=== PATIENT | male | born 1990 | race Caucasian/White ===

== ENCOUNTER 2020-05-18 16:10 | Outpatient (REF) | payer OTHER, SELFPAY | END 2020-05-18 16:11 | disposition home or self-care (01) | LOC: HO.LAB 16:10 | PROVIDERS: PCP Internal Medicine; Visit Provider Internal Medicine | DX: Z20.828 Contact with and (suspected) exposure to other viral communicable diseases (principal) | CPT/HCPCS: U0003 ==

== ENCOUNTER 2020-09-16 09:08 | Outpatient (REF) | payer OTHER, SELFPAY | END 2020-09-16 09:09 | disposition home or self-care (01) | LOC: HO.LAB 09:08 | PROVIDERS: Visit Provider Internal Medicine | DX: Z20.822 Contact with and (suspected) exposure to COVID-19 (principal) | CPT/HCPCS: 36415; C9803; U0003; U0005 ==

== ENCOUNTER 2020-09-22 08:47 | Outpatient (REF) | payer OTHER, SELFPAY | END 2020-09-22 08:48 | disposition home or self-care (01) | LOC: HO.LAB 08:47 | PROVIDERS: Visit Provider Internal Medicine | DX: Z20.822 Contact with and (suspected) exposure to COVID-19 (principal) | CPT/HCPCS: 36415; C9803; U0003; U0005 ==

== ENCOUNTER 2020-10-04 09:01 | Outpatient (REF) | payer OTHER, SELFPAY | END 2020-10-04 09:02 | disposition home or self-care (01) | LOC: HO.LAB 09:01 | PROVIDERS: Visit Provider Internal Medicine | DX: Z20.822 Contact with and (suspected) exposure to COVID-19 (principal) | CPT/HCPCS: 36415; C9803; U0003; U0005 ==

== ENCOUNTER 2021-02-10 09:22 | Outpatient (REF) | payer OTHER, SELFPAY ==
[2021-02-10 10:01] LABS: MANUAL DIFF FLAG NO
[2021-02-10 10:07] LABS: Glucose Urine UA NEG (NEG); Leukocyte Esterase Urine NEG (NEG); Nitrite Urine NEG (NEG); Specific Gravity - Urine >= 1.030 (1.005-1.025); UACC Culture Trigger NO; Urine Blood 1+ (NEG); Urine Ketones NEG (NEG); Urine Protein NEG (NEG-TRACE)
[2021-02-10 10:13] LABS: Basophils Percent Auto 0.4 % (0-2); Eosinophils Absolute Auto 0.2 X10*3/uL (0.0-0.4); Eosinophils Percent Auto 3.4 % (0-4); Hematocrit 45.2 % (42-52); Hemoglobin 15.3 g/dl (14.0-18.0); Imm Gran Abs Auto 0.03 X10*3/uL (0.00-0.03); Imm Gran Pct Auto 0.5 % (0.0-0.4); Lymphocytes Absolute Auto 1.8 X10*3/uL (1.2-4.9); Lymphocytes Percent Auto 32.4 % (20-40); Mean Corpuscular HGB Conc 33.8 g/dl (31.0-36.0); Mean Corpuscular Hemoglobin 30.4 pg (27.0-33.0); Mean Corpuscular Volume 89.9 fL (80-98); Mean Platelet Volume 9.4 fL (9.4-12.4); Monocytes Absolute Auto 0.5 X10*3/uL (0.1-1.2); Monocytes Percent Auto 8.2 % (2-11); Neutrophils Absolute Auto 3.1 X10*3/uL (2.0-8.3); Neutrophils Percent Auto 55.1 % (45-73); Platelet Count 287 X10*3/uL (160-400); Red Blood Count 5.03 X10*6/uL (4.60-5.80); Red Cell Distribution Width 12.5 % (11.0-16.0); White Blood Count 5.6 X10*3/uL (4.8-10.8)
[2021-02-10 10:14] LABS: Appearance Urine CLEAR; Color Urine YELLOW
[2021-02-10 10:19] LABS: Sperm Urine NOTED; Squamous Epithelial Cell Urine 1+ /LPF
[2021-02-10 11:13] LABS: TSH reflex Free T4 2.03 uIU/mL (0.32-4.0); Vitamin D 25-OH Total 23.1 ng/mL (>30)
[2021-02-10 11:14] LABS: Alanine Aminotransferase 21 U/L (0-40); Albumin Level 4.6 g/dL (3.5-5.0); Alkaline Phosphatase 52 U/L (39-117); Anion Gap 11 (12-20); Aspartate Amino Transferase 15 U/L (5-37); Bilirubin Total 0.7 mg/dL (0.0-1.0); Blood Urea Nitrogen 13 mg/dL (9-16); Calcium 9.4 mg/dL (8.4-10.2); Carbon Dioxide 26 mmol/L (22-29); Chloride 108 mmol/L (96-108); Cholesterol 235 mg/dL; Estimated Glomerular Filt Rate > 60; Glucose Fasting 90 mg/dL (60-99); HDL Cholesterol 65 mg/dL; LDL Cholesterol Calculated 127 mg/dl; Potassium 4.4 mmol/L (3.3-5.1); Sodium 141 mmol/L (135-145); Total Protein 7.5 g/dL (6.5-8.0); Triglycerides 217 mg/dL
== END 2021-02-10 09:23 | disposition home or self-care (01) ==
LOC: HO.LAB 09:22
PROVIDERS: PCP Internal Medicine; Visit Provider Internal Medicine
DX: Z00.00 Encounter for general adult medical examination without abnormal findings (principal); E55.9 Vitamin D deficiency, unspecified; E66.3 Overweight
CPT/HCPCS: 36415; 80053; 80061; 81001; 82306; 84443; 85025

== ENCOUNTER 2021-09-22 11:12 | Outpatient (REF) | payer OTHER, SELFPAY ==
--- NOTE | ~2021-09-22 | XR_ITS ---
EXAMINATION: XR RIGHT SHOULDER XR RIGHT SCAPULA CLINICAL INFORMATION: Pain in right shoulder COMPARISON: Chest radiograph 08/29/2018 TECHNIQUE: AP and Y views of the right scapula AP, Grashey, lateral scapular Y view of the right shoulder FINDINGS: The bones and soft tissues are normal. No fracture. Glenohumeral and acromioclavicular alignment is anatomic with normal joint space. No abnormal soft tissue calcifications. XR/XR scapula RT IMPRESSION: Normal shoulder
--- NOTE | ~2021-09-22 | XR_ITS ---
EXAMINATION: XR RIGHT SHOULDER XR RIGHT SCAPULA CLINICAL INFORMATION: Pain in right shoulder COMPARISON: Chest radiograph 08/29/2018 TECHNIQUE: AP and Y views of the right scapula AP, Grashey, lateral scapular Y view of the right shoulder FINDINGS: The bones and soft tissues are normal. No fracture. Glenohumeral and acromioclavicular alignment is anatomic with normal joint space. No abnormal soft tissue calcifications. XR/XR shoulder RT min 2V IMPRESSION: Normal shoulder
== END 2021-09-22 11:13 | disposition home or self-care (01) ==
LOC: HO.XRAY 11:12
PROVIDERS: PCP Internal Medicine; Visit Provider Nurse Practitioner Family
DX: M25.511 Pain in right shoulder (principal)
CPT/HCPCS: 73010; 73030

== ENCOUNTER 2021-09-27 22:15 | Emergency (ER) | payer OTHER, SELFPAY ==
--- NOTE | ~2021-09-27 | XR_ITS ---
EXAMINATION: XR SHOULDER, RIGHT CLINICAL INFORMATION: Shoulder pain COMPARISON: Shoulder radiographs 09/22/2021, 5 days ago TECHNIQUE: AP external rotation, Grashey, scapular Y, and axillary views of the right shoulder. FINDINGS: The bones and soft tissues are again seen to be normal. No fracture. Glenohumeral and acromioclavicular alignment is anatomic with normal joint space. No abnormal soft tissue calcifications. XR/XR shoulder RT min 2V IMPRESSION: Normal right shoulder.
[2021-09-27 22:21] VITALS: BP 161/102; PULSE 79; RESP 16; TEMP 36.9; O2SAT 98; BMI 33.4
--- NOTE | 2021-09-27 22:59 | ED.GENADULT ---
HPI - General Adult General Chief complaint: Extremity Problem Stated complaint: rt shoulder pain Time Seen by Provider: 09/27/21 22:59 Source: patient Mode of arrival: ambulatory Limitations: no limitations History of Present Illness HPI narrative: Patient is a 31 year old male presenting to the emergency department today with right shoulder and neck pain. Patient states that he has been having right shoulder and right neck pain for the last few weeks. Patient states that it starts on the right side of his neck and goes down into his shoulder. Patient denies any dizziness, lightheadedness, abdominal pain, nausea, vomiting, fever, chills, blurry vision, double vision, loss of vision, chest pain, difficulty breathing, shortness of breath, back pain, night sweats, pain with urination, increased urinary frequency, increased urinary urgency, blood in his urine or stool, syncope or a near syncopal episode, recent trauma or falls, bowel incontinence, bladder incontinence, bowel retention, bladder retention, or any other complaints at this time. Onset (ago): week(s) Location: neck and upper extremity Radiation: extremity Severity: mild Severity scale (1-10): 3 Quality: dull Pain Consistency: intermittent Relieving factors: none Exacerbating factors: none Associated symptoms: denies other symptoms Related Data Home Medications Medication Instructions Recorded Confirmed tizanidine 4 mg tablet 4 mg PO TID PRN 01/18/21 07/21/21 Previous Rx's Medication Instructions Recorded benzonatate 100 mg capsule 100 mg PO BID PRN #14 cap 07/21/21 acetaminophen 500 mg tablet 500 - 1,000 mg PO Q6H PRN #30 tab 09/22/21 nabumetone 500 mg tablet 500 mg PO BID #20 tab 09/22/21 cyclobenzaprine 10 mg tablet 10 mg PO TID PRN 7 Days #20 tab 09/27/21 Allergies Allergy/AdvReac Type Severity Reaction Status Date / Time No Known Allergies Allergy Verified 09/22/21 10:52 Review of Systems Constitutional: Constitutional: Reports no additional constitutional complaints, Denies chills, Denies fever(s) and Denies night sweats Eyes: Eyes: Reports no additional eye complaints, Denies blurry vision, Denies change in vision, Denies diplopia, Denies eye discharge, Denies loss of vision and Denies eye pain ENT: Denies dizziness Cardiovascular: Cardiovascular: Reports no additional cardiovascular complaints, Denies chest pain, Denies lightheadedness, Denies Loss of Consciousness and Denies dyspnea Respiratory: Respiratory: Reports no additional respiratory complaints and Denies dyspnea Gastrointestinal: Gastrointestinal: Reports no additional gastrointestinal complaints, Denies abdominal pain, Denies melena, Denies hematochezia, Denies change in bowel habits and Denies change in stool character Genitourinary: Genitourinary: Reports no additional male genitourinary complaints, Denies hematuria, Denies oliguria, Denies difficulty urinating, Denies dysuria, Denies urinary frequency, Denies urinary hesitancy, Denies urinary incontinence and Denies urinary urgency Musculoskeletal: Musculoskeletal: Reports no additional musculoskeletal complaints, Denies numbness and Denies tingling Comments: right neck and shoulder pain Neurologic: Denies dizziness, Denies loss of vision, Denies numbness and Denies tingling Psychiatric: Psychiatric: Reports no additional psychiatric complaints Endocrine: Endocrine: Reports no additional endocrine complaints Hematologic/Lymphatic: Hematologic/Lymphatic: Reports no additional hematologic/lymphatic complaints Allergic/Immunologic: Allergic/Immunologic: Reports no additional allergic/immunologic complaints [facility] Past Medical History Attestation statement: The following information was validated with the patient. Source: old records reviewed Medical History Acute sinusitis Annual physical exam Anxiety Chronic pain of right knee Depression Headache History of meconium aspiration Low back pain Migraine Overweight (BMI 25.0-29.9) Surgical History History of arthroscopy of right knee (~06/25/13) Family History Family History Father Diabetes Stroke Hypertension Mother Diabetes Social History Social History Housing: Apartment Alcohol intake: current Alcohol intake frequency: holidays/special occasions only Patient Tobacco Use Status: Never used Tobacco e-Cigarette/Vaping Use: Never Used Second Hand Smoke Exposure: Yes Advance Directives: No Advance Directives Information Provided: No service: No Current occupational status: unemployed Cognitive needs: No Hearing needs: No Vision needs: Yes (glasses) Physical Exam ED Vital Signs: Vital Signs - 24 hr 09/27/21 22:21 Temperature 98.4 F Pulse Rate 79 Respiratory Rate 16 Blood Pressure 161/102 H Pulse Oximetry 98 BMI result Body Mass Index 33.4 Const General: cooperative, no acute distress, alert and awake Nutritional Appearance: well nourished Orientation/consciousness: patient oriented x3 Limitations: no limitations HENMT Head: Yes normal to inspection and Yes atraumatic Ears: hearing grossly normal bilaterally and external ears normal General nose exam: Normal external nose present, no nasal discharge noted and no epistaxis Face and sinus: Yes normal facial exam, No abrasion and No laceration Mouth: Normal oral and palatal mucosa present, no drooling and no muffled voice Eyes General: appearance normal, both eyes and all related structures Periorbital: periorbital findings normal Eyelids: Yes eyelids normal Conjunctivae: conjunctivae normal Pupils: Equal, round and reactive pupils present EOM: EOMs intact bilaterally Neck Neck: Yes normal visual inspection, Yes full ROM and Yes no lymphadenopathy Chest Chest palpation & inspection: normal inspection of the chest Resp Effort & Inspection: normal respiratory effort and able to speak in complete sentences GI Inspection: Yes normal to inspection Neuro General: patient oriented x3 and moves all extremities Cranial nerves: Yes Equal, round and reactive pupils present Cognition (Neuro): normal cognition Motor exam (neuro): 5/5 motor strength present throughout Sensory Exam: Normal double simultaneous stimulation for sensation Coordination: [id number] test normal Extrem General: Yes normal to inspection, Yes full ROM and Yes capillary refill normal Psych Appearance: grossly normal Mental Status: mental status grossly normal Affect: normal affect Attitude: cooperative Thought process: Normal thought process present Thought content: Normal thought content present Insight: Good insight present (Psych) Medical Decision Making MDM Narrative Medical decision making narrative: Patient is a 31 year old male presenting to the emergency department today with right shoulder and right neck pain. Patient's physical exam was unremarkable. Patient's right shoulder x-ray showed no acute process. I explained my physical exam findings as well as all test results to the patient. I answered all questions asked by the patient. Patient received IM Solu-medro, IM Torado, and PO Flexeril which he stated helped his pain significantly. I stressed the importance of the patient taking his medication as prescribed. I stressed the importance of the patient following up with his primary care provider and an orthopedic provider. I stressed the importance of the patient returning to the emergency department immediately if his symptoms were to worsen or if he were to develop any dizziness, shortness of breath, difficulty breathing, chest pain, blurry vision, loss of vision, nausea, vomiting, abdominal pain, fever, chills, back pain, or any other complaints. Patient verbalized agreement and understanding with this treatment plan and discharge. Differential Diagnosis Differential Diagnosis: shoulder pain, neck pain, cervical radiculopathy Medical Records Medical records reviewed: Yes I reviewed the patient's medical records. Imaging Data Right shoulder x-ray: Attestation: I personally reviewed and interpreted this imaging study as follows: My impression: No acute fracture. Radiologist's impression: EXAMINATION: XR SHOULDER, RIGHT CLINICAL INFORMATION: Shoulder pain? COMPARISON: Shoulder radiographs 09/22/2021, 5 days ago? TECHNIQUE: AP external rotation, Grashey, scapular Y, and axillary views of the right shoulder. FINDINGS: The bones and soft tissues are again seen to be normal. No fracture. Glenohumeral and acromioclavicular alignment is anatomic with normal joint space. No abnormal soft tissue calcifications.? XR/XR shoulder RT min 2V IMPRESSION: Normal right shoulder. Dictated By: ELANA RICO MD Signed By: Electronically signed by ELANA RICO MD 09/27/21 [id number] Discharge Plan Discharge Clinical Impression: Cervical radiculopathy Patient Disposition: Home, Self-Care Instructions: Cervical Radiculopathy (ED) Additional Instructions: Call to schedule a follow up appointment with an Orthopedic provider. Follow up with your primary care provider. Return to the emergency department immediately if your symptoms worsen or if you develop any dizziness, shortness of breath, difficulty breathing, chest pain, blurry vision, loss of vision, nausea, vomiting, abdominal pain, fever, chills, back pain, or any other complaints. Prescriptions: New cyclobenzaprine 10 mg tablet 10 mg PO TID PRN (Reason: muscle spasm) 7 Days Qty: 20 0RF No Action tizanidine 4 mg tablet 4 mg PO TID PRN0RF benzonatate 100 mg capsule 100 mg PO BID PRN (Reason: cough) Qty: 14 0RF nabumetone 500 mg tablet 500 mg PO BID Qty: 20 0RF acetaminophen 500 mg tablet 500 - 1,000 mg PO Q6H PRN (Reason: pain) Qty: 30 0RF Referrals: aSmpson Arreola MD [Primary Care Provider] - 2 days Raheel Soriano MD [Physician] - 2 days Stand Alone Forms: Work/School Release Print Language: Armenian
[2021-09-28] MEDS: Cyclobenzaprine HCl 10 MG TABLET PO (00:19)
[2021-09-28] MEDS: Ketorolac Tromethamine 15 MG/ML VIAL IM (00:21)
[2021-09-28] MEDS: methylPREDNISolone Sod Succ 125 MG/2 ML VIAL 120 MG IM (00:21)
== END 2021-09-28 00:36 | disposition home or self-care (01) ==
PROVIDERS: Emergency Provider Internal Medicine; PCP Internal Medicine
DX: M54.12 Radiculopathy, cervical region (principal); M25.511 Pain in right shoulder
CPT/HCPCS: 73030; 96372; 99284; J1885; J2930

== ENCOUNTER → 2021-10-17 14:49 | Outpatient (BNVA) | payer OTHER, SELFPAY | PROVIDERS: PCP Internal Medicine; Visit Provider Physician Assistant | DX: M25.511 Pain in right shoulder (principal) | CPT/HCPCS: 99202 ==

== ENCOUNTER → 2021-11-11 08:41 | Outpatient (BNVA) | payer OTHER, SELFPAY | PROVIDERS: PCP Internal Medicine; Visit Provider Nurse Practitioner Family | DX: M51.24 Other intervertebral disc displacement, thoracic region (principal); M62.838 Other muscle spasm | CPT/HCPCS: 99202 ==

== ENCOUNTER 2021-11-17 10:41 | Outpatient (REF) | payer OTHER, SELFPAY ==
--- NOTE | ~2021-11-17 | XR_ITS ---
EXAMINATION: XR THORACOLUMBAR SPINE CLINICAL INFORMATION: Chronic midline thoracic pain. COMPARISON: 09/18/2008 and CTA of 07/03/2011. TECHNIQUE: Three-view thoracic spine. FINDINGS: The bony texture and alignment of the thoracic spine is satisfactory. No acute fracture identified. Pedicles intact. No abnormal paraspinal line bulge is seen. Disc spaces are maintained. XR/XR thoracic spine 2V IMPRESSION: No significant thoracic spine abnormality identified.
== END 2021-11-17 10:42 | disposition home or self-care (01) ==
LOC: HO.XRAY 10:41
PROVIDERS: PCP Internal Medicine; Visit Provider Nurse Practitioner Family
DX: M51.24 Other intervertebral disc displacement, thoracic region (principal)
CPT/HCPCS: 72070

== ENCOUNTER 2021-12-01 11:00 | Outpatient (RCR) | payer OTHER, SELFPAY ==
--- NOTE | 2021-10-21 14:02 | MHC.PT.EP ---
[facility] [place] Office [place] Office [place] Office [address] Troy Delvalle [address] [phone] F: [phone] F: [phone] F: [phone] F: [phone] Physical Therapy Plan of Care Date of Evaluation: Date of Surgery: Diagnosis: right shoulder pain Assessment: The patient has pain with all functional shoulder movements. He has decreased ROM, strength which is limited by pain. He has a swollen area in his quadrangular angle that is painful to the touch and has some fluid mobility under the swelling. His cervical spine was screened due to his subjective report however pain free cervical mobility. He had pain free manual PA pressure to his cervical spine. Based on Shey exam it does not appear to be a cervical issue. He has poor sitting posture. He is a good candidate for skilled PT. Frequency and Duration: The patient will be seen 2x/week x 4 weeks. Short Term Goals: . Pt to be able to report 50% improvement in functional reaching. - Pt to be able to report 50% less pain with getting dressed. Longterm Goals: 4 weeks - The patient to have greater than 160 degrees of flexion and abduction to show improved functional ROM. 4 weeks ? The patient to have 5/5 strength with flexion and abduction to demonstrate functional strength 4 weeks ? The patient to be able to return to all functional reaching, self care ADL's without any limitation from pain or loss of ROM. Treatment Plan: Modalities to reduce pain, spasms and effusion. Manual therapy to restore motion and function. Therapeutic exercise to improve strength and flexibility. Neuromuscular re-education for posture and balance. Therapeutic activities to return to functional activities of daily living. Electronically signed by: Linda Horowitz PT DPT Please sign and return to therapist. Thank you for your referral.
== END 2022-01-13 08:47 | disposition home or self-care (01) ==
LOC: HO.PT 11:00
PROVIDERS: PCP Internal Medicine; Visit Provider Internal Medicine
DX: M25.511 Pain in right shoulder (principal)
CPT/HCPCS: 97033; 97110; 97112; 97140; 97162

== ENCOUNTER 2021-12-31 11:41 | Outpatient (REF) | payer OTHER, SELFPAY ==
[2021-12-31 14:19] LABS: Binax Internal Control QC Valid; Binax Now Covid-19 Ag Negative (Negative)
== END 2021-12-31 11:42 | disposition home or self-care (01) ==
LOC: HO.LAB 11:41
PROVIDERS: PCP Internal Medicine; Visit Provider Physician Assistant Medical
DX: Z20.822 Contact with and (suspected) exposure to COVID-19 (principal)
CPT/HCPCS: 87811

== ENCOUNTER 2022-01-06 09:25 | Outpatient (REF) | payer OTHER, SELFPAY ==
[2022-01-06 09:40] LABS: MANUAL DIFF FLAG NO
[2022-01-06 10:12] LABS: Basophils Percent Auto 0.5 % (0-2); Eosinophils Absolute Auto 0.2 X10*3/uL (0.0-0.4); Eosinophils Percent Auto 3.3 % (0-4); Hematocrit 44.9 % (42.0-52.0); Hemoglobin 14.9 g/dl (14.0-18.0); Lymphocytes Percent Auto 37.3 % (20-40); Mean Corpuscular HGB Conc 33.2 g/dl (31.0-36.0); Mean Corpuscular Hemoglobin 29.6 pg (27.0-33.0); Mean Corpuscular Volume 89.1 fL (80.0-98.0); Mean Platelet Volume 9.4 fL (9.4-12.4); Monocytes Absolute Auto 0.4 X10*3/uL (0.1-1.2); Monocytes Percent Auto 7.3 % (2-11); Neutrophils Absolute Auto 2.8 x10*3/uL (2.0-8.3); Neutrophils Percent Auto 51.6 % (45-73); Platelet Count 320 X10*3/uL (160-400); Red Blood Count 5.04 X10*6/uL (4.60-5.80); Red Cell Distribution Width 12.3 % (11.0-16.0); White Blood Count 5.5 X10*3/uL (4.8-10.8)
[2022-01-06 10:38] LABS: Alanine Aminotransferase 26 U/L (0-40); Albumin Level 4.5 g/dL (3.5-5.0); Alkaline Phosphatase 59 U/L (39-117); Anion Gap 12 (12-20); Aspartate Amino Transferase 18 U/L (5-37); Bilirubin Total 0.7 mg/dL (0.0-1.0); Blood Urea Nitrogen 19 mg/dL (9-16); Calcium 9.2 mg/dL (8.4-10.2); Carbon Dioxide 26 mmol/L (22-29); Chloride 107 mmol/L (96-108); Cholesterol 219 mg/dL; Estimated Glomerular Filt Rate > 60; Glucose Fasting 95 mg/dL (60-99); HDL Cholesterol 60 mg/dL; LDL Cholesterol Calculated 143 mg/dl; Potassium 4.8 mmol/L (3.3-5.1); Sodium 140 mmol/L (135-145); Total Protein 7.5 g/dL (6.5-8.0); Triglycerides 81 mg/dL
[2022-01-12 12:26] LABS: Vitamin D 25-OH, D2 <4 ng/mL; Vitamin D 25-OH, D3 25 ng/mL; Vitamin D 25-OH, Total 25 ng/mL (30-100)
== END 2022-01-06 09:26 | disposition home or self-care (01) ==
LOC: HO.LAB 09:25
PROVIDERS: PCP Internal Medicine; Visit Provider Nurse Practitioner Family
DX: Z00.00 Encounter for general adult medical examination without abnormal findings (principal); I10 Essential (primary) hypertension; E78.00 Pure hypercholesterolemia, unspecified; Z83.3 Family history of diabetes mellitus
CPT/HCPCS: 36415; 80053; 80061; 82306; 85025

== ENCOUNTER 2022-03-28 09:51 | Outpatient (REF) | payer OTHER, SELFPAY ==
[2022-03-28 10:26] LABS: COVID-19 Test Negative (Negative); IDNOW Serial# 16C4AD1C
== END 2022-03-28 09:52 | disposition home or self-care (01) ==
LOC: HO.LAB 09:51
PROVIDERS: Visit Provider Internal Medicine
DX: Z20.822 Contact with and (suspected) exposure to COVID-19 (principal)
CPT/HCPCS: 87635; C9803

== ENCOUNTER 2022-06-23 08:42 | Outpatient (REF) | payer OTHER, SELFPAY ==
[2022-06-23 09:09] LABS: COVID-19 Test Positive (Negative); IDNOW Serial# BCCEAD1C
== END 2022-06-23 08:43 | disposition home or self-care (01) ==
LOC: HO.LAB 08:42
PROVIDERS: Visit Provider Internal Medicine
DX: Z20.822 Contact with and (suspected) exposure to COVID-19 (principal)
CPT/HCPCS: 87635; C9803

== ENCOUNTER 2022-06-26 08:58 | Outpatient (REF) | payer OTHER, SELFPAY ==
[2022-06-26 09:22] LABS: COVID-19 Test Positive (Negative); IDNOW Serial# BCCEAD1C
== END 2022-06-26 08:59 | disposition home or self-care (01) ==
LOC: HO.LAB 08:58
PROVIDERS: Visit Provider Internal Medicine
DX: Z20.822 Contact with and (suspected) exposure to COVID-19 (principal)
CPT/HCPCS: 87635; C9803

== ENCOUNTER 2022-06-28 07:57 | Outpatient (REF) | payer OTHER, SELFPAY ==
[2022-06-28 08:22] LABS: COVID-19 Test Positive (Negative); IDNOW Serial# 16C4AD1C
== END 2022-06-28 07:58 | disposition home or self-care (01) ==
LOC: HO.LAB 07:57
PROVIDERS: Visit Provider Internal Medicine
DX: Z20.822 Contact with and (suspected) exposure to COVID-19 (principal)
CPT/HCPCS: 87635; C9803

== ENCOUNTER 2022-06-30 07:54 | Outpatient (REF) | payer OTHER, SELFPAY ==
[2022-06-30 08:29] LABS: COVID-19 Test Positive (Negative); IDNOW Serial# 16C4AD1C
== END 2022-06-30 07:55 | disposition home or self-care (01) ==
LOC: HO.LAB 07:54
PROVIDERS: Visit Provider Internal Medicine
DX: Z20.822 Contact with and (suspected) exposure to COVID-19 (principal)
CPT/HCPCS: 87635; C9803

== ENCOUNTER 2022-10-23 13:50 | Outpatient (REF) | payer OTHER, SELFPAY ==
[2022-10-23 14:38] LABS: Influenza A PCR NEGATIVE (Negative); Influenza B PCR NEGATIVE (Negative); Resp Syncy Virus RNA Qual PCR NEGATIVE (Negative); SARS COV2 PCR INHOUSE NEGATIVE (Negative)
== END 2022-10-23 13:51 | disposition home or self-care (01) ==
LOC: HO.LNP 13:50
PROVIDERS: Visit Provider Internal Medicine
DX: Z20.822 Contact with and (suspected) exposure to COVID-19 (principal); R43.9 Unspecified disturbances of smell and taste
CPT/HCPCS: 0241U

== ENCOUNTER 2023-01-25 08:24 | Outpatient (REF) | payer OTHER, SELFPAY ==
[2023-01-25 08:40] LABS: MANUAL DIFF FLAG NO
[2023-01-25 09:11] LABS: Basophils Absolute Auto 0.1 X10*3/uL (0.0-0.2); Basophils Percent Auto 0.9 % (0-2); Eosinophils Absolute Auto 0.2 X10*3/uL (0.0-0.4); Eosinophils Percent Auto 4.3 % (0-4); Hematocrit 43.8 % (42.0-52.0); Hemoglobin 15.1 g/dl (14.0-18.0); Imm Gran Abs Auto 0.02 X10*3/uL (0.00-0.03); Imm Gran Pct Auto 0.4 % (0.0-0.4); Lymphocytes Percent Auto 35.8 % (20-40); Mean Corpuscular HGB Conc 34.5 g/dl (31.0-36.0); Mean Corpuscular Hemoglobin 30.6 pg (27.0-33.0); Mean Corpuscular Volume 88.8 fL (80.0-98.0); Mean Platelet Volume 9.8 fL (9.4-12.4); Monocytes Absolute Auto 0.4 X10*3/uL (0.1-1.2); Neutrophils Absolute Auto 2.8 x10*3/uL (2.0-8.3); Neutrophils Percent Auto 50.6 % (45-73); Platelet Count 299 X10*3/uL (160-400); Red Blood Count 4.93 X10*6/uL (4.60-5.80); Red Cell Distribution Width 12.6 % (11.0-16.0); White Blood Count 5.5 X10*3/uL (4.8-10.8)
[2023-01-25 09:54] LABS: Alanine Aminotransferase 29 U/L (0-40); Albumin Level 4.6 g/dL (3.5-5.0); Alkaline Phosphatase 58 U/L (39-117); Anion Gap 13 (12-20); Aspartate Amino Transferase 22 U/L (5-37); Bilirubin Total 0.8 mg/dL (0.0-1.0); Blood Urea Nitrogen 16 mg/dL (9-16); Calcium 9.5 mg/dL (8.4-10.2); Carbon Dioxide 24 mmol/L (22-29); Chloride 106 mmol/L (96-108); Cholesterol 227 mg/dL; Estimated Glomerular Filt Rate > 60; Glucose Fasting 100 mg/dL (60-99); HDL Cholesterol 65 mg/dL; LDL Cholesterol Calculated 146 mg/dl; Potassium 3.9 mmol/L (3.3-5.1); Sodium 139 mmol/L (135-145); Total Protein 7.8 g/dL (6.5-8.0); Triglycerides 80 mg/dL
[2023-01-25 10:12] LABS: TSH reflex Free T4 3.71 uIU/mL (0.32-4.0); Vitamin D 25-OH Total 29.2 ng/mL (>30)
[2023-01-25 10:19] LABS: Folate 11.8 ng/mL (> or = 4.0); Vitamin B12 510 pg/mL (200-900)
[2023-01-25 11:30] LABS: Appearance Urine Clear; Color Urine Yellow; Glucose Urine UA Negative (Negative); Leukocyte Esterase Urine Negative (Negative); Nitrite Urine Negative (Negative); PH 5.5 (5.0-9.0); Specific Gravity - Urine 1.025 (1.005-1.025); UMIC TRIGGER UACC YES; Urine Blood Small (1+) (Negative); Urine Ketones Negative (Negative); Urine Protein 30 (1+) mg/dL (Neg-Trace)
[2023-01-25 11:56] LABS: Bacteria Urine None Seen (None Seen); RBC Urine 0-2 /HPF (0-2); Squamous Epithelial Cell Urine 0-2 /HPF (0-2); WBC Urine 0-5 /HPF (0-5)
== END 2023-01-25 08:25 | disposition home or self-care (01) ==
LOC: HO.LAB 08:24
PROVIDERS: PCP Internal Medicine; Visit Provider Internal Medicine
DX: I10 Essential (primary) hypertension (principal); E78.00 Pure hypercholesterolemia, unspecified; E53.8 Deficiency of other specified B group vitamins; E55.9 Vitamin D deficiency, unspecified
CPT/HCPCS: 36415; 80053; 80061; 81001; 82306; 82607; 82746; 84443; 85025

== ENCOUNTER 2023-02-22 08:40 | Outpatient (REF) | payer OTHER, SELFPAY ==
--- NOTE | 2023-02-22 08:42 | EMG_ITS ---
Bilateral median and ulnar motor and sensory studies were performed. Bilateral radial sensory studies were performed and paraspinal muscles were tested with a needle. IMPRESSION: 1. Moderately severe bilateral median neuropathy across carpal tunnel. 2. Mild left ulnar neuropathy across cubital tunnel. MD YARITZA Shaffer/VLADIMIR / [id number]
== END 2023-02-22 08:41 | disposition home or self-care (01) ==
LOC: HO.NEURO 08:40
PROVIDERS: PCP Internal Medicine; Visit Provider Internal Medicine
DX: R20.2 Paresthesia of skin (principal)
CPT/HCPCS: 95860; 95886; 95907; 95911

== ENCOUNTER 2023-04-13 10:45 | Outpatient (AMB) | payer OTHER, SELFPAY ==
--- NOTE | 2023-04-13 11:03 | MHC.OFFVIS ---
Intake Intake Visit Reasons: Excavating Contractor- Carpal tunnel syndrome, bilateral Intake Note: Chauncey a 32 year old right hand dominant male who presents today for an evaluation of bilateral hands. Patient reports pain, numbness and tingling has been present a little over 2 months and has been getting worse. He was seen by PCP who ordered an EMG and referred to orthopedics. He has numbness and tingling is in his thumbs, 2nd and 3rd digit. States frequently drops items and will have swelling in hands. No other tx. Allergies No Known Allergies Allergy (Verified 01/12/23 10:54) HPI Excavating Contractor- Carpal tunnel syndrome, bilateral HPI Details 32-year-old right hand dominant male who presents to the office today for evaluation of bilateral hands for about 2 months. He was seen by his PCP where an EMG study was performed and he was referred to our office. He states he has constant worsening pain, numbness and tingling in his thumbs, 2nd and 3rd digits. He also c/o swelling in his hands and frequently drops items. He has not had any treatment in the past. He works as an [employer] agent. [facility] Medical History (Updated 02/28/23 @ 18:18 by Sampson Arreola MD) Obesity (BMI 30-39.9) Allergic rhinitis Headache Overweight (BMI 25.0-29.9) History of meconium aspiration Depression Anxiety Low back pain Chronic pain of right knee Surgical History History of arthroscopy of right knee (~06/25/13) Family History Father Diabetes Stroke Hypertension Mother Diabetes Social History (Updated 04/13/23 @ 11:05 by Erica Jerome Silvia) Housing: Apartment Alcohol intake: current Alcohol intake frequency: holidays/special occasions only Patient Tobacco Use Status: Never used Tobacco e-Cigarette/Vaping Use: Never Used Second Hand Smoke Exposure: Yes service: No Current occupational status: employed 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 Current occupational exposures/hazards: No Cognitive needs: No Hearing needs: No Vision needs: Yes (glasses) Review of Systems Const All systems reviewed & are unremarkable except as noted in HPI and below Physical Exam Const General: cooperative, healthy appearing, comfortable, no acute distress, well developed and alert Orientation/consciousness: patient oriented x3 HEENT Head: Yes normal to inspection, Yes normocephalic and Yes atraumatic Eyes General: appearance normal, both eyes and all related structures Resp Effort & Inspection: normal respiratory effort and able to speak in complete sentences Cardio Rate: regular rate Peripheral pulses: Peripheral pulses 2+ throughout GI Palpation (GI): Soft to palpation Skin Lesions: no lesions Rashes: no rashes Neuro General: patient oriented x3 Extrem Other: Bilateral wrist: Normal to inspection. Tenderness over the carpal canal. Numbness and tingling over the median nerve distribution of the right hand. Able to make a full fist and fully extend all fingers. Positive Tinel's. Results Reviewed Results Reviewed: EMG/NCS 02/22/23 IMPRESSION: 1. Moderately severe bilateral median neuropathy across carpal tunnel. 2. Mild left ulnar neuropathy across cubital tunnel. Assessment & Plan Assessment & Plan (1) Carpal tunnel syndrome, bilateral: Code(s): G56.03 - Carpal tunnel syndrome, bilateral upper limbs Plan We discussed options which include conservative vs operative treatment. Since the patient has been symptomatic for several months and it is impacting their daily life, the decision was made to undergo right carpal tunnel release. We discussed risk, benefits and alternatives. Risk including but not limited to infection, weakness, stiffness, ongoing numbness or tingling. The patient does understand all this and would like to proceed with left carpal tunnel release with Dr. Lake. They will be booked accordingly. Patient Instructions: Scribed for Kaycee Spence PA-C, by Jose Ramon English emergency medical services coordinator, on 04/13/2023 at 11:00 AM NABILA. IKaycee PA-C, have personally reviewed and agree with the information entered by the scribe. Coding Level of Care Code New Pt Level 4 (21910) Diagnoses Carpal tunnel syndrome, bilateral G56.03
== END 2023-04-13 11:55 | disposition home or self-care (01) ==
PROVIDERS: PCP Internal Medicine; Visit Provider Physician Assistant
DX: G56.03 Carpal tunnel syndrome, bilateral upper limbs (principal)
CPT/HCPCS: 99204

== ENCOUNTER → 2023-04-13 10:45 | Outpatient (BNVA) | payer OTHER, SELFPAY | PROVIDERS: PCP Internal Medicine; Visit Provider Physician Assistant ==

== ENCOUNTER 2023-05-15 08:57 | Outpatient (AMB) | payer OTHER, SELFPAY ==
--- NOTE | 2023-05-15 09:53 | MHC.OFFWIV ---
Intake Vital Signs 05/15/23 09:55 Height 5 ft 9 in Weight 205 lb BMI 30.3 BP 120/80 Blood Pressure Location Lt brachial Position Sitting Pulse 96 Pulse Source Pulse Oximeter Temp 98.7 F Temp Source Temporal Artery Scan Pulse Oximetry (%) 97 Oxygen Delivery Method Room Air Intake Visit Reasons: EP Cough, Sore throat (masked) Intake Note: pt is here for c/o cough and sore throat, hard to eat Patient Tobacco Use Status: Never used Tobacco Allergies No Known Allergies Allergy (Verified 05/15/23 10:22) Medication List - Last Reconciled 05/15/23 by Carlo Cabezas MD sumatriptan succinate take 1 tab at onset of headache; if no relief may repeat 1 tab after at least 2 hrs; max = 4 tabs/24 hr PO Do you need a note to return to daycare/school/sports/work: Yes HPI EP Cough, Sore throat (masked) HPI Details Patient presents for a sick visit. Reporting symptoms of sinus congestion, sore throat and difficulty swallowing. Low-grade fever. No family member is sick. No recent travel. Patient reports symptoms of malaise and fatigue. [facility] Medical History (Updated 02/28/23 @ 18:18 by Sampson Arreola MD) Obesity (BMI 30-39.9) Allergic rhinitis Headache Overweight (BMI 25.0-29.9) History of meconium aspiration Depression Anxiety Low back pain Chronic pain of right knee Surgical History History of arthroscopy of right knee (~06/25/13) Family History Father Diabetes Stroke Hypertension Mother Diabetes Social History (Updated 04/13/23 @ 11:05 by ROBBIE Francisco) Housing: Apartment Alcohol intake: current Alcohol intake frequency: holidays/special occasions only Patient Tobacco Use Status: Never used Tobacco e-Cigarette/Vaping Use: Never Used Second Hand Smoke Exposure: Yes service: No Current occupational status: employed 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 Current occupational exposures/hazards: No Cognitive needs: No Hearing needs: No Vision needs: Yes (glasses) Physical Exam Vital Signs: Last Vital Signs Temp 98.7 F 05/15/23 09:55 Pulse 96 05/15/23 09:55 BP 120/80 05/15/23 09:55 Pulse Ox 97 05/15/23 09:55 Oxygen Delivery Method Room Air 05/15/23 09:55 BMI result Body Mass Index 30.3 Const General: cooperative and healthy appearing Nutritional Appearance: well nourished Orientation/consciousness: patient oriented x3 Limitations: no limitations HEENT Head: Yes normal to inspection Eyes General: appearance normal, both eyes and all related structures Neck Neck: Yes normal visual inspection Chest Chest palpation & inspection: normal palpation of entire chest wall Resp Effort & Inspection: normal respiratory effort Neuro General: patient oriented x3 Results AMB Rapid Strep AMB Rapid Strep Negative Last Edit by Kade Garcia CMA on 05/15/23 10:06 Results Reviewed Results Reviewed: Laboratory Last Values Strep Scn [facility] Negative 05/15/23 10:06 Assessment & Plan Assessment & Plan (1) Upper respiratory tract infection: Code(s): J06.9 - Acute upper respiratory infection, unspecified Plan: Antibiotics ordered. Increase fluid intake. Tylenol for aches and pains. If symptoms worsen, follow-up here for a recheck. Orders: Orders AMB Rapid Strep Screen Today Z13.9 - Encounter for screening, unspecified Coding Level of Care Code Est Pt Level 3 (80209) Diagnoses Upper respiratory tract infection J06.9
[2023-05-15 09:55] VITALS: BP 120/80; PULSE 96; TEMP 37.1; O2SAT 97; BMI 30.3
== END 2023-05-15 10:35 | disposition home or self-care (01) ==
PROVIDERS: PCP Internal Medicine; Visit Provider Internal Medicine
DX: J06.9 Acute upper respiratory infection, unspecified (principal); J02.9 Acute pharyngitis, unspecified
CPT/HCPCS: 87880; 99213

== ENCOUNTER 2023-06-14 10:25 | Day surgery (SDC) | payer OTHER, SELFPAY ==
[2023-06-14 10:37] VITALS: BP 147/84; PULSE 80; RESP 16; TEMP 35.7; O2SAT 96; BMI 33.9
--- NOTE | 2023-06-14 12:10 | MHC.SHP ---
Pre-Procedural Eval Section A Date of Service: 06/14/23 The patient is an INPATIENT: No Changes since office visit: No Cold of Flu in the past 2 weeks, No New Medical Problems, No Changes in Medication and No Patient answered all questions The History & Physical has been completed within 30 days and I have reviewed it.: Yes Section B Chief Complaint: Carpal tunnel syndrome, left upper limb Allergies: Allergies Allergy/AdvReac Type Severity Reaction Status Date / Time No Known Allergies Allergy Verified 06/14/23 10:41 Plan I have reviewed the history and physical and performed a pertinent physical examination on my patient. No changes have occurred unless specified. Time Spent With Patient Time: Total time managing care of this patient today ____ minutes.
--- NOTE | 2023-06-14 12:10 | W.PM.OPN ---
Operative Note Operative Note Date of Service: 06/14/23 Narrative: Preop diagnosis: 1. Left Carpal tunnel syndrome Postop diagnosis: same Procedure: 1. Left Carpal tunnel release Surgeon: Ernestine Lake MD Anesthesia: local block using 1% lidocaine with epinephrine Findings: Thickened transverse carpal ligament. EBL: Less than 5 mL Specimens: None Complications: None Disposition: Brought to recovery room in stable condition Plan: Follow-up for 10-14 days for wound check and suture removal Indications: The patient is 33 years old, with left carpal tunnel syndrome that has been unresponsive to nonoperative management. The risks and benefits of operative treatment including but not limited to risk of damage to blood vessels, nerves, tendons, infection, persistent pain, persistent symptoms, or possible need for additional surgery were discussed with the patient and the patient wishes to proceed with surgery. Procedure: Once consent was obtained a local block was performed using a combination of 1% lidocaine with epinephrine. The patient was then brought back to the operating suite and placed on the operative table in supine position. The left upper extremity was prepped and draped in a standard surgical fashion. Once assured that we had a good block, a 2.0 cm longitudinal incision was made centered over the carpal tunnel. The incision was made through the skin to the subcutaneous tissues using a #15 blade. Dissection was made down to the level of the transverse carpal ligament with care being taken to protect the palmar cutaneous nerve. Once the transverse carpal ligament was clearly visualized, a longitudinal incision was made in the transverse carpal ligament 1st using a #15 blade, then using tenotomy scissors under direct visualization. Care was taken to look for and protect the motor branch of the median nerve when seen in this area. Once satisfied with our carpal tunnel release the wound was copiously irrigated with normal saline and hemostasis was obtained with a brief period of local pressure. The skin edges were reapproximated with some 5.0 nylon suture material and a sterile dressing was applied. The patient appears to have tolerated the procedure well and with no complications. All digits were well vascularized at the conclusion of the case.
[2023-06-14 12:11] VITALS: BP 127/82; PULSE 97; RESP 17; O2SAT 98
== END 2023-06-14 12:20 | disposition home or self-care (01) ==
PROVIDERS: PCP Internal Medicine; Visit Provider Orthopaedic Surgery
PROC: (CPT 64721; principal; 2023-06-14 11:30)
DX: G56.02 Carpal tunnel syndrome, left upper limb (principal); R20.0 Anesthesia of skin; R20.2 Paresthesia of skin; G89.29 Other chronic pain; M25.561 Pain in right knee; M54.50 Low back pain, unspecified; J30.9 Allergic rhinitis, unspecified; F32.A Depression, unspecified; F41.9 Anxiety disorder, unspecified
CPT/HCPCS: 64721; J0171

== ENCOUNTER → 2023-06-14 10:25 | Outpatient (BNV) | payer OTHER, SELFPAY | PROVIDERS: PCP Internal Medicine; Visit Provider Orthopaedic Surgery | DX: G56.02 Carpal tunnel syndrome, left upper limb (principal) | CPT/HCPCS: 64721 ==

== ENCOUNTER 2023-06-28 13:26 | Outpatient (AMB) | payer OTHER, SELFPAY ==
--- NOTE | 2023-06-28 13:33 | A.OFFVIS_ITS ---
Intake Vital Signs 06/28/23 13:38 Height 5 ft 6 in Weight 210 lb BMI 33.9 Intake Visit Reasons: PO-Lt CTR 06/14 Intake Note: Chauncey meneses 33 year old male presents today for a post operative left CTR on 06/14/23 AR. Patient reports his numbness and tingling has subsided. He states mild discomfort in his palm and wrist. He would like to discuss surgery to his right hand. Allergies No Known Allergies Allergy (Verified 06/28/23 13:40) HPI PO-Lt CTR 06/14 HPI Details 33-year-old male who returns to [facility] for post-op left CTR, 06/14/[address] Lake. He states his numbness and tingling has subsided. He continues to have mild discomfort in his palm and wrist. He would like to discuss surgery to his right hand. He is doing well overall and has no other concerns today. [facility] Medical History (Updated 02/28/23 @ 18:18 by Sampson Arreola MD) Obesity (BMI 30-39.9) Allergic rhinitis Headache Overweight (BMI 25.0-29.9) History of meconium aspiration Depression Anxiety Low back pain Chronic pain of right knee Surgical History History of arthroscopy of right knee (~06/25/13) Family History Father Diabetes Stroke Hypertension Mother Diabetes Social History Housing: Apartment Alcohol intake: current Alcohol intake frequency: holidays/special occasions only Patient Tobacco Use Status: Never used Tobacco e-Cigarette/Vaping Use: Never Used Second Hand Smoke Exposure: Yes service: No Current occupational status: employed 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 No redness or drainage. He has full sensation throughout the hand. He can make full fist and extend all digits. Pulses are intact. Assessment & Plan Assessment & Plan (1) S/P carpal tunnel release: Code(s): Z98.890 - Other specified postprocedural states Plan Sutures removed today, steri strips applied. He can begin increasing activity as tolerated. I recommend no heavy lifting or strenuous activities for the next 3 weeks. He will return to work at end of the month without restrictions. If symptoms persist or worsens, patient will contact the office, otherwise follow- up as needed. He was booked for right CTR with Dr. Lake. Patient Instructions: Scribed for Kaycee Spence PA-C, by Jose Ramon English medical leader, on 06/28/2023 at 1:30 PM EST. I, Kaycee Spence PA-C, have personally reviewed and agree with the information entered by the scribe. Coding Level of Care Code Global (79042) Diagnoses S/P carpal tunnel release Z98.890
[2023-06-28 13:38] VITALS: BMI 33.9
== END 2023-06-28 14:03 | disposition home or self-care (01) ==
PROVIDERS: PCP Internal Medicine; Visit Provider Physician Assistant
DX: G56.02 Carpal tunnel syndrome, left upper limb (principal)
CPT/HCPCS: 99024

== ENCOUNTER → 2023-06-28 13:26 | Outpatient (BNVA) | payer OTHER, SELFPAY | PROVIDERS: PCP Internal Medicine; Visit Provider Physician Assistant | DX: Z47.89 Encounter for other orthopedic aftercare (principal); Z98.890 Other specified postprocedural states | CPT/HCPCS: 99212 ==

== ENCOUNTER 2023-09-18 09:22 | Outpatient (AMB) | payer OTHER, SELFPAY ==
--- NOTE | 2023-09-18 09:29 | MHC.OFFVIS ---
Intake Vital Signs 09/18/23 09:30 Height 5 ft 6 in Weight 210 lb BMI 33.9 Intake Visit Reasons: Pre Op Rt CTR 09/23 AR Intake Note: Chauncey 33 yr old presents today today for his Pre Op visit for his Rt CTR 09/23 AR. Allergies No Known Allergies Allergy (Verified 09/18/23 09:32) HPI Pre Op Rt CTR 09/23 AR HPI Details Chauncey is a 33 year old right hand dominant man who presents to discuss his right carpal tunnels syndrome. He complains of numbness in the thumb, index, and middle fingers of his right hand. Symptoms intermittent, but daily, worse at night. He says his numbness is also related to gripping activities. He has a hx of a left carpal tunnel release, DOS: 06/14/23. He says his sensation is normal in all his digits and he is happy with the results of his surgery. 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 He says his currently job involves occasional heavy lifting, which he finds difficult. [facility] Medical History (Updated 09/18/23 @ 09:33 by Mitch Barillas) Obesity (BMI 30-39.9) Allergic rhinitis Headache Overweight (BMI 25.0-29.9) History of meconium aspiration Depression Anxiety Low back pain Chronic pain of right knee Surgical History History of arthroscopy of right knee (~06/25/13) Family History Father Diabetes Stroke Hypertension Mother Diabetes Social History Housing: Apartment Alcohol intake: current Alcohol intake frequency: holidays/special occasions only Patient Tobacco Use Status: Never used Tobacco e-Cigarette/Vaping Use: Never Used Second Hand Smoke Exposure: Yes service: No Current occupational status: employed 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 Normal sensation in the ulnar nerve distribution No thenar or intrinsic wasting Good APB muscle belly firing and good finger cross Vascular: Cap refill brisk ROM: He can make a fist and extend all his digits Regarding his left hand: He has normal sensation to the tips of all digits. Nerve Conuction study: IMPRESSION: 1. Moderately severe bilateral median neuropathy across carpal tunnel. 2. Mild left ulnar neuropathy across cubital tunnel. Razia Hansen MD 02/22/2023 Psych Appearance: grossly normal Affect: normal affect Attitude: cooperative Assessment & Plan Assessment & Plan (1) Carpal tunnel syndrome of right wrist: Code(s): G56.01 - Carpal tunnel syndrome, right upper limb (2) Cubital tunnel syndrome on left: Code(s): G56.22 - Lesion of ulnar nerve, left upper limb Plan Assessment & Plan: 1. Right carpal tunnel syndrome, moderate-severe Symptoms intermittent, but daily, worse at night I educated her about this condition I discussed operative and non-operative treatment options The patient would like to proceed with surgery The risks and benefits of operative treatment were discussed with the patient and the patient wishes to proceed with surgery. These risks include, but are not limited to risk of damage to blood vessels, nerves, tendons, infection, recurrence, incomplete relief of preoperative symptoms, persistent pain, possible need for further surgery and the risks associated with regional blocks and anesthesia. The plan is to take the patient to the operating room on 09/24/23 for the following procedures: 1. Right carpal tunnel release, under local All of the preoperative paperwork including the consent was reviewed today. All the patient's questions were answered. The patient understands that they will be contacted by our cane loader soon to schedule this procedure He denies Diabetes, blood thinners, asthma, heart, lung, kidney issues 2. Left carpal tunnel syndrome, S/P release DOS: 06/14/23 With normal sensation and good resolution of symptoms. 3. Left cubital tunnel syndrome, mild No complaints of numbness and tingling Scribed for Ernestine Lake MD by Mitch Lubanszky, biomedical electronics technician, on [ ] at [ ], EST. Coding Level of Care Code Est Pt Level 4 (92604) Diagnoses Carpal tunnel syndrome of right wrist G56.01 Cubital tunnel syndrome on left G56.22
[2023-09-18 09:30] VITALS: BMI 33.9
== END 2023-09-18 09:45 | disposition home or self-care (01) ==
PROVIDERS: PCP Internal Medicine; Visit Provider Orthopaedic Surgery
DX: G56.01 Carpal tunnel syndrome, right upper limb (principal); G56.22 Lesion of ulnar nerve, left upper limb
CPT/HCPCS: 99214

== ENCOUNTER → 2023-09-18 09:22 | Outpatient (BNVA) | payer OTHER, SELFPAY | PROVIDERS: PCP Internal Medicine; Visit Provider Orthopaedic Surgery | DX: G56.01 Carpal tunnel syndrome, right upper limb (principal); G56.22 Lesion of ulnar nerve, left upper limb | CPT/HCPCS: 99212 ==

== ENCOUNTER 2023-09-24 10:25 | Day surgery (SDC) | payer OTHER, SELFPAY ==
[2023-09-24 10:50] VITALS: BMI 33.7
[2023-09-24 10:59] VITALS: BP 143/89; PULSE 87; RESP 18; TEMP 36.7; O2SAT 96
--- NOTE | 2023-09-24 11:34 | MHC.SHP ---
Pre-Procedural Eval Section A - 24 Hr Update-Section A only Date of Service: 09/24/23 The patient is an INPATIENT: No Changes since office visit: No Cold of Flu in the past 2 weeks, No New Medical Problems, No Changes in Medication and No Patient answered all questions The patient has been examined within 24 hours of the surgical procedure. The History & Physical has been completed within 30 days and I have reviewed it.: Yes Section B - Complete if H&P > 30 days Chief Complaint: Carpal tunnel syndrome, right upper limb Allergies: Allergies Allergy/AdvReac Type Severity Reaction Status Date / Time No Known Allergies Allergy Verified 09/24/23 11:07 Plan I have reviewed the history and physical and performed a pertinent physical examination on my patient. No changes have occurred unless specified. Time Spent With Patient Time: Total time managing care of this patient today ____ minutes.
--- NOTE | 2023-09-24 11:35 | W.PM.OPN ---
Operative Note Operative Note Date of Service: 09/24/23 Narrative: Preop diagnosis: 1. Right Carpal tunnel syndrome Postop diagnosis: same Procedure: 1. Right Carpal tunnel release Surgeon: Ernestine Lake MD Anesthesia: local block using 1% lidocaine with epinephrine Findings: Thickened transverse carpal ligament. EBL: Less than 5 mL Specimens: None Complications: None Disposition: Brought to recovery room in stable condition Plan: Follow-up for 10-14 days for wound check and suture removal Indications: The patient is 33 years old, with right carpal tunnel syndrome that has been unresponsive to nonoperative management. The risks and benefits of operative treatment including but not limited to risk of damage to blood vessels, nerves, tendons, infection, persistent pain, persistent symptoms, or possible need for additional surgery were discussed with the patient and the patient wishes to proceed with surgery. Procedure: Once consent was obtained a local block was performed using a combination of 1% lidocaine with epinephrine. The patient was then brought back to the operating suite and placed on the operative table in supine position. The right upper extremity was prepped and draped in a standard surgical fashion. Once assured that we had a good block, a 2.0 cm longitudinal incision was made centered over the carpal tunnel. The incision was made through the skin to the subcutaneous tissues using a #15 blade. Dissection was made down to the level of the transverse carpal ligament with care being taken to protect the palmar cutaneous nerve. Once the transverse carpal ligament was clearly visualized, a longitudinal incision was made in the transverse carpal ligament 1st using a #15 blade, then using tenotomy scissors under direct visualization. Care was taken to look for and protect the motor branch of the median nerve when seen in this area. Once satisfied with our carpal tunnel release the wound was copiously irrigated with normal saline and hemostasis was obtained with a brief period of local pressure. The skin edges were reapproximated with some 5.0 nylon suture material and a sterile dressing was applied. The patient appears to have tolerated the procedure well and with no complications. All digits were well vascularized at the conclusion of the case.
[2023-09-24 13:10] VITALS: BP 133/79; PULSE 84; RESP 16; O2SAT 97
== END 2023-09-24 13:12 | disposition home or self-care (01) ==
PROVIDERS: PCP Internal Medicine; Visit Provider Orthopaedic Surgery
PROC: (CPT 64721; principal; 2023-09-24 11:40)
DX: G56.01 Carpal tunnel syndrome, right upper limb (principal); R20.0 Anesthesia of skin; E66.3 Overweight; Z68.33 Body mass index [BMI] 33.0-33.9, adult; Z98.890 Other specified postprocedural states
CPT/HCPCS: 64721; J0171

== ENCOUNTER → 2023-09-24 10:25 | Outpatient (BNV) | payer OTHER, SELFPAY | PROVIDERS: PCP Internal Medicine; Visit Provider Orthopaedic Surgery | DX: G56.01 Carpal tunnel syndrome, right upper limb (principal) | CPT/HCPCS: 64721 ==

== ENCOUNTER 2023-10-09 09:18 | Outpatient (AMB) | payer OTHER, SELFPAY ==
[2023-10-09 09:20] VITALS: BMI 33.7
--- NOTE | 2023-10-09 09:20 | MHC.OFFVIS ---
Intake Vital Signs 10/09/23 09:20 Height 5 ft 6 in Weight 209 lb BMI 33.7 Intake Visit Reasons: PO Rt CTR 09/23 AR Intake Note: Chauncey 33 yr old male presents today for his PO visit for his right CTR 09/23 AR. States symptoms have improved and is doing well. Sutures removed and steri strips applied. Allergies No Known Allergies Allergy (Verified 10/09/23 09:25) HPI PO Rt CTR 09/23 AR HPI Details Chauncey is a 33 year old right hand dominant man who presents S/P right arpal tunnel release, DOS: 09/24/23. He says he is doing well and his sensation has improved. He has good resolution of his nighttime symptoms and is happy with the results of his surgery He has a hx of a left carpal tunnel release, DOS: 06/14/23, with normal sensation. 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 [facility] Medical History Obesity (BMI 30-39.9) Allergic rhinitis Headache Overweight (BMI 25.0-29.9) History of meconium aspiration Depression Anxiety Low back pain Chronic pain of right knee Surgical History Hx of esophagogastroduodenoscopy History of carpal tunnel surgery of left wrist History of arthroscopy of right knee (~06/25/13) Family History Father Diabetes Stroke Hypertension Mother Diabetes Social History Housing: Apartment Alcohol intake: current Alcohol intake frequency: holidays/special occasions only Patient Tobacco Use Status: Never used Tobacco e-Cigarette/Vaping Use: Never Used Second Hand Smoke Exposure: Yes service: No Current occupational status: employed 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 Sutures removed and Steri-Strips applied He can make a fist and extend all his digits Sensation is intact Cap refill is brisk Nerve Conduction study: IMPRESSION: 1. Moderately severe bilateral median neuropathy across carpal tunnel. 2. Mild left ulnar neuropathy across cubital tunnel. Razia Hansen MD 02/22/2023 Psych Appearance: grossly normal Affect: normal affect Attitude: cooperative Assessment & Plan Assessment & Plan (1) Carpal tunnel syndrome of right wrist: Code(s): G56.01 - Carpal tunnel syndrome, right upper limb (2) Cubital tunnel syndrome on left: Code(s): G56.22 - Lesion of ulnar nerve, left upper limb Plan Assessment & Plan: 1. Right carpal tunnel syndrome, S/P release DOS: 09/24/23 Pre-operative symptoms intermittent, but daily, worse at night Now with normal sensation and good resolution of his nighttime symptoms The patient appears to be doing well post-operatively I educated him about the post-operative course I explained the signs and symptoms of infection, if the patient develops any new or worsening erythema, drainage, pain, or warmth they should contact the clinic or attend the ED. 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 Left carpal tunnel syndrome, S/P release DOS: 06/14/23 With normal sensation and good resolution of symptoms. 3. Left cubital tunnel syndrome, mild No complaints of numbness and tingling Scribed for Ernestine Lake MD by Mitch Barillas, medical records director, on 10/09/23 at 9:30 AM, EST. Coding Level of Care Code Global (95916) Diagnoses Carpal tunnel syndrome of right wrist G56.01 Cubital tunnel syndrome on left G56.22
== END 2023-10-09 09:39 | disposition home or self-care (01) ==
PROVIDERS: PCP Internal Medicine; Visit Provider Orthopaedic Surgery
DX: G56.01 Carpal tunnel syndrome, right upper limb (principal); G56.22 Lesion of ulnar nerve, left upper limb
CPT/HCPCS: 99024

== ENCOUNTER → 2023-10-09 09:18 | Outpatient (BNVA) | payer OTHER, SELFPAY | PROVIDERS: PCP Internal Medicine; Visit Provider Orthopaedic Surgery | DX: G56.22 Lesion of ulnar nerve, left upper limb (principal); Z48.811 Encounter for surgical aftercare following surgery on the nervous system; Z86.69 Personal history of other diseases of the nervous system and sense organs | CPT/HCPCS: 99212 ==

== ENCOUNTER 2023-11-28 11:27 | Outpatient (REF) | payer OTHER, SELFPAY ==
--- NOTE | ~2023-11-28 | XR_ITS ---
EXAMINATION: Right wrist series CLINICAL INFORMATION: Pain in the right wrist COMPARISON: None. TECHNIQUE: 3 views of the right wrist FINDINGS: The bones joints and soft tissues are normal. No fracture or degenerative change. XR/XR wrist RT w scaphoid IMPRESSION: Unremarkable examination.
== END 2023-11-28 11:28 | disposition home or self-care (01) ==
LOC: HO.HOSX 11:27
PROVIDERS: PCP Internal Medicine; Visit Provider Orthopaedic Surgery
DX: M25.531 Pain in right wrist (principal)
CPT/HCPCS: 73110; 99212

== ENCOUNTER 2023-11-28 11:27 | Outpatient (AMB) | payer OTHER, SELFPAY ==
--- NOTE | 2023-11-28 11:41 | MHC.OFFVIS ---
Vital Signs 11/28/23 11:42 Height 5 ft 6 in Weight 209 lb BMI 33.7 Intake Visit Reasons: PO Rt CTR 09/23 AR Intake Note: Chauncey 33 yr old male presents today for a wound check for his S/P right CTR from 09/24/23. States he is limited ROM on his wrist, his hand shakes, has pain and swelling as of 2 weeks ago. Allergies No Known Allergies Allergy (Verified 11/28/23 11:45) HPI HPI PO Rt CTR 09/23 AR: Details: Chauncey Agneles is a 33 year old right hand dominant man who is seen today complaining of new onset pain 2 weeks ago over the volar base of his right wrist. He denies any kind of fall or injury. 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 He is S/P right carpal tunnel release, DOS: 09/24/23. He says his sensation has returned to normal and is doing well. He reports having limited ROM in his wrist secondary to pain. He reports having a shaky hand. He states on Sunday11/17/2023 he woke up with pain in the base of his right palm.. Then the next day he had some swelling. He denies any recent falls. He uses of Ibuprofen to help with inflammation. He has a hx of a left carpal tunnel release, DOS: 06/14/23, with normal sensation. 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 [facility] Medical History (Updated 11/28/23 @ 12:52 by Ernestine Lake MD) Obesity (BMI 30-39.9) Allergic rhinitis Headache Overweight (BMI 25.0-29.9) History of meconium aspiration Depression Anxiety Low back pain Chronic pain of right knee Surgical History Hx of esophagogastroduodenoscopy History of carpal tunnel surgery of left wrist History of arthroscopy of right knee (~06/25/13) Family History Father Diabetes Stroke Hypertension Mother Diabetes Social History Housing: Apartment Alcohol intake: current Alcohol intake frequency: holidays/special occasions only Patient Tobacco Use Status: Never used Tobacco e-Cigarette/Vaping Use: Never Used Second Hand Smoke Exposure: Yes service: No Current occupational status: employed 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 Current occupational exposures/hazards: No Cognitive needs: No Hearing needs: No Vision needs: Yes (glasses) Review of Systems Const All systems reviewed & are unremarkable except as noted in HPI and below Physical Exam Vital Signs: BMI result Body Mass Index 33.7 Const General: cooperative, healthy appearing and no acute distress Orientation/consciousness: patient oriented x3 HEENT Head: Yes normocephalic and Yes atraumatic Eyes EOM: EOMs intact bilaterally Resp Effort & Inspection: normal respiratory effort and able to speak in complete sentences Cardio Jugular venous distension: no JVD Skin General skin exam: turgor normal Rashes: no rashes Neuro General: patient oriented x3 Extrem Other: Evaluation of Right Upper Extremity: Patient was alert oriented and in no acute distress His surgical incision is well healed with no erythema drainage or evidence of infection. He can make a fist and extend all of his digits. He is most tender over the scaphoid tubercle with mild snuffbox tenderness No tenderness directly over the hook of the hamate or really over the surgical incision. No pain with resisted flexion of the fingers. Neuro: Median, ulnar, radial nerves motor and sensory intact. Vascular: Cap refill brisk. Radiographs: three views of the right wrist with scaphoid views were taken today and reviewed by me in clinic. He has no fractures or dislocations. Assessment & Plan Assessment & Plan (1) Right wrist pain: Code(s): M25.531 - Pain in right wrist Category: Medical Plan Assessment & Plan: 1. Right palmar wrist pain Most tender over the distal aspect of the FCR tendon and where it passes over the scaphoid tubercle No known injury Pain began around 11/14/2023 Etiology unclear, possible strain of the FCR tendon I educated him about this problem We fitted him with a Velcro wrist splint to wear with daytime activities. I did encourage him to continue working on range of motion so he does not get stiff. 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 I therefore gave him a 15 lb weight limit for the next 3 weeks. Follow-up in 3 weeks to re-evaluate him and see how he is doing. 2. Right carpal tunnel syndrome, S/P release DOS: 09/24/23 This has gone on to do well and he has normal sensation 3. Left carpal tunnel syndrome, S/P release DOS: 06/14/23 With normal sensation and good resolution of symptoms. 4. Left cubital tunnel syndrome, mild No complaints of numbness and tingling Orders: Orders XR wrist RT w scaphoid Today M25.531 - Pain in right wrist Patient Instructions: Scribed by Deana Fraire, remote medical coder, for Dr. Ernestine Lake on 11/28/2023 at 11:57 am, EST. Scribe Plan - Not visible on output: Scribed for Ernestine Lake MD by Mitch Barillas remote medical coder, on [ ] at [ ], EST. Coding Level of Care Code Est Pt Level 3 (51365) Diagnoses Right wrist pain M25.531
[2023-11-28 11:42] VITALS: BMI 33.7
== END 2023-11-28 12:42 | disposition home or self-care (01) ==
PROVIDERS: PCP Internal Medicine; Visit Provider Orthopaedic Surgery
DX: G56.03 Carpal tunnel syndrome, bilateral upper limbs (principal)
CPT/HCPCS: 99024

== ENCOUNTER 2023-12-19 09:46 | Outpatient (AMB) | payer OTHER, SELFPAY ==
[2023-12-19 09:57] VITALS: BMI 33.7
--- NOTE | 2023-12-19 09:57 | MHC.OFFVIS ---
Vital Signs 12/19/23 09:57 Height 5 ft 6 in Weight 209 lb BMI 33.7 Intake Visit Reasons: PO Rt CTR 09/23 AR- Intake Note: Chauncey 33 yr old male presents today for a wound and ROM check for his S/P right CTR 09/24/23. Patient reports that he is dong well with no concerns. Currently he was given a RTW with a lifting limit of 15lbs, he works as a labor and delivery registered nurse for [employer] and feels that he is ready to return full [facility] duty. Allergies No Known Allergies Allergy (Verified 12/19/23 10:00) HPI HPI PO Rt CTR 09/23 AR-: Details: Chauncey is a 33 year old right hand dominant man who is S/P right carpal tunnel release, DOS: 09/24/23. He says his sensation has returned to normal and is doing well. He says his swelling has resolved, his pain has resolved, and he has no complaints today He has a hx of a left carpal tunnel release, DOS: 06/14/23, with normal sensation. He says he currently works as an [employer] labor and delivery registered nurse. He has been working with a 15lb weight limit, but feels ready to return to full duty [facility] Medical History (Updated 11/28/23 @ 12:52 by Ernestine Lake MD) Obesity (BMI 30-39.9) Allergic rhinitis Headache Overweight (BMI 25.0-29.9) History of meconium aspiration Depression Anxiety Low back pain Chronic pain of right knee Surgical History Hx of esophagogastroduodenoscopy History of carpal tunnel surgery of left wrist History of arthroscopy of right knee (~06/25/13) Family History Father Diabetes Stroke Hypertension Mother Diabetes Social History Housing: Apartment Alcohol intake: current Alcohol intake frequency: holidays/special occasions only Patient Tobacco Use Status: Never used Tobacco e-Cigarette/Vaping Use: Never Used Second Hand Smoke Exposure: Yes service: No Current occupational status: employed 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 Current occupational exposures/hazards: No Cognitive needs: No Hearing needs: No Vision needs: Yes (glasses) Review of Systems Const All systems reviewed & are unremarkable except as noted in HPI and below Physical Exam Vital Signs: BMI result Body Mass Index 33.7 Const General: no acute distress and alert Orientation/consciousness: patient oriented x3 Neuro General: patient oriented x3 Extrem Other: Evaluation of Right Upper Extremity: The patient is alert, oriented, and in no acute distress Neuro: Median, Ulnar, Radial nerves motor and sensory intact and sensation is normal to the tips of all digits Vascular: Cap refill brisk ROM: He can make a fist and extend all of his digits. Full & symmetrical wrist ROM No tenderness over FCR or FCU tendons. No tenderness over the scaphoid tubercle or snuffbox No tenderness directly over the hook of the hamate or really over the surgical incision. No pain with resisted flexion of the fingers. No swelling Psych Appearance: grossly normal Affect: normal affect Attitude: cooperative Assessment & Plan Assessment & Plan (1) Right wrist pain: Code(s): M25.531 - Pain in right wrist Category: Medical Plan Assessment & Plan: 1. Right volar wrist pain No known injury Pain began around 11/14/23 This has resolved and he no longer has any pain or swelling With regards to work, he feels he is able to return to full duty as an [employer] labor and delivery registered nurse. He was given a note to return to work on fully duty, without restrictions, on 12/23/23. Follow-up prn 2. Right carpal tunnel syndrome, S/P release DOS: 09/24/23 This has gone on to do well and he has normal sensation 3. Left carpal tunnel syndrome, S/P release DOS: 06/14/23 With normal sensation and good resolution of symptoms. 4. Left cubital tunnel syndrome, mild No complaints of numbness and tingling Scribed for Ernestine Lake MD by Mitch Barillas, family practice medical doctor, on 12/19/23 at 10:15 AM, EST. Coding Level of Care Code Est Pt Level 3 (94486) Diagnoses Right wrist pain M25.531
== END 2023-12-19 10:26 | disposition home or self-care (01) ==
PROVIDERS: PCP Internal Medicine; Visit Provider Orthopaedic Surgery
DX: M25.531 Pain in right wrist (principal); G56.01 Carpal tunnel syndrome, right upper limb
CPT/HCPCS: 99024

== ENCOUNTER → 2023-12-19 09:46 | Outpatient (BNVA) | payer OTHER, SELFPAY | PROVIDERS: PCP Internal Medicine; Visit Provider Orthopaedic Surgery | DX: Z47.89 Encounter for other orthopedic aftercare (principal); M25.531 Pain in right wrist | CPT/HCPCS: 99212 ==

== ENCOUNTER 2024-01-18 10:03 | Outpatient (AMB) | payer OTHER, SELFPAY ==
[2024-01-18 10:10] VITALS: BP 144/90; O2SAT 98; BMI 34.4
--- NOTE | 2024-01-18 10:10 | A.OFFPC_ITS ---
Vital Signs 01/18/24 10:10 Height 5 ft 6 in Weight 213 lb BMI 34.4 BP 144/90 H Blood Pressure Location Lt brachial Position Sitting Pulse Source Pulse Oximeter Pulse Oximetry (%) 98 Oxygen Delivery Method Room Air Intake Visit Reasons: annual PE [place] Required: No Patient Access Associate: Not Required per policy Accompanied by: Self / Same As Patient Allergies No Known Allergies Allergy (Verified 01/18/24 10:37) Medication List - Last Reconciled 01/18/24 by Sampson Arreola MD No Known Home Meds Tobacco use date assessed: 01/18/24 Dental Screening Dental Screen Date: 01/18/24 Did you have a dental visit in the last 12 months?: Yes Did you have a dental problem in the last 6 months where you did not have access to dental care?: No Was dental information given to patient?: Patient has dentist HPI annual PE HPI Details Patient comes in today for his annual physical examination States that he feels okay Denies any headaches or dizziness Denies any chest pains, no SOB No nausea/vomiting, no abdominal pain No change in bowel habits noted He denies any acute urinary symptoms [facility] Medical History (Updated 01/18/24 @ 10:56 by Sampson Arreola MD) Carpal tunnel syndrome, bilateral Pure hypercholesterolemia Obesity (BMI 30-39.9) Allergic rhinitis Headache History of meconium aspiration Depression Anxiety Low back pain Chronic pain of right knee Surgical History (Updated 01/18/24 @ 10:55 by Sampson Arreola MD) History of carpal tunnel surgery of right wrist Hx of esophagogastroduodenoscopy History of carpal tunnel surgery of left wrist History of arthroscopy of right knee (~06/25/13) Family History Father Diabetes Stroke Hypertension Mother Diabetes Social History Housing: Apartment Alcohol intake: current Alcohol intake frequency: holidays/special occasions only Patient Tobacco Use Status: Never used Tobacco e-Cigarette/Vaping Use: Never Used Second Hand Smoke Exposure: Yes service: No Current occupational status: employed 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 1. Little interest or pleasure in doing things: not at all 2. Feeling down, depressed, or hopeless: not at all 3. Trouble falling or staying asleep, or sleeping too much: not at all 4. Feeling tired or having little energy: not at all 5. Poor appetite or overeating: not at all 6. Feeling bad about yourself - or that you are a failure or have let yourself or your family down: not at all 7. Trouble concentrating on things, such as reading the newspaper or watching television: not at all 8. Moving or speaking so slowly that other people could have noticed. Or the opposite - being so fidgety or restless that you have been moving around a lot more than usual: not at all 9. Thoughts that you would be better off or of hurting yourself in some way: not at all Total score: 0 Depression Screening Interpretation: Negative Depression Screening Done: Yes 96405 - PHQ-9 Billing: Yes Source: Developed by Drs. Flaquito Braswell, Kerry Burns, Fabian Gupta and colleagues, with an educational yessica from [employer]. Thrive Questionnaire Date Thrive assessed: 01/18/24 I am a: Patient What is your living situation today?: I have a steady place to live Within the past 12 months, did the food you bought not last and you didn't have the money to get more?: Never true Within the past 12 months, did you worry whether your food would run out before you got money to buy more?: Never true Do you have trouble paying for medicines?: No Do you have trouble getting transportation to medical appointments?: No Do you have trouble paying your heating and electricity bill?: No Do you have trouble taking care of your child, family member or friend?: No Do you have trouble with day-to-day activities such as bathing, preparing meals, shopping, managing finances, etc.?: No Are you currently unemployed and looking for a job?: No Are you interested in more education?: No Please select the resources that you would like help with: None Currently or been in a relationship where the following occur: No concerns reported THRIVE Score: 0 AUDIT C Alcohol Use Questionnaire (AUDIT-C) 1. How often do you have a drink containing alcohol?: Monthly or less 2. How many drinks containing alcohol do you have on a typical day when you are drinking?: 1 or 2 3. How often do you have six or more drinks on one occasion?: Never Total Score: 1 Score Reviewed/Action Taken: Yes KAUSHAL-7 AMB Questionnaire KAUSHAL-7 Date KAUSHAL - 7 assessed: 01/18/24 Feeling nervous, anxious, or on edge: 0 = Not at all Not being able to stop or control worryin = Not at all Worrying too much about different things: 0 = Not at all Trouble relaxin = Not at all Being so restless that it is hard to sit still: 0 = Not at all Becoming easily annoyed or irritable: 0 = Not at all Feeling afraid as if something awful might happen: 0 = Not at all Total KAUSHAL-7 score (0-4 normal; 5-9 mild; 10-14 moderate; 15-21 severe): 0 Source: Developed by Drs. Flaquito Braswell, Kerry Burns, Fabian Gupta and colleagues, with an educational yessica from [employer]. Review of Systems Const Denies chills, Denies fatigue, Denies fever(s), Denies headache(s), Denies malaise and Denies weakness Eyes Denies blurry vision, Denies change in vision, Denies irritation and Denies itchy eyes ENT Denies dysphagia, Denies dizziness, Denies otalgia, Denies headache(s), Denies nasal congestion, Denies neck pain, Denies odynophagia and Denies sore throat Card Denies chest pain, Denies rapid heart rate, Denies irregular heart rhythm, Denies palpitations and Denies dyspnea Resp Denies chest congestion, Denies cough, Denies dyspnea and Denies wheezing GI Denies abdominal pain, Denies bloating, Denies constipation, Denies dysphagia, Denies heartburn, Denies diarrhea, Denies nausea, Denies odynophagia and Denies vomiting Denies hematuria, Denies difficulty urinating, Denies dysuria, Denies urinary frequency and Denies urinary urgency Musc Denies back pain, Denies arthralgias, Denies joint swelling, Denies muscle weakness and Denies neck pain Skin/Breast Denies change in pigmentation, Denies lesions, Denies rash and Denies unusual bruising Neuro Denies dizziness, Denies headache(s), Denies paresthesias and Denies weakness Endo Denies fatigue and Denies palpitations Aller/Immun Denies itchy eyes and Denies wheezing Physical exam (Primary Care) Vital Signs: Last Vital Signs BP 144/90 H 01/18/24 10:10 Pulse Ox 98 01/18/24 10:10 Oxygen Delivery Method Room Air 01/18/24 10:10 BMI result Body Mass Index 34.4 Tobacco/Smoking Status: Tobacco use Status Tobacco use date assessed 01/18/24 01/18/24 10:11 Patient Tobacco Use Status Never used Tobacco 01/18/24 10:11 e-Cigarette/Vaping Use Never Used 01/18/24 10:11 PHQ-9: PHQ-9 Score PHQ-9: Total score 0 01/18/24 10:11 Depression Screening Interpretation: Negative Thrive Assessment: Date of Thrive Assessment Date Thrive assessed 01/18/24 01/18/24 10:11 Currently or been in a relationship where the following occur: No concerns reported Const General: no acute distress, alert and awake Orientation/consciousness: patient oriented x3 HENMT Head: Yes normocephalic and Yes atraumatic Ears: external ears normal, TM's normal bilaterally and EAC's normal General nose exam: No nasal discharge present Face and sinus: Yes normal facial exam and Yes sinuses nontender Teeth and gingiva: dentition normal Throat: Yes posterior oropharynx normal and Yes tonsils normal (no TP congestion) Eyes Eyelids: Yes eyelids normal Conjunctivae: conjunctivae normal Pupils: Equal, round and reactive pupils present EOM: EOMs intact bilaterally Neck Neck: Yes no lymphadenopathy and Yes supple Thyroid: Thyroid normal Resp Auscultation: clear to auscultation bilaterally, no rales and no wheezes Cardio Rate: regular rate Rhythm: regular rhythm Heart sounds: no murmurs GI Palpation (GI): Soft to palpation, nontender and No hepatosplenomegaly present Auscultation: normal bowel sounds General: Yes no CVA tenderness Back/Spine/Pelvis Back: no CVA tenderness Thoracic/Lumbar Spine: thoracic and lumbar spine normal to inspection Skin Lesions: no lesions Rashes: no rashes Neuro General: patient oriented x3, moves all extremities, no focal motor deficits and CN's II-XI intact bilaterally Cranial nerves: Yes Equal, round and reactive pupils present Cognition (Neuro): normal cognition Gait exam (Neuro): Normal gait present Extrem General: Yes no clubbing, cyanosis or edema Assessment and Plan Assessment & Plan (1) Annual physical exam: Code(s): Z00.00 - Encounter for general adult medical examination without abnormal f indings Plan: Check labs (2) Pure hypercholesterolemia: Code(s): E78.00 - Pure hypercholesterolemia, unspecified Plan: Reinforced low cholesterol diet He is reminded that his cholesterol numbers were still elevated and were slightly higher than the year before Have advised him that considering his family history, he should work on trying to get these controlled better as soon as possible and if diet modification alone is not enough, we may have to start him on Rx to help him get these controlled better Will have him get his labs, including his fasting lipids, rechecked VIDAL Will also have him recheck his labs and fasting lipids in 6 months BEFORE he returns for his next follow up appointment (3) Migraine: Code(s): G43.909 - Migraine, unspecified, not intractable, without status migrainosus Qualifiers: Migraine type: without aura Status migrainosus presence: without status migrainosus Intractability: not intractable Qualified Code(s): G43.009 - Migraine without aura, not intractable, without status migrainosus Plan: States that his headaches have been well-controlled for a while now and he has not had to take any Rx regularly lately Is currently just taking OTC Tylenol or Ibuprofen PRN (4) Allergic rhinitis: Code(s): J30.9 - Allergic rhinitis, unspecified Qualifiers: Allergic rhinitis trigger: unspecified Allergic rhinitis seasonality: unspecified Qualified Code(s): J30.9 - Allergic rhinitis, unspecified Plan: He takes OTC Loratadine 10 mg QD PRN and/or Fluticasone 50 mcg nasal spray QD PRN (5) Carpal tunnel syndrome, bilateral: Comment: s/p carpal tunnel surgery (left wrist - 05/2023; right wrist - 09/2023) Code(s): G56.03 - Carpal tunnel syndrome, bilateral upper limbs Plan: EMG & NCV done back in 02/2023 revealed (+) moderately severe bilateral median neuropathy across carpal tunnel and mild left ulnar neuropathy across cubital tunnel His wrist and hand symptoms have improved significantly with his carpal tunnel s urgeries done over the past year (had left CTS surgery in 05/2023 and right CTS surgery in 09/2023) Follow up with orthopedics as scheduled or as needed (6) Obesity (BMI 30-39.9): Code(s): E66.9 - Obesity, unspecified Plan: Reinforced diet/exercise as tolerated/lose weight Plan Follow up in 6 months Orders: Orders Comprehensive [place]. Panel Fast Today E78.00 - Pure hypercholesterolemia, unspecified, Z00.00 - Encounter for general adult medical examination without abnormal findings Lipid Panel Today E78.00 - Pure hypercholesterolemia, unspecified, Z00.00 - Encounter for general adult medical examination without abnormal findings TSH reflex Free T4 Today E78.00 - Pure hypercholesterolemia, unspecified, Z00.00 - Encounter for general adult medical examination without abnormal findings Vitamin D 25-OH Total Today E55.9 - Vitamin D deficiency, unspecified, Z00.00 - Encounter for general adult medical examination without abnormal findings Lipid Panel 6 Months E78.00 - Pure hypercholesterolemia, unspecified Hemoglobin A1c Today R73.9 - Hyperglycemia, unspecified, Z00.00 - Encounter for general adult medical examination without abnormal findings Complete Blood Count Auto Diff Today D64.9 - Anemia, unspecified, Z00.00 - Encounter for general adult medical examination without abnormal findings UA CC w/rflx Micro + Cult Today R30.0 - Dysuria, Z00.00 - Encounter for general adult medical examination without abnormal findings Comprehensive [place]ruff. Panel Fast 6 Months E78.00 - Pure hypercholesterolemia, uns pecified Coding Level of Care Code Est Pt Prev Care 18-39y(52884) Diagnoses Annual physical exam Z00.00 Pure hypercholesterolemia E78.00 Migraine without aura and without status migrainosus, not intractable G43.009 Migraine type: without aura Status migrainosus presence: without status migrainosus Intractability: not intractable Allergic rhinitis, unspecified seasonality, unspecified trigger J30.9 Allergic rhinitis trigger: unspecified Allergic rhinitis seasonality: unspecified Carpal tunnel syndrome, bilateral G56.03 Obesity (BMI 30-39.9) E66.9
== END 2024-01-18 10:50 | disposition home or self-care (01) ==
PROVIDERS: PCP Internal Medicine; Visit Provider Internal Medicine
DX: Z00.00 Encounter for general adult medical examination without abnormal findings (principal); E78.00 Pure hypercholesterolemia, unspecified; G43.009 Migraine without aura, not intractable, without status migrainosus; J30.9 Allergic rhinitis, unspecified; G56.03 Carpal tunnel syndrome, bilateral upper limbs; E66.9 Obesity, unspecified
CPT/HCPCS: 99395

== ENCOUNTER 2024-01-18 11:02 | Outpatient (REF) | payer OTHER, SELFPAY ==
[2024-01-18 11:14] LABS: MANUAL DIFF FLAG NO
[2024-01-18 11:54] LABS: Basophils Absolute Auto 0.1 X10*3/uL (0.0-0.2); Basophils Percent Auto 1.1 % (0-2); Eosinophils Absolute Auto 0.3 X10*3/uL (0.0-0.4); Eosinophils Percent Auto 4.6 % (0-4); Hematocrit 43.2 % (42.0-52.0); Imm Gran Abs Auto 0.04 X10*3/uL (0.00-0.03); Imm Gran Pct Auto 0.7 % (0.0-0.4); Lymphocytes Absolute Auto 1.8 X10*3/uL (1.2-4.9); Lymphocytes Percent Auto 33.6 % (20-40); Mean Corpuscular HGB Conc 34.7 g/dl (31.0-36.0); Mean Corpuscular Hemoglobin 30.7 pg (27.0-33.0); Mean Corpuscular Volume 88.5 fL (80.0-98.0); Mean Platelet Volume 9.6 fL (9.4-12.4); Monocytes Absolute Auto 0.4 X10*3/uL (0.1-1.2); Monocytes Percent Auto 7.9 % (2-11); Neutrophils Absolute Auto 2.8 x10*3/uL (2.0-8.3); Neutrophils Percent Auto 52.1 % (45-73); Platelet Count 301 X10*3/uL (160-400); Red Blood Count 4.88 X10*6/uL (4.60-5.80); Red Cell Distribution Width 12.4 % (11.0-16.0); White Blood Count 5.4 X10*3/uL (4.8-10.8)
[2024-01-18 12:00] LABS: Estimated Average Glucose 103 mg/dL; Hemoglobin A1c % 5.2 % (<6.0)
[2024-01-18 12:18] LABS: Alanine Aminotransferase 26 U/L (0-40); Albumin Level 4.6 g/dL (3.5-5.0); Alkaline Phosphatase 55 U/L (39-117); Anion Gap 11 (12-20); Aspartate Amino Transferase 20 U/L (5-37); Bilirubin Total 0.4 mg/dL (0.0-1.0); Blood Urea Nitrogen 16 mg/dL (9-16); Calcium 9.4 mg/dL (8.4-10.2); Carbon Dioxide 28 mmol/L (22-29); Chloride 106 mmol/L (96-108); Cholesterol 206 mg/dL (<200); Estimated Glomerular Filt Rate > 60; Glucose Fasting 88 mg/dL (60-99); HDL Cholesterol 56 mg/dL (>40); LDL Cholesterol Calculated 135 mg/dL (<100); Potassium 4.4 mmol/L (3.3-5.1); Sodium 141 mmol/L (135-145); Total Protein 7.6 g/dL (6.5-8.0); Triglycerides 76 mg/dL (<150)
[2024-01-18 12:40] LABS: TSH reflex Free T4 2.63 uIU/mL (0.32-4.0); Vitamin D 25-OH Total 27.7 ng/mL (>30)
[2024-01-18 14:02] LABS: Appearance Urine Turbid; Color Urine Dark Yellow; Glucose Urine UA Negative (Negative); Leukocyte Esterase Urine Negative (Negative); Nitrite Urine Negative (Negative); PH 5.5 (5.0-9.0); Specific Gravity - Urine >= 1.030 (1.005-1.025); UMIC TRIGGER UACC YES; Urine Blood Negative (Negative); Urine Ketones Trace mg/dL (Negative); Urine Protein 30 (1+) mg/dL (Neg-Trace)
[2024-01-18 14:14] LABS: Bacteria Urine None Seen (None Seen); Hyaline Casts Urine 0-2 /LPF (0-2); RBC Urine 0-2 /HPF (0-2); Squamous Epithelial Cell Urine 0-2 /HPF (0-2); WBC Urine 0-5 /HPF (0-5)
== END 2024-01-18 11:03 | disposition home or self-care (01) ==
LOC: HO.LAB 11:02
PROVIDERS: PCP Internal Medicine; Visit Provider Internal Medicine
DX: Z00.00 Encounter for general adult medical examination without abnormal findings (principal); R30.0 Dysuria; E55.9 Vitamin D deficiency, unspecified; E78.00 Pure hypercholesterolemia, unspecified; R73.9 Hyperglycemia, unspecified; D64.9 Anemia, unspecified
CPT/HCPCS: 36415; 80053; 80061; 81001; 81003; 82306; 83036; 84443; 85025

== ENCOUNTER 2024-02-04 15:53 | Emergency (ER) | payer OTHER, SELFPAY ==
[2024-02-04 16:10] VITALS: BP 129/88; PULSE 78; RESP 20; TEMP 36.1; O2SAT 98; BMI 32.8
--- NOTE | 2024-02-04 16:11 | ED_ITS ---
HPI - General Adult General Chief complaint: General Medical Stated complaint: bee sting in rib and arm, unsure if allergic Time Seen by Provider: 02/04/24 16:21 Source: patient and RN notes reviewed Mode of arrival: ambulatory Limitations: no limitations History of Present Illness ED Provider: Heather Good PA-C HPI narrative: This is a 33-year-old male who presents emergency department after being stung by what he thought was a be. 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 He states that this was a type of bee or hornet. He denies any difficulty breathing, swallowing. He has not take any medications prior to his arrival. No other complaints or concerns at this time. MD complaint: Bee sting Relieving factors: none Exacerbating factors: none Associated symptoms: denies other symptoms Treatments prior to arrival: none Related Data Home Medications ?Medication ?Instructions ?Recorded ?Confirmed No Known Home Meds 01/18/24 01/18/24 Allergies Allergy/AdvReac Type Severity Reaction Status Date / Time No Known Allergies Allergy Verified 02/04/24 16:14 Review of Systems Review of Systems: Yes all other systems are reviewed and are negative Constitutional: Constitutional: Reports as per HPI [facility] Past Medical History Medical History (Updated 02/04/24 @ 16:19 by JAMIE Echevarria) Carpal tunnel syndrome, bilateral Pure hypercholesterolemia Obesity (BMI 30-39.9) Allergic rhinitis Headache History of meconium aspiration Depression Anxiety Low back pain Chronic pain of right knee Surgical History (Updated 01/18/24 @ 10:55 by Sampson Arreola MD) History of carpal tunnel surgery of right wrist Hx of esophagogastroduodenoscopy History of carpal tunnel surgery of left wrist History of arthroscopy of right knee (~06/25/13) Family History Family History Father Diabetes Stroke Hypertension Mother Diabetes Social History Social History Housing: Apartment Alcohol intake: current Alcohol intake frequency: holidays/special occasions only Patient Tobacco Use Status: Never used Tobacco e-Cigarette/Vaping Use: Never Used Second Hand Smoke Exposure: Yes Advance Directives: No Advance Directives Information Provided: No Do you have a plan to hurt others: No Plan service: No Current occupational status: employed Current occupation: [employer]- right hand dominant Current occupational exposures/hazards: No Cognitive needs: No Hearing needs: No Vision needs: Yes (glasses) Physical Exam ED Vital Signs: Vital Signs - 24 hr 02/04/24 16:10 02/04/24 16:22 Temperature 96.9 F 96.9 F Pulse Rate 78 78 Respiratory Rate 20 20 Blood Pressure 129/88 129/88 Pulse Oximetry 98 98 Oxygen Delivery Method Room Air Room Air BMI result Body Mass Index 32.8 Const General: cooperative, comfortable and no acute distress Orientation/consciousness: patient oriented x3 Limitations: no limitations HENMT Head: Yes normal to inspection, Yes normocephalic and Yes atraumatic Ears: hearing grossly normal bilaterally General nose exam: Normal external nose present Face and sinus: Yes normal facial exam Mouth: Normal oral and palatal mucosa present, oropharynx normal and moist mucous membranes Throat: Yes posterior oropharynx normal Eyes General: appearance normal, both eyes and all related structures Eyelids: Yes eyelids normal Conjunctivae: conjunctivae normal Sclerae: sclerae normal Pupils: Equal, round and reactive pupils present EOM: EOMs intact bilaterally Neck Neck: Yes normal visual inspection, Yes full ROM and Yes no lymphadenopathy Lymphatic: no lymphadenopathy noted Chest Chest palpation & inspection: normal inspection of the chest Resp Effort & Inspection: normal respiratory effort and able to speak in complete sentences Auscultation: clear to auscultation bilaterally, no crackles, no rales, no rhonchi and no wheezes Cardio Rate: regular rate Rhythm: regular rhythm Heart sounds: S1 normal heart sound present and S2 normal heart sound present GI Inspection: Yes normal to inspection Skin Other: Left lower abdomen, with insect bite noted, with tenderness palpation, no surrounding erythema or warmth. Left forearm, with tenderness to palpation, no surrounding erythema or warmth. General skin exam: no rashes or lesions noted Trauma: no lacerations or abrasions Wounds: no wounds Neuro General: patient oriented x3 and moves all extremities Cranial nerves: Yes Equal, round and reactive pupils present Extrem General: Yes normal to inspection Right upper extremity: normal to inspection Left upper extremity: normal to inspection Right lower extremity: normal to inspection Left lower extremity: normal to inspection Medical Decision Making Medical Decision Making MDM Narrative: This is a 33-year-old male who presents emergency department with complaints of bee stings. On arrival, lungs are clear to auscultation bilaterally, oropharynx is widely patent. He has no difficulty swallowing or breathing. He has pain surrounding insect stings however no surrounding erythema, warmth. Discussed findings with patient. Given that he has normal lung sounds, his vitals are stable, and he has no shortness a breath, will treat conservatively with pain medication, ice, also advised take Benadryl as needed. Given strict return precautions. He understands and agrees with plan. Patient stable for [facility]. Differential Diagnosis Differential Diagnoses: The differential diagnosis associated with the presentation includes Anaphylaxis-unlikely, insect bite, cellulitis Discharge Plan Discharge Clinical Impression: Bee sting Patient Disposition: Home, Self-Care Instructions: Insect Bite or Sting (ED) Additional Instructions: You were seen in the emergency department after being stung multiple times by a bee/wasp. You will likely be sore and have some redness and swelling to the areas. This is a normal reaction. However if you do experience significant swelling, difficulty breathing, swallowing, chest pain, those are reasons for you to seek emergent care. Applying ice to the area can be beneficial. Alternating between ibuprofen and Tylenol can be helpful. If any new or worsening symptoms occur including but not limited to the above symptoms, please seek emergent care. Prescriptions: No Action No Known Home Meds Interventions: ED Discharge Assessment Last Done: 02/04/24 16:22 Discharge Date/Time: 02/04/24 16:24 Print Language: Montserratian
[2024-02-04 16:22] VITALS: BP 129/88; PULSE 78; RESP 20; TEMP 36.1; O2SAT 98
== END 2024-02-04 16:24 | disposition home or self-care (01) ==
PROVIDERS: Emergency Provider Emergency Medicine; PCP Internal Medicine
DX: T63.441A Toxic effect of venom of bees, accidental (unintentional), initial encounter (principal); Y92.89 Other specified places as the place of occurrence of the external cause
CPT/HCPCS: 99282

== ENCOUNTER 2024-02-20 10:12 | Emergency (ER) | payer OTHER, SELFPAY ==
--- NOTE | ~2024-02-20 | XR_ITS ---
EXAMINATION: XR CHEST CLINICAL INFORMATION: Patient states pain in chest. COMPARISON: 08/29/2018 TECHNIQUE: 2 views of the chest were obtained. FINDINGS: Lung volumes are low. There is no gross pneumothorax. Cardiac silhouette appears borderline enlarged, possibly partially attributable to lower lung volumes on the current exam. No significant pleural effusion. No focal consolidation. Redemonstration of mild loss of height of adjacent lower thoracic vertebral bodies. Visualization is limited on the lateral view due to overlying arm. XR/XR chest 2V IMPRESSION: 1. Cardiac silhouette appears borderline enlarged, possibly partially attributable to lower lung volumes on the current exam. 2. No focal consolidation to suggest pneumonia. This study was presented today February 20, 2024 for interpretation. Stat results provided at this time as requested by referring provider.
--- NOTE | 2024-02-20 10:16 | ECG_ITS ---
Test Reason : CHEST PAIN Blood Pressure : / mmHG Vent. Rate : 058 BPM Atrial Rate : 058 BPM P-R Int : 128 ms QRS Dur : 090 ms QT Int : 372 ms P-R-T Axes : 026 017 020 degrees QTc Int : 365 ms Sinus bradycardia Otherwise normal ECG When compared with ECG of 02-FEB-2014 19:42, No significant change was found Referred By: Generic ED Physician Electronically Signed By:ANNAMARIA HUNTER MD
[2024-02-20 10:22] VITALS: BP 138/93; PULSE 65; RESP 18; TEMP 36.6; O2SAT 98; BMI 34.4
[2024-02-20 10:47] LABS: MANUAL DIFF FLAG NO
--- NOTE | 2024-02-20 10:48 | ED.CHESTPAIN ---
HPI - Chest Pain General Chief Complaint: Chest Pain Stated Complaint: CP, sob, facial tingling Time Seen by Provider: 02/20/24 10:48 Source: patient and family (patient's ) Mode of arrival: ambulatory Limitations: no limitations History of Present Illness ED Provider: Malia Rankin PA-C HPI narrative: 33 year old male with PMH of carpal tunnel of the wrists bilaterally, anxiety, and migraines presents to the ED today for chest pain and facial numbness/tingling. Patient states that he woke up having chest pain around 7:30am this morning and noticed that he was having numbness and tingling to the bottom half of his face as well as numbness and tingling down his right arm and left hand into the wrist slightly. He states that he feels the numbness and tingling from the elbow down to his wrists in the right arm, and that he feels tingling in his left hand (digits 2 and 5) up to his left wrist. Patient endorses being short of breath, lightheaded, dizzy, and fatigued. He denies any abdominal pain, nausea, vomiting, fever, diarrhea, headaches, difficulty walking, muscle pain or joint pain. He states that he has had episodes like this in the past, and that he had workups done on. He states they ran multiple tests, and could not find anything wrong with his heart. States that he was diagnosed with anxiety, and is wondering if this episode is from an anxiety attack. He is currently on no medications for anxiety. He had carpal tunnel release surgery on the left wrist in June of 2023. There is no history of trauma or injury. MD complaint: chest pain Onset (ago): hour(s) (3) Timing of current episode: constant Prior episodes: Yes Onset: awoke with symptoms Pain location: substernal Quality: tightness Relieving factors: nothing Exacerbating factors: inspiration Related Data Home Medications ?Medication ?Instructions ?Recorded ?Confirmed No Known Home Meds 01/18/24 01/18/24 Allergies Allergy/AdvReac Type Severity Reaction Status Date / Time No Known Allergies Allergy Verified 02/20/24 10:24 Review of Systems Review of Systems: Yes all other systems are reviewed and are negative Constitutional: Constitutional: Denies chills, Reports fatigue, Denies fever(s) and Denies night sweats Eyes: Eyes: Reports no additional eye complaints, Denies blurry vision, Denies change in vision, Denies diplopia, Denies eye discharge, Denies loss of vision and Denies eye pain ENT: Denies dizziness Cardiovascular: Cardiovascular: Reports no additional cardiovascular complaints, Reports chest pain, Reports chest pain at rest, Reports lightheadedness and Denies Loss of Consciousness Respiratory: Respiratory: Reports no additional respiratory complaints and Reports pain on inspiration Gastrointestinal: Gastrointestinal: Reports no additional gastrointestinal complaints, Denies abdominal pain, Denies melena, Denies hematochezia, Denies change in bowel habits and Denies change in stool character Genitourinary: Genitourinary: Reports no additional male genitourinary complaints, Denies hematuria, Denies oliguria, Denies difficulty urinating, Denies dysuria, Denies urinary frequency, Denies urinary hesitancy, Denies urinary incontinence and Denies urinary urgency Musculoskeletal: Musculoskeletal: Reports no additional musculoskeletal complaints, Denies numbness and Denies tingling Integumentary/Breasts: Skin/Breast: Reports system reviewed and no additional complaints, except as docu Neurologic: Denies dizziness, Denies loss of vision, Denies numbness and Denies tingling Psychiatric: Psychiatric: Reports no additional psychiatric complaints Endocrine: Endocrine: Reports no additional endocrine complaints and Reports fatigue Hematologic/Lymphatic: Hematologic/Lymphatic: Reports no additional hematologic/lymphatic complaints Allergic/Immunologic: Allergic/Immunologic: Reports no additional allergic/immunologic complaints [facility] Past Medical History Attestation statement: The following information was validated with the patient. Source: old records reviewed and nursing notes reviewed Medical History Carpal tunnel syndrome, bilateral Pure hypercholesterolemia Obesity (BMI 30-39.9) Allergic rhinitis Headache History of meconium aspiration Depression Anxiety Low back pain Chronic pain of right knee Surgical History History of carpal tunnel surgery of right wrist Hx of esophagogastroduodenoscopy History of carpal tunnel surgery of left wrist History of arthroscopy of right knee (~06/25/13) Family History Family History Father Diabetes Stroke Hypertension Mother Diabetes Social History Social History Housing: Apartment Alcohol intake: current Alcohol intake frequency: holidays/special occasions only Patient Tobacco Use Status: Never used Tobacco Smoked in Last 30 Days: No e-Cigarette/Vaping Use: Never Used Second Hand Smoke Exposure: Yes Use of substances other than those prescribed or required for medical reasons: No Advance Directives: No Do you have a plan to hurt others: No Plan service: No Current occupational status: employed 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 Current occupational exposures/hazards: No Cognitive needs: No Hearing needs: No Vision needs: Yes (glasses) Physical Exam Vital Signs: Vital Signs: Last Vital Signs Temp 98.3 F 02/20/24 13:11 Pulse 56 02/20/24 13:11 Resp 14 02/20/24 13:11 BP 118/71 02/20/24 13:11 Pulse Ox 94 02/20/24 13:11 O2 Del Method Room Air 02/20/24 13:11 BMI result Body Mass Index 34.4 Const: General: cooperative, alert, awake, in distress and tired appearing Nutritional Appearance: well nourished Orientation/consciousness: patient oriented x3 Limitations: no limitations HEENT: Head: Yes normal to inspection and Yes atraumatic Ears: hearing grossly normal bilaterally and external ears normal General nose exam: Normal external nose present, no nasal discharge noted and no epistaxis Face and sinus: Yes normal facial exam, No abrasion and No laceration Mouth: Normal oral and palatal mucosa present, no drooling and no muffled voice Eyes: General: appearance normal, both eyes and all related structures Periorbital: periorbital findings normal Eyelids: Yes eyelids normal Conjunctivae: conjunctivae normal Pupils: Equal, round and reactive pupils present EOM: EOMs intact bilaterally Neck: Neck: Yes normal visual inspection, Yes full ROM and Yes no lymphadenopathy Chest: Chest palpation & inspection: normal inspection of the chest Resp: Effort & Inspection: normal respiratory effort and able to speak in complete sentences Auscultation: clear to auscultation bilaterally Cardio: Jugular venous distension: no JVD Rate: regular rate Rhythm: regular rhythm Heart sounds: S1 normal heart sound present and S2 normal heart sound present GI: Inspection: Yes normal to inspection Auscultation: normal bowel sounds Skin: General skin exam: no rashes or lesions noted Lesions: no lesions Rashes: no rashes Trauma: no lacerations or abrasions Wounds: no wounds Hair: normal Nails: normal Neuro: General: patient oriented x3 and moves all extremities Cranial nerves: Yes Facial sensation intact/muscles of mastication intact, Yes Equal, round and reactive pupils present and Yes Ability to bilaterally rotate head present Cognition (Neuro): normal cognition Motor exam (neuro): 5/5 motor strength present throughout Sensory Exam: Normal double simultaneous stimulation for sensation Extrem: Other: Tinels sign is positive on right arm, elicits tingling sensation on right hand and up forearm. General: Yes normal to inspection, Yes full ROM and Yes capillary refill normal Right upper extremity: normal to inspection, full ROM and normal capillary refill Left upper extremity: normal to inspection, full ROM and normal capillary refill Psych: Appearance: grossly normal Mental Status: mental status grossly normal Affect: normal affect Attitude: cooperative Thought process: Normal thought process present Thought content: Normal thought content present Insight: Good insight present (Psych) Medications Administered Discontinued Medications Generic Name Dose Route Start Last Admin Trade Name Nelly PRN Reason Stop Dose Admin Lorazepam 1 mg 02/20/24 10:56 02/20/24 11:26 Lorazepam 1 Mg Tablet PO 02/20/24 10:57 1 mg ONCE ONE Administration Medical Decision Making Medical Decision Making [facility] Narrative: 33 year old male with PMH of carpal tunnel of the wrists bilaterally, anxiety, and migraines presents to the ED today for chest pain and facial numbness/tingling. Patient's blood work was unremarkable. Patient's chest x-ray showed no acute process. Patient's EKG was unremarkable. Patient was given PO ativan which helped his symptoms significantly. I reviewed all results with the patient and his as well as answered all of their questions. Patient's clinical presentation is most consistent with an anxious episode. Patient verbalized understanding and agreement with discharge. Differential Diagnosis Differential Diagnoses: The differential diagnosis associated with the presentation includes Anxiety attack, pneumonia, NSTEMI, STEMI Admission/Observation Consideration of admission/observation: Escalation of care including admission/observation considered Patient would have been admitted to the hospital had his work up had any findings where hospital admission was appropriate and his clinical presentation warranted hospital admission. Lab Data [facility] Lab Attestation statement: I reviewed the patient's lab results. My interpretation of these results are in the [facility] Rationale portion of this note. 02/20/24 10:41 02/20/24 10:41 Labs: Lab Results 02/20/24 Range/Units 10:41 WBC 5.9 (4.8-10.8) X10*3/uL RBC 4.71 (4.60-5.80) X10*6/uL Hgb 14.5 (14.0-18.0) g/dl Hct 41.3 L (42.0-52.0) % MCV 87.7 (80.0-98.0) fL MCH 30.8 (27.0-33.0) pg MCHC 35.1 (31.0-36.0) g/dl RDW 12.4 (11.0-16.0) % Plt Count 265 (160-400) X10*3/uL MPV 9.3 L (9.4-12.4) fL Immature Gran % (Auto) 0.3 (0.0-0.4) % Neut % (Auto) 52.3 (45-73) % Lymph % (Auto) 37.0 (20-40) % [place] % (Auto) 8.2 (2-11) % Eos % (Auto) 1.2 (0-4) % Baso % (Auto) 1.0 (0-2) % Lymph # (Auto) 2.2 (1.2-4.9) X10*3/uL [place] # (Auto) 0.5 (0.1-1.2) X10*3/uL Eos # (Auto) 0.1 (0.0-0.4) X10*3/uL Baso # (Auto) 0.1 (0.0-0.2) X10*3/uL Abs Immat Gran (auto) 0.02 (0.00-0.03) X10*3/uL Absolute Neuts (auto) 3.1 (2.0-8.3) x10*3/uL Absolute Nucleated RBC 0.000 (0.0-0.012) X10*3/uL Nucleated RBC % (auto) 0.0 (0.0-0.2) /100WBC Sodium 141 (135-145) mmol/L Potassium 4.0 (3.3-5.1) mmol/L Chloride 109 H (96-108) mmol/L Carbon Dioxide 24 (22-29) mmol/L Anion Gap 12 (12-20) BUN 14 (9-16) mg/dL Creatinine 0.92 (0.5-1.4) mg/dL Estim Creat Clear Calc 121.9 Estimated GFR > 60 Random Glucose 96 (60-115) mg/dL Calcium 9.6 (8.4-10.2) mg/dL Total Bilirubin 0.8 (0.0-1.0) mg/dL Direct Bilirubin 0.2 (0.0-0.5) mg/dL AST 20 (5-37) U/L ALT 28 (0-40) U/L Alkaline Phosphatase 48 (39-117) U/L Troponin I High Sens < 2.7 (<3.5-35.0) ng/L Total Protein 7.3 (6.5-8.0) g/dL Albumin 4.4 (3.5-5.0) g/dL Independent Interpretation I performed an independent interpretation of an: EKG and Plain X-Ray Interpretation: My interpretation is in agreement with the radiologist's impression of this imaging study. EXAMINATION: XR CHEST CLINICAL INFORMATION: Patient states pain in chest. COMPARISON: 08/29/2018 TECHNIQUE: 2 views of the chest were obtained. FINDINGS: Lung volumes are low. There is no gross pneumothorax. Cardiac silhouette appears borderline enlarged, possibly partially attributable to lower lung volumes on the current exam. No significant pleural effusion. No focal consolidation. Redemonstration of mild loss of height of adjacent lower thoracic vertebral bodies. Visualization is limited on the lateral view due to overlying arm. XR/XR chest 2V IMPRESSION: 1. Cardiac silhouette appears borderline enlarged, possibly partially attributable to lower lung volumes on the current exam. 2. No focal consolidation to suggest pneumonia. This study was presented today February 20, 2024 for interpretation. Stat results provided at this time as requested by referring provider. Dictated By: Sia Littlejohn MD Signed By: Electronically signed by Sia Littlejohn MD 02/20/24 1323 Vent. Rate: 058 BPM Atrial Rate: 058 BPM P-R Int: 128 ms QRS Dur: 090 ms QT Int: 372 ms P-R-T Axes: 026 017 020 degrees QTc Int: 365 ms Sinus bradycardia Otherwise normal ECG When compared with ECG of 02-FEB-2014 19:42, No significant change was found DD/ 1014 Radiology Impression Discussion of test interpretation with radiology: I have reviewed the radiologist's reading. Independent Historian Clinical information obtained from an independent historian. History obtained from or confirmed by: Spouse (patient's provided additional history and confirmed the history provided by the patient.) Discharge Plan Discharge Clinical Impression: Chest pain, Anxiety Patient Disposition: Home, Self-Care Instructions: Chest Pain (DC), Anxiety (ED) Additional Instructions: Follow up with your primary care provider. Return to the emergency department immediately if your symptoms worsen or if you develop any dizziness, shortness of breath, difficulty breathing, chest pain, blurry vision, loss of vision, nausea, vomiting, abdominal pain, fever, chills, back pain, or any other complaints. Prescriptions: No Action No Known Home Meds Referrals: Maxwell,Sampson S, MD [Primary Care Provider] - Stand Alone Forms: Work/School Release Interventions: ED Discharge Assessment Last Done: 02/20/24 13:11 Discharge Date/Time: 02/20/24 13:13 Print Language: Sammarinese
[2024-02-20 10:50] LABS: Basophils Absolute Auto 0.1 X10*3/uL (0.0-0.2); Eosinophils Absolute Auto 0.1 X10*3/uL (0.0-0.4); Eosinophils Percent Auto 1.2 % (0-4); Hematocrit 41.3 % (42.0-52.0); Hemoglobin 14.5 g/dl (14.0-18.0); Imm Gran Abs Auto 0.02 X10*3/uL (0.00-0.03); Imm Gran Pct Auto 0.3 % (0.0-0.4); Lymphocytes Absolute Auto 2.2 X10*3/uL (1.2-4.9); Mean Corpuscular HGB Conc 35.1 g/dl (31.0-36.0); Mean Corpuscular Hemoglobin 30.8 pg (27.0-33.0); Mean Corpuscular Volume 87.7 fL (80.0-98.0); Mean Platelet Volume 9.3 fL (9.4-12.4); Monocytes Absolute Auto 0.5 X10*3/uL (0.1-1.2); Monocytes Percent Auto 8.2 % (2-11); Neutrophils Absolute Auto 3.1 x10*3/uL (2.0-8.3); Neutrophils Percent Auto 52.3 % (45-73); Platelet Count 265 X10*3/uL (160-400); Red Blood Count 4.71 X10*6/uL (4.60-5.80); Red Cell Distribution Width 12.4 % (11.0-16.0); White Blood Count 5.9 X10*3/uL (4.8-10.8)
[2024-02-20 11:09] LABS: Anion Gap 12 (12-20); Blood Urea Nitrogen 14 mg/dL (9-16); Calcium 9.6 mg/dL (8.4-10.2); Carbon Dioxide 24 mmol/L (22-29); Chloride 109 mmol/L (96-108); Creatinine Clr Calc Pharmacy 121.9; Estimated Glomerular Filt Rate > 60; Glucose Random 96 mg/dL (60-115); Sodium 141 mmol/L (135-145)
[2024-02-20 11:18] LABS: Troponin-I High Sensitivity < 2.7 ng/L (<3.5-35.0)
[2024-02-20] MEDS: LORazepam 1 MG TABLET PO (11:26)
[2024-02-20 11:48] LABS: Alanine Aminotransferase 28 U/L (0-40); Albumin Level 4.4 g/dL (3.5-5.0); Alkaline Phosphatase 48 U/L (39-117); Aspartate Amino Transferase 20 U/L (5-37); Bilirubin Direct 0.2 mg/dL (0.0-0.5); Bilirubin Total 0.8 mg/dL (0.0-1.0); Total Protein 7.3 g/dL (6.5-8.0)
[2024-02-20 12:00] VITALS: BP 118/71; PULSE 56; RESP 14; TEMP 36.8; O2SAT 94
[2024-02-20 13:11] VITALS: BP 118/71; PULSE 56; RESP 14; TEMP 36.8; O2SAT 94
== END 2024-02-20 13:13 | disposition home or self-care (01) ==
PROVIDERS: Physician Assistant Medical; Emergency Provider Emergency Medicine; PCP Internal Medicine
DX: R07.89 Other chest pain (principal); F41.9 Anxiety disorder, unspecified; R00.1 Bradycardia, unspecified; Z79.899 Other long term (current) drug therapy
CPT/HCPCS: 36415; 71046; 80048; 80076; 84484; 85025; 93005; 99283; 99285

== ENCOUNTER → 2024-02-20 10:16 | Outpatient (BNV) | payer OTHER, SELFPAY | PROVIDERS: Emergency Provider Emergency Medicine; PCP Internal Medicine; Visit Provider Internal Medicine Cardiovascular Disease | DX: R07.9 Chest pain, unspecified (principal); R00.1 Bradycardia, unspecified | CPT/HCPCS: 93010 ==

== ENCOUNTER 2024-03-07 13:13 | Outpatient (AMB) | payer OTHER, SELFPAY ==
--- NOTE | 2024-03-07 13:26 | MHC.PC.OV ---
Vital Signs 03/07/24 13:43 Height 5 ft 6 in Weight 214 lb 4 oz BMI 34.6 BP 134/82 Blood Pressure Location Lt brachial Position Sitting Pulse 76 Pulse Source Pulse Oximeter Pulse Oximetry (%) 99 Intake Visit Reasons: [place] [facility] [place] Chest Pain Allergies No Known Allergies Allergy (Verified 02/20/24 10:24) Tobacco use date assessed: 01/18/24 Dental Screening Dental Screen Date: 01/18/24 HPI HPI Comments History of Present Illness Details 33 y/o male patient who presents to the clinic for EDF. Pt was admitted at [facility] [place]24 for Chest pain and facial numbness/tingling. He was discharged home the same with Diagnosis of Anxiety. Today Pt reports still experiencing the symptoms on/off. Denies any stress at home, but does admit to high stressful and high demanding Job ([employer]). [facility] Medical History Carpal tunnel syndrome, bilateral Pure hypercholesterolemia Obesity (BMI 30-39.9) Allergic rhinitis Headache History of meconium aspiration Depression Anxiety Low back pain Chronic pain of right knee Surgical History History of carpal tunnel surgery of right wrist Hx of esophagogastroduodenoscopy History of carpal tunnel surgery of left wrist History of arthroscopy of right knee (~06/25/13) Family History Father Diabetes Stroke Hypertension Mother Diabetes Social History Housing: Apartment Alcohol intake: current Alcohol intake frequency: holidays/special occasions only Patient Tobacco Use Status: Never used Tobacco e-Cigarette/Vaping Use: Never Used Second Hand Smoke Exposure: Yes service: No Current occupational status: employed 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 Flaquito Braswell, Kerry Burns, Fabian Gupta and colleagues, with an educational yessica from [employer]. Physical exam (Primary Care) Vital Signs: Last Vital Signs Pulse 76 03/07/24 13:43 BP 134/82 03/07/24 13:43 Pulse Ox 99 03/07/24 13:43 BMI result Body Mass Index 34.6 Tobacco/Smoking Status: Tobacco use Status Tobacco use date assessed 01/18/24 03/07/24 13:27 Patient Tobacco Use Status Never used Tobacco 03/07/24 13:27 e-Cigarette/Vaping Use Never Used 03/07/24 13:27 Thrive Assessment: Date of Thrive Assessment Date Thrive assessed 01/18/24 03/07/24 13:27 Const General: cooperative and no acute distress Nutritional Appearance: overweight Orientation/consciousness: patient oriented x3 Resp Effort & Inspection: normal respiratory effort Auscultation: clear to auscultation bilaterally Cardio Heart sounds: S1 normal heart sound present and S2 normal heart sound present Neuro General: patient oriented x3, gait normal and moves all extremities Psych Speech and movement: Normal speech and movement present Vital Signs: Last Vital Signs Pulse 76 03/07/24 13:43 BP 134/82 03/07/24 13:43 Pulse Ox 99 03/07/24 13:43 BMI result Body Mass Index 34.6 Const General: cooperative and no acute distress Nutritional Appearance: overweight Orientation/consciousness: patient oriented x3 Resp Effort & Inspection: normal respiratory effort Auscultation: clear to auscultation bilaterally Cardio Heart sounds: S1 normal heart sound present and S2 normal heart sound present Neuro General: patient oriented x3, gait normal and moves all extremities Psych Speech and movement: Normal speech and movement present Assessment and Plan Assessment & Plan (1) Generalized anxiety disorder: Code(s): F41.1 - Generalized anxiety disorder Plan: Ordered Hydroxyzine TID F/U with PCP if no improvement. Medications: New hydroxyzine HCl 25 mg PO TID PRN 90 tabs 1RF anxiety F41.1 - Generalized anxiety disorder Coding Level of Care Code Est Pt Level 4 (33549) Diagnoses Generalized anxiety disorder F41.1 Time Spent (min) 20 Comment Spent reviewing Hospital notes and Patient education
[2024-03-07 13:43] VITALS: BP 134/82; PULSE 76; O2SAT 99; BMI 34.6
== END 2024-03-07 14:16 | disposition home or self-care (01) ==
PROVIDERS: PCP Internal Medicine; Visit Provider Nurse Practitioner Family
DX: F41.1 Generalized anxiety disorder (principal)
CPT/HCPCS: 99213

== ENCOUNTER 2024-05-14 22:18 | Emergency (ER) | payer OTHER, SELFPAY ==
--- NOTE | ~2024-05-14 | CT_ITS ---
EXAMINATION: CT HEAD WITHOUT CONTRAST CLINICAL INFORMATION: Dizziness. Headache. COMPARISON: Report CT head 07/02/2011 TECHNIQUE: Contiguous axial imaging was performed from the skull base to vertex without intravenous administration of contrast. This CT examination was performed using dose optimization techniques as appropriate, variously including the following: *Automated exposure control *Adjustment of mA and/or kV according to patient size (this includes techniques or standardized protocols for targeted exams where dose is matched to indication/reason for exam; i.e. extremities or head) *Use of iterative reconstruction technique DLP: 743 mGy-cm FINDINGS: No intracranial hemorrhage, tumors or acute infarcts identified. The ventricles and sulci are normal in size and configuration. No focal parenchymal lesions of the brain or abnormal extra-axial fluid collections identified. Normal appearance of the orbits and globes. No extra cranial soft tissue inflammatory changes. No significant opacification of the visualized paranasal sinuses, mastoid air cells and middle ear cavities. CT/CT head/brain wo IV con IMPRESSION: Normal unenhanced CT of the head. Electronically signed by: Brian Kyle MD 05/15/2024 05:01 AM EDT
[2024-05-14 22:34] VITALS: BP 150/96; PULSE 77; RESP 19; TEMP 36.9; O2SAT 98; BMI 33.8
[2024-05-14 22:51] LABS: MANUAL DIFF FLAG NO
[2024-05-14 22:58] LABS: Basophils Absolute Auto 0.1 X10*3/uL (0.0-0.2); Basophils Percent Auto 1.1 % (0-2); Eosinophils Absolute Auto 0.4 X10*3/uL (0.0-0.4); Eosinophils Percent Auto 6.4 % (0-4); Hemoglobin 14.5 g/dl (14.0-18.0); Imm Gran Abs Auto 0.02 X10*3/uL (0.00-0.03); Imm Gran Pct Auto 0.4 % (0.0-0.4); Lymphocytes Absolute Auto 1.8 X10*3/uL (1.2-4.9); Lymphocytes Percent Auto 32.2 % (20-40); Mean Corpuscular HGB Conc 35.4 g/dl (31.0-36.0); Mean Corpuscular Hemoglobin 30.6 pg (27.0-33.0); Mean Corpuscular Volume 86.5 fL (80.0-98.0); Mean Platelet Volume 9.2 fL (9.4-12.4); Monocytes Absolute Auto 0.5 X10*3/uL (0.1-1.2); Monocytes Percent Auto 9.3 % (2-11); Neutrophils Absolute Auto 2.8 x10*3/uL (2.0-8.3); Neutrophils Percent Auto 50.6 % (45-73); Platelet Count 291 X10*3/uL (160-400); Red Blood Count 4.74 X10*6/uL (4.60-5.80); Red Cell Distribution Width 12.2 % (11.0-16.0); White Blood Count 5.5 X10*3/uL (4.8-10.8)
[2024-05-14 23:04] LABS: IDNOW Serial# 08D9AD1C
[2024-05-14 23:05] LABS: Strep A Nucleic Acid Negative (Negative)
[2024-05-14 23:06] LABS: Anion Gap 12 (12-20); Blood Urea Nitrogen 14 mg/dL (9-16); Calcium 9.4 mg/dL (8.4-10.2); Carbon Dioxide 26 mmol/L (22-29); Chloride 108 mmol/L (96-108); Creatinine Clr Calc Pharmacy 111.2; Estimated Glomerular Filt Rate > 60; Glucose Random 94 mg/dL (60-115); Potassium 4.1 mmol/L (3.3-5.1); Sodium 142 mmol/L (135-145)
[2024-05-14 23:29] LABS: Influenza A PCR NEGATIVE (Negative); Influenza B PCR NEGATIVE (Negative); Resp Syncy Virus RNA Qual PCR NEGATIVE (Negative); SARS COV2 PCR INHOUSE NEGATIVE (Negative)
--- NOTE | 2024-05-15 03:34 | PC.NURSE ---
Pt is a pleasant 33 y/o male who presents to the ED for evaluation of feeling off , light-headedness, dizziness, and abd pain that started suddenly upon waking at approximately 2050 hours. has the same symptoms. Reports feeling pressure in his head, heaviness in his feet with ambulation, and intermittent tremors/shaking. Denies feeling sick earlier in the day. No recent illness or fever. No recent travel or trauma. Denies chest pain, shortness of breath, body aches, and any vomiting. Pt is calm and cooperative, appropriate with staff. Independent with ADLs and toileting. Will continue to monitor for any changes.
--- NOTE | 2024-05-15 04:15 | ED.GENADULT ---
HPI - General Adult General Chief complaint: General Medical Stated complaint: dizzy, lightheaded Time Seen by Provider: 05/15/24 03:54 Source: patient Mode of arrival: ambulatory Limitations: no limitations History of Present Illness ED Provider: Dr. Grijalva HPI narrative: patient is a 33yo male with ocaisional migraine who presents with dizziness and head pressure. patient states he woke up with dizziness and felt like he could not walk but now has developed head pressure Onset (ago): hour(s) Related Data Previous Rx's ?Medication ?Instructions ?Recorded hydroxyzine HCl 25 mg tablet 25 mg PO TID PRN anxiety #90 tabs 03/07/24 naproxen 500 mg tablet (Naprosyn) 500 mg PO BID #20 tabs 05/15/24 Allergies Allergy/AdvReac Type Severity Reaction Status Date / Time No Known Allergies Allergy Verified 05/14/24 22:38 Review of Systems Review of Systems: Yes all other systems are reviewed and are negative Neurologic: Denies Sensory deficit (Neuro) PMFSH Past Medical History Medical History Carpal tunnel syndrome, bilateral Pure hypercholesterolemia Obesity (BMI 30-39.9) Allergic rhinitis Headache History of meconium aspiration Depression Anxiety Low back pain Chronic pain of right knee Surgical History History of carpal tunnel surgery of right wrist Hx of esophagogastroduodenoscopy History of carpal tunnel surgery of left wrist History of arthroscopy of right knee (~06/25/13) Family History Family History Father Diabetes Stroke Hypertension Mother Diabetes Social History Social History Housing: Apartment Alcohol intake: current Alcohol intake frequency: holidays/special occasions only Patient Tobacco Use Status: Never used Tobacco e-Cigarette/Vaping Use: Never Used Second Hand Smoke Exposure: Yes Advance Directives: No Advance Directives Information Provided: No Do you have a plan to hurt others: No Plan service: No Current occupational status: employed 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 Current occupational exposures/hazards: No Cognitive needs: No Hearing needs: No Vision needs: Yes (glasses) Physical Exam ED Vital Signs: Vital Signs - 24 hr 05/14/24 22:34 05/15/24 05:53 Temperature 98.5 F 97.9 F Pulse Rate 77 77 Respiratory Rate 19 18 Blood Pressure 150/96 H 144/78 H Pulse Oximetry 98 96 Oxygen Delivery Method Room Air Room Air BMI result Body Mass Index 33.8 Const Other: slightly anxious General: healthy appearing Nutritional Appearance: average body habitus Orientation/consciousness: oriented to person and patient oriented x3 Limitations: no limitations HENMT Head: Yes normal to inspection Ears: external ears normal General nose exam: Normal external nose present Mouth: Normal oral and palatal mucosa present and oropharynx normal Throat: Yes posterior oropharynx normal Eyes General: appearance normal, both eyes and all related structures Neck Neck: Yes normal visual inspection Chest Chest palpation & inspection: normal inspection of the chest Resp Auscultation: clear to auscultation bilaterally Cardio Jugular venous distension: no JVD Rate: regular rate Rhythm: regular rhythm Heart sounds: S1 normal heart sound present and S2 normal heart sound present GI Inspection: Yes normal to inspection Palpation (GI): Soft to palpation, nontender and No hepatosplenomegaly present Auscultation: normal bowel sounds General: Yes no CVA tenderness Back/Spine/Pelvis Back: no CVA tenderness Skin General skin exam: no rashes or lesions noted Neuro General: oriented to person and patient oriented x3 Cranial nerves: Yes CN's II-XII intact bilaterally Motor exam (neuro): 5/5 motor strength present throughout Sensory Exam: No Sensory deficit (Neuro) Extrem General: Yes normal to inspection Psych Appearance: grossly normal Course Reevaluation(s) Reevaluation #1: Head CT negative, neuro non focal will dc on NSAIDs for AMARAL Time: 06:06 Medications Administered Discontinued Medications Generic Name Dose Route Start Last Admin Trade Name Freq PRN Reason Stop Dose Admin Acetaminophen 975 mg 05/15/24 04:17 05/15/24 05:06 Acetaminophen 325 Mg Tablet PO 05/15/24 04:18 975 mg ONCE ONE Administration Medical Decision Making Differential Diagnosis Differential Diagnoses: The differential diagnosis associated with the presentation includes (Migraine, CVA, brain tumor, anxiety) Admission/Observation Consideration of admission/observation: Escalation of care including admission/observation considered (upon arrival patient considered for admission) Lab Data 05/14/24 22:47 05/14/24 22:46 Labs: Lab Results 05/14/24 05/14/24 Range/Units 22:46 22:47 WBC 5.5 (4.8-10.8) X10*3/uL RBC 4.74 (4.60-5.80) X10*6/uL Hgb 14.5 (14.0-18.0) g/dl Hct 41.0 L (42.0-52.0) % MCV 86.5 (80.0-98.0) fL MCH 30.6 (27.0-33.0) pg MCHC 35.4 (31.0-36.0) g/dl RDW 12.2 (11.0-16.0) % Plt Count 291 (160-400) X10*3/uL MPV 9.2 L (9.4-12.4) fL Immature Gran % (Auto) 0.4 (0.0-0.4) % Neut % (Auto) 50.6 (45-73) % Lymph % (Auto) 32.2 (20-40) % Montague % (Auto) 9.3 (2-11) % Eos % (Auto) 6.4 H (0-4) % Baso % (Auto) 1.1 (0-2) % Lymph # (Auto) 1.8 (1.2-4.9) X10*3/uL [place] # (Auto) 0.5 (0.1-1.2) X10*3/uL Eos # (Auto) 0.4 (0.0-0.4) X10*3/uL Baso # (Auto) 0.1 (0.0-0.2) X10*3/uL Abs Immat Gran (auto) 0.02 (0.00-0.03) X10*3/uL Absolute Neuts (auto) 2.8 (2.0-8.3) x10*3/uL Absolute Nucleated RBC 0.000 (0.0-0.012) X10*3/uL Nucleated RBC % (auto) 0.0 (0.0-0.2) /100WBC Sodium 142 (135-145) mmol/L Potassium 4.1 (3.3-5.1) mmol/L Chloride 108 (96-108) mmol/L Carbon Dioxide 26 (22-29) mmol/L Anion Gap 12 (12-20) BUN 14 (9-16) mg/dL Creatinine 1.00 (0.5-1.4) mg/dL Estim Creat Clear Calc 111.2 Estimated GFR > 60 Random Glucose 94 (60-115) mg/dL Calcium 9.4 (8.4-10.2) mg/dL Influenza Type A (PCR) NEGATIVE (Negative) Influenza Type B (PCR) NEGATIVE (Negative) RSV RNA Qual (PCR) NEGATIVE (Negative) SARS-CoV-2 RNA (RT-PCR) NEGATIVE (Negative) S. pyogenes GrpA CHRISTINA Negative (Negative) Independent Interpretation I performed an independent interpretation of an: CT Scan (brain: no mass or bleed) Radiology Impression Discussion of test interpretation with radiology: I have reviewed the radiologist's reading. (and agree) Tests considered The following testing was considered but not selected: MRI of brain considered for dizziness but patient nonfocal and head CT negative Discharge Plan Discharge Clinical Impression: Dizziness Headache Qualifiers: Headache type: unspecified Headache chronicity pattern: episodic headache Intractability: not intractable Qualified Code(s): R51.9 - Headache, unspecified Patient Disposition: Home, Self-Care Instructions: Acute Headache (ED) Prescriptions: New naproxen [Naprosyn] 500 mg tablet 500 mg PO BID Qty: 20 0RF No Action hydroxyzine HCl 25 mg tablet 25 mg PO TID PRN (Reason: anxiety) Qty: 90 1RF Referrals: Sampson Arreola MD [Primary Care Provider] - 5 days Print Language: Pashto
[2024-05-15] MEDS: Acetaminophen 325 MG TABLET 975 MG PO (05:06)
[2024-05-15 05:53] VITALS: BP 144/78; PULSE 77; RESP 18; TEMP 36.6; O2SAT 96
[2024-05-15 06:24] VITALS: BP 136/70; PULSE 92; RESP 16; TEMP 37.1; O2SAT 98
== END 2024-05-15 06:28 | disposition home or self-care (01) ==
PROVIDERS: Emergency Provider Emergency Medicine; PCP Internal Medicine
DX: R51.9 Headache, unspecified (principal); R42 Dizziness and giddiness; Z03.818 Encounter for observation for suspected exposure to other biological agents ruled out
CPT/HCPCS: 0241U; 36415; 70450; 80048; 85025; 87651; 99283; 99284

== ENCOUNTER 2024-07-29 08:29 | Outpatient (AMB) | payer OTHER, SELFPAY ==
[2024-07-29 08:34] VITALS: BP 122/80; PULSE 68; TEMP 37; O2SAT 98; BMI 33.7
--- NOTE | 2024-07-29 08:34 | A.OFFPC_ITS ---
Vital Signs 07/29/24 08:34 Height 5 ft 6 in Weight 209 lb 2 oz BMI 33.7 BP 122/80 Blood Pressure Location Lt brachial Position Sitting Pulse 68 Pulse Source Pulse Oximeter Temp 98.6 F Temp Source Oral Pulse Oximetry (%) 98 Oxygen Delivery Method Room Air Intake Visit Reasons: hyperlipidemia Property Technician Required: No Accompanied by: Self / Same As Patient Allergies No Known Allergies Allergy (Verified 07/29/24 08:47) Medication List - Last Reconciled 07/29/24 by JAYESH Holley hydroxyzine HCl 25 mg PO TID PRN naproxen (Naprosyn) 500 mg PO BID Tobacco use date assessed: 07/29/24 Dental Screening Dental Screen Date: 07/29/24 Did you have a dental visit in the last 12 months?: No Did you have a dental problem in the last 6 months where you did not have access to dental care?: No Was dental information given to patient?: No HPI hyperlipidemia HPI Details Patient is a 34-year-old male hypercholesterolemia, headache, obesity The patient is the patient Dr. Arreola presenting today for a follow up appointment Reports that he forgot to do repeat labs and will get those done soon as possible Anxiety has been controlled-patient reports that he takes hydroxyzine 25 mg t.i.d. p.r.n. Reports that he has been using this medication less often Reports infrequent episodes of anxiety Denies SI/HI Chest pain: Patient reports ongoing needle sharp pressure to left chest-started back in 2004. Reports that his last episode was yesterday. He was sitting and playing games with his . Reports that the sensation came on and left within seconds. Patient reports that he used to have these sensations more frequent. These episodes landed him in hospital multiple times. Patient reports that all of his test his had been negative in the past. Including EKG, CT scan of chest, and wearing an Holter monitor. He reports that when he was wearing a Holter monitor he had one of these episodes however the monitor did not show anything. He reports that they credited it to panic attack/anxiety. Patient reports that these episodes had been less frequent since switching jobs from [employer] to [employer]. Patient reports that he is concerned about these symptoms because heart issues run in his family. The patient reports that he did not feel anxious doing these episodes. Discussed with patient about getting ekg done, but the patient is concern that his insurance won't cover it. The patient is currently on hydroxyzine t.i.d. p.r.n.-discussed with patient about possibly starting something he takes daily to prevent anxiety instead treating anxiety when it is already occurring. The patient reports that he would think about it but did not want to start any medication today. -we discussed buspirone trial: the patie nt will thinks about this, follow up in 4 weeks -the patient was sent to get his labs as ap Migraines: Reports that this is well-controlled and he has been taking NSAIDS before the pain turns into a full on migraine. Reports taking medication when he starts feeling pressure behind his eyes. That is usually the sign he gets when he about to have a really bad headache. -alcohol intake ocassional -caffeine: once a day small cup [facility] Medical History (Updated 07/29/24 @ 16:46 by JAYESH Holley) Anxiety Carpal tunnel syndrome, bilateral Pure hypercholesterolemia Obesity (BMI 30-39.9) Allergic rhinitis Headache History of meconium aspiration Depression Low back pain Chronic pain of right knee Surgical History History of carpal tunnel surgery of right wrist Hx of esophagogastroduodenoscopy History of carpal tunnel surgery of left wrist History of arthroscopy of right knee (~06/25/13) Family History Father Diabetes Stroke Hypertension Mother Diabetes Social History Housing: Apartment Alcohol intake: current Alcohol intake frequency: holidays/special occasions only Patient Tobacco Use Status: Never used Tobacco e-Cigarette/Vaping Use: Never Used Second Hand Smoke Exposure: Yes service: No Current occupational status: employed Current occupation: [employer]- right hand dominant Current occupational exposures/hazards: No Cognitive needs: No Hearing needs: No Vision needs: Yes (glasses) Questionnaire PHQ-9 Over the last 2 weeks, how often have you been bothered by any of the following problems? 1. Little interest or pleasure in doing things: not at all 2. Feeling down, depressed, or hopeless: not at all 3. Trouble falling or staying asleep, or sleeping too much: not at all 4. Feeling tired or having little energy: not at all 5. Poor appetite or overeating: not at all 6. Feeling bad about yourself - or that you are a failure or have let yourself or your family down: not at all 7. Trouble concentrating on things, such as reading the newspaper or watching television: not at all 8. Moving or speaking so slowly that other people could have noticed. Or the opposite - being so fidgety or restless that you have been moving around a lot more than usual: not at all 9. Thoughts that you would be better off or of hurting yourself in some way: not at all Total score: 0 Depression Screening Interpretation: Negative Depression Screening Done: Yes 85066 - PHQ-9 Billing: Yes Source: Developed by Drs. Flaquito Braswell, Kerry Burns, Fabian Gupta and colleagues, with an educational yessica from [employer]. Thrive Questionnaire Date Thrive assessed: 07/29/24 I am a: Patient What is your living situation today?: I have a steady place to live Within the past 12 months, did the food you bought not last and you didn't have the money to get more?: Never true Within the past 12 months, did you worry whether your food would run out before you got money to buy more?: Never true Do you have trouble paying for medicines?: No Do you have trouble getting transportation to medical appointments?: No Do you have trouble paying your heating and electricity bill?: No Do you have trouble taking care of your child, family member or friend?: No Do you have trouble with day-to-day activities such as bathing, preparing meals, shopping, managing finances, etc.?: No Are you currently unemployed and looking for a job?: No Are you interested in more education?: No Please select the resources that you would like help with: None Currently or been in a relationship where the following occur: No concerns rep orted THRIVE Score: 0 AUDIT C Alcohol Use Questionnaire (AUDIT-C) 1. How often do you have a drink containing alcohol?: Monthly or less 2. How many drinks containing alcohol do you have on a typical day when you are drinking?: 1 or 2 3. How often do you have six or more drinks on one occasion?: Never Total Score: 1 Score Reviewed/Action Taken: Yes KAUSHAL-7 AMB Questionnaire KAUSHAL-7 Date KAUSHAL - 7 assessed: 07/29/24 Feeling nervous, anxious, or on edge: 0 = Not at all Not being able to stop or control worryin = Not at all Worrying too much about different things: 0 = Not at all Trouble relaxin = Not at all Being so restless that it is hard to sit still: 0 = Not at all Becoming easily annoyed or irritable: 0 = Not at all Feeling afraid as if something awful might happen: 0 = Not at all Total KAUSHAL-7 score (0-4 normal; 5-9 mild; 10-14 moderate; 15-21 severe): 0 Source: Developed by Drs. Flaquito Braswell, Kerry Burns, Fabian Gupta and colleagues, with an educational yessica from [employer]. KAUSHAL-7 Assessment Billing KAUSHAL-7 Assessment Tool: KAUSHAL-7 Assessment 54389 Review of Systems Const Details: Denies chills, Denies fatigue, Denies fever(s), Denies headache(s) and Denies weakness HEENT Denies change in vision, Denies dizziness, Denies headache(s), Denies hearing loss, Denies nasal congestion, Denies sinus pain, Denies sinus pressure and Denies sore throat Card Reports recurrent needlestick like pain in left chest (sometimes radiating to the right or sometimes starting in the right and radiating to the left with no other associated symptoms), Denies lightheadedness, Denies dyspnea and Denies other (palpitations) Resp Denies cough, Denies dyspnea and Denies wheezing GI Denies abdominal pain, Denies melena, Denies hematochezia, Denies change in bowel habits, Denies dyspepsia and Denies nausea Denies hematuria and Denies dysuria Musc Denies abnormal gait, Denies myalgias, Denies arthralgias, Denies numbness and Denies tingling Skin/Breast Denies rash, Denies unusual bruising and Denies wounds Neuro Denies abnormal gait, Denies dizziness, Denies headache(s), Denies memory loss, Denies numbness, Denies Sensory deficit (Neuro), Denies tingling and Denies weakness Psych Reports intermittent anxiety(positive effect from hydroxyzine), Denies depression and Denies memory loss Endo Denies cold intolerance, Denies fatigue, Denies heat intolerance, Denies polydipsia and Denies polyuria Matty/Lymph Denies easy bleeding and Denies easy bruising Aller/Immun Denies wheezing Physical exam (Primary Care) Vital Signs: Last Vital Signs Temp 98.6 F 07/29/24 08:34 Pulse 68 07/29/24 08:34 BP 122/80 07/29/24 08:34 Pulse Ox 98 07/29/24 08:34 Oxygen Delivery Method Room Air 07/29/24 08:34 BMI result Body Mass Index 33.7 Tobacco/Smoking Status: Tobacco use Status Tobacco use date assessed 07/29/24 07/29/24 08:37 Patient Tobacco Use Status Never used Tobacco 07/29/24 08:37 e-Cigarette/Vaping Use Never Used 07/29/24 08:37 PHQ-9: PHQ-9 Score PHQ-9: Total score 0 07/29/24 15:45 Depression Screening Interpretation: Negative Thrive Assessment: Date of Thrive Assessment Date Thrive assessed 07/29/24 07/29/24 08:37 Currently or been in a relationship where the following occur: No concerns reported Const Other: General: no acute distress, well developed, alert and awake Nutritional Appearance: well nourished Orientation/consciousness: patient oriented x3 HENMT Head: Yes normocephalic and Yes atraumatic Ears: hearing grossly normal bilaterally and TM's normal bilaterally General nose exam: Normal external nose present and Normal nares present Mouth: Normal oral and palatal mucosa present and moist mucous membranes Teeth and gingiva: dentition normal Throat: Yes oropharynx normal Eyes Pupils: Equal, round and reactive pupils present and Pupil accommodation reflex normal EOM: EOMs intact bilaterally Neck Neck: Yes normal visual inspection, Yes no lymphadenopathy and Yes trachea midline Thyroid: Thyroid normal Carotids: no bruits Lymphatic: no lymphadenopathy noted Chest Chest palpation & inspection: normal inspection of the chest Resp Effort & Inspection: normal respiratory effort Auscultation: clear to auscultation bilaterally Cardio Rate: regular rate Rhythm: regular rhythm Heart sounds: S1 normal heart sound present, S2 normal heart sound present, no gallops, no murmurs and no rubs Bruits: no abdominal aortic bruits and no carotid bruits GI Palpation (GI): No Abdominal aortic bruit present, Soft to palpation, nontender, No hepatosplenomegaly present and No Rebound tenderness present Auscultation: normal bowel sounds General: Yes no CVA tenderness Back/Spine/Pelvis Back: no CVA tenderness Cervical Spine: cervical ROM normal and No Cervical spine tenderness Thoracic/Lumbar Spine: thoraco-lumbar ROM normal, No pain with thoraco-lumbar ROM, No thoracic spinal tenderness and No lumbar spinal tenderness Skin General: warm and dry. Normal skin color. Normal skin turgor Lesions: no lesions Rashes: no rashes Trauma: no lacerations or abrasions Wounds: no wounds Nails: normal Neuro General: patient oriented x3, gait normal and CN's II-XI intact bilaterally Cranial nerves: Yes Equal, round and reactive pupils present Cognition (Neuro): normal cognition Gait exam (Neuro): Normal gait present Motor exam (neuro): 5/5 motor strength present throughout Sensory Exam: No Sensory deficit (Neuro) Deep tendon reflexes (DTR's): Right patellar reflex intensity grade: 2+ and Left patellar reflex intensity grade: 2+ Extrem General: Yes normal to inspection, No edema and No calf tenderness Psych Appearance: grossly normal Affect: normal affect Attitude: cooperative Thought process: Normal thought process present Coding Level of Care Code Est Pt Level 3 (73543) Diagnoses Chest pain at rest R07.9 Nonintractable episodic headache, unspecified headache type R51.9 Headache type: unspecified Headache chronicity pattern: episodic headache Intractability: not intractable Additional Codes KAUSHAL-7 Assessment Billing - KAUSHAL-7 Assessment Tool: KAUSHAL-7 Assessment 82420 ([id number]) PHQ-9 - 93642 - PHQ-9 Billing: Yes ([id number]) Time Spent (min) 26 Assessment & Plan Assessment & Plan (1) Chest pain at rest: Code(s): R07.9 - Chest pain, unspecified Category: Medical Plan: Reports a needle-like sensation that travels from left chest to right alternatively reports having this sensation since 2004-EKGs, CT scan, and Holter monitor all have been negative. The patient reports that it had been suspected that it was panic attacks ---labs were ordered-we will advise when resulted ---Encourage increase fluids intake (2) Headache: Code(s): R51.9 - Headache, unspecified Category: Medical Qualifiers: Headache type: unspecified Headache chronicity pattern: episodic headache Intractability: not intractable Qualified Code(s): R51.9 - Headache, unspecified Plan: Reports that this is well-controlled and he has been taking NSAIDS before the pain turns into a full on migraine. Reports taking when he starts feeling pressure behind his eyes. Encouraged increasing hydration Orders: Orders TSH reflex Free T4 Today R07.9 - Chest pain, unspecified Complete Blood Count Auto Diff Today R07.9 - Chest pain, unspecified
== END 2024-07-29 09:23 | disposition home or self-care (01) ==
PROVIDERS: PCP Internal Medicine
DX: R07.9 Chest pain, unspecified (principal); R51.9 Headache, unspecified

== ENCOUNTER → 2024-07-29 08:29 | Outpatient (BNVA) | payer OTHER, SELFPAY | PROVIDERS: PCP Internal Medicine | DX: R07.9 Chest pain, unspecified (principal); R51.9 Headache, unspecified | CPT/HCPCS: 96127; 99212 ==

== ENCOUNTER 2024-08-16 09:35 | Outpatient (REF) | payer OTHER, SELFPAY ==
--- OUTSIDE RECORDS SUMMARY | 2024-08-16 09:39 | XMS_ITS | Encounter Summary ---
Author Organization [facility] Address [address] [place] [id number] Phone Care Team Providers Care Car Pilot Name Role Phone Flaquito Pearson Primary Care Provider [phone] Encounter Details Date Type Department Care Team (Late st Contact Info) Description 03/01/2017 Conversion Encounter [facility] [address] [place] [address] Social History Tobacco Use Types Packs/Day Years Used Date Smoking Tobacco: Never Assessed Sex and Gender Information Value Date Recorded Sex Assigned at Not on file Legal Sex Male 4:21 PM EDT Gender Identity Not on file Sexual Orientation Not on file documented as of this encounter Plan of Treatment Not on file documented as of this encounter Visit Diagnoses Not on filedocumented in this encounter Care Teams Car Pilot Relationship Specialty Start Date End Date Flaquito Pearson [address] [place] [address] PCP - General 02/23/17 documented as of this encounter
--- OUTSIDE RECORDS SUMMARY | 2024-08-16 09:39 | XMS_ITS | Clinical Summary ---
Author Organization [facility] Address [address] [place] [address] Phone Care Team Providers Care Proof Machine Operator Supervisor Name Role Phone Flaquito Pearson Primary Care Provider [phone] Immunizations Name Administration Dates Next Due DTP 02/16/1994, 1,01/30/1989,11/14/18 89,1988 Hep B, ped/adol 11/07/2000,07/18/2000,05/02/2000 Hib (PRP-T) 02/06/1990 MMR 01/22/2001,02/06/1990 OPV 02/16/1994, 0,1988,08/07/18 89 Td (adult) (MBL), 2 Lf tetan us toxoid, PF, adsorbed 01/22/2001 Family History Relation Name Status Comments Brother Alive Brother: Migrai kim, Alive and well, STIBISMUS/LAZY EYE Father Father: Hyperli pidemia, Arthritis, Sudden /HI under age 55, Heart disease, Diabetes mellitus Maternal Grandfather Materna l grandfather: STROKE, Maternal Grandmother Materna l grandmother: Asthma Mother Alive Mother: Migrain es, Hyperlipidemia Sister Alive Sister: Alive a nd well Social History Tobacco Use Types Packs/Day Years Used Date Smoking Tobacco: Never Assessed Sex and Gender Information Value Date Recorded Sex Assigned at Not on file Legal Sex Male 4:21 PM EDT Gender Identity Not on file Sexual Orientation Not on file Plan of Treatment Health Maintenance Due Date Last Done Comments DTaP,Tdap,and Td Vaccines (6 - Tdap) 01/23/2001 01/22/2001, 02/16/1994, 12/10/1990, Additional history exists Varicella Vaccines (1 of 2 - 13+ 2-dose series) 2001 Consider Men B Vaccine (1 of 2 - Bexsero 2-dose series) 2004 Influenza Vaccines (#1) 2024 COVID-19 Vaccine ( season) 2024 HIB Vaccines Completed 02/06/1990 IPV Vaccines Completed 02/16/1994, 01/14, 1988, Additional history exists Hepatitis B Vaccines Completed 11/07/2000, 07/18/2000, 05/02/2000 MMR Vaccines Completed 01/22/2001, 02/06/1990 HPV Vaccines Aged Out No longer eligi ble based on patient's age to complete this topic Hepatitis A Vaccines Aged Out No long er eligible based on patient's age to complete this topic Men B Vaccine Aged Out No longer elig ible based on patient's age to complete this topic Meningococcal Vaccine Aged Out No tejas zachary eligible based on patient's age to complete this topic Pneumococcal Vaccine Aged Out No long er eligible based on patient's age to complete this topic Care Teams Proof Machine Operator Supervisor Relationship Specialty Start Date End Date Flaquito Pearson [address] [place] [id number] PCP - General 02/23/17
[2024-08-16 10:02] LABS: MANUAL DIFF FLAG NO
[2024-08-16 10:34] LABS: Basophils Absolute Auto 0.1 X10*3/uL (0.0-0.2); Basophils Percent Auto 0.8 % (0-2); Eosinophils Absolute Auto 0.3 X10*3/uL (0.0-0.4); Eosinophils Percent Auto 3.9 % (0-4); Hematocrit 45.6 % (42.0-52.0); Hemoglobin 15.7 g/dl (14.0-18.0); Imm Gran Abs Auto 0.02 X10*3/uL (0.00-0.03); Imm Gran Pct Auto 0.3 % (0.0-0.4); Lymphocytes Absolute Auto 1.7 X10*3/uL (1.2-4.9); Lymphocytes Percent Auto 22.1 % (20-40); Mean Corpuscular HGB Conc 34.4 g/dl (31.0-36.0); Mean Corpuscular Volume 87.2 fL (80.0-98.0); Mean Platelet Volume 9.3 fL (9.4-12.4); Monocytes Absolute Auto 0.5 X10*3/uL (0.1-1.2); Monocytes Percent Auto 6.5 % (2-11); Neutrophils Percent Auto 66.4 % (45-73); Platelet Count 302 X10*3/uL (160-400); Red Blood Count 5.23 X10*6/uL (4.60-5.80); Red Cell Distribution Width 12.5 % (11.0-16.0); White Blood Count 7.5 X10*3/uL (4.8-10.8)
[2024-08-16 11:08] LABS: Alanine Aminotransferase 37 U/L (0-40); Albumin Level 4.4 g/dL (3.5-5.0); Alkaline Phosphatase 58 U/L (39-117); Anion Gap 11 (12-20); Aspartate Amino Transferase 24 U/L (5-37); Bilirubin Total 0.7 mg/dL (0.0-1.0); Blood Urea Nitrogen 15 mg/dL (9-16); Calcium 9.1 mg/dL (8.4-10.2); Carbon Dioxide 25 mmol/L (22-29); Chloride 109 mmol/L (96-108); Cholesterol 193 mg/dL (<200); Estimated Glomerular Filt Rate > 60; Glucose Fasting 86 mg/dL (60-99); HDL Cholesterol 57 mg/dL (>40); LDL Cholesterol Calculated 118 mg/dL (<100); Potassium 4.4 mmol/L (3.3-5.1); Sodium 141 mmol/L (135-145); Total Protein 7.8 g/dL (6.5-8.0); Triglycerides 93 mg/dL (<150)
[2024-08-16 11:20] LABS: TSH reflex Free T4 0.92 uIU/mL (0.32-4.0)
== END 2024-08-16 09:36 | disposition home or self-care (01) ==
LOC: HO.LAB 09:35
PROVIDERS: PCP Internal Medicine
DX: R07.9 Chest pain, unspecified (principal); E78.00 Pure hypercholesterolemia, unspecified
CPT/HCPCS: 36415; 80053; 80061; 84443; 85025

== ENCOUNTER 2024-09-02 13:59 | Outpatient (AMB) | payer OTHER, SELFPAY ==
--- NOTE | 2024-09-02 14:21 | A.OFFPC_ITS ---
Vital Signs 09/02/24 14:22 Height 5 ft 6 in Weight 211 lb 2 oz BMI 34.1 BP 130/70 Blood Pressure Location Lt brachial Position Sitting Pulse 78 Pulse Source Pulse Oximeter Temp 98 F Temp Source Temporal Artery Scan Pulse Oximetry (%) 97 Oxygen Delivery Method Room Air Intake Visit Reasons: one month follow up Intake Note: Patient is here to follow up on [symptoms]. Registered Nurse Cardiac Telemetry Required: No Video Game Animator: Not Required per policy Accompanied by: Self / Same As Patient Allergies No Known Allergies Allergy (Verified 09/02/24 14:45) Medication List - Last Reconciled 09/02/24 by JAYESH Holley hydroxyzine HCl 25 mg PO TID PRN naproxen (Naprosyn) 500 mg PO BID Tobacco use date assessed: 09/02/24 Dental Screening Dental Screen Date: 07/29/24 HPI one month follow up HPI Details The patient is a 34 y/o male with significant past medical history of pure hypercholesteremia, anxiety, intermittent chest pain, migraine The patient is present for lab review due to his prior labs is cholesterol was elevated and trending the wrong direction The patient also had intermittent chest pain/tightness that is seeming to be anxiety driven Reports that when he starts to feel his chest pain coming on, he takes the hydroxyzine 25 mg and the pain goes away He reports that his migraine continue to be well controlled. Reports that it resolves with ibuprofen The patient denies sob, chest pain, heart palpitation and dizziness Denies abdominal pain or changes in his bowel habits [facility] Medical History (Updated 07/29/24 @ 16:46 by JAYESH Holley) Anxiety Carpal tunnel syndrome, bilateral Pure hypercholesterolemia Obesity (BMI 30-39.9) Allergic rhinitis Headache History of meconium aspiration Depression Low back pain Chronic pain of right knee Surgical History History of carpal tunnel surgery of right wrist Hx of esophagogastroduodenoscopy History of carpal tunnel surgery of left wrist History of arthroscopy of right knee (~06/25/13) Family History Father Diabetes Stroke Hypertension Mother Diabetes Social History Housing: Apartment Alcohol intake: current Alcohol intake frequency: holidays/special occasions only Patient Tobacco Use Status: Never used Tobacco e-Cigarette/Vaping Use: Never Used Second Hand Smoke Exposure: Yes service: No Current occupational status: employed Current occupation: [employer]- right hand dominant Current occupational exposures/hazards: No Cognitive needs: No Hearing needs: No Vision needs: Yes (glasses) Questionnaire Thrive Questionnaire Date Thrive assessed: 07/29/24 KAUSHAL-7 AMB Questionnaire KAUSHAL-7 Date KAUSHAL - 7 assessed: 07/29/24 Source: Developed by Drs. Flaquito Braswell, Kerry Burns, Fabian Gupta and colleagues, with an educational yessica from [employer]. Review of Systems Const Details: Denies chills, Denies fatigue, Denies fever(s), Denies headache(s) and Denies weakness HEENT Denies change in vision, Denies dizziness, Denies headache(s), Denies hearing loss, Denies nasal congestion, Denies sinus pain, Denies sinus pressure and Denies sore throat Card Denies chest pain, Denies lightheadedness, Denies dyspnea and Denies other (palpitations) Resp Denies cough, Denies dyspnea and Denies wheezing GI Denies abdominal pain, Denies melena, Denies hematochezia, Denies change in bowel habits, Denies dyspepsia and Denies nausea Denies hematuria and Denies dysuria Musc Denies abnormal gait, Denies myalgias, Denies arthralgias, Denies numbness and Denies tingling Skin/Breast Denies rash, Denies unusual bruising and Denies wounds Neuro Denies abnormal gait, Denies dizziness, Denies headache(s), Denies memory loss, Denies numbness, Denies Sensory deficit (Neuro), Denies tingling and Denies weakness Psych Denies anxiety, Denies depression and Denies memory loss Endo Denies cold intolerance, Denies fatigue, Denies heat intolerance, Denies polydipsia and Denies polyuria Matty/Lymph Denies easy bleeding and Denies easy bruising Aller/Immun Denies wheezing Physical exam (Primary Care) Vital Signs: Last Vital Signs Temp 98 F 09/02/24 14:22 Pulse 78 09/02/24 14:22 BP 130/70 09/02/24 14:22 Pulse Ox 97 09/02/24 14:22 Oxygen Delivery Method Room Air 09/02/24 14:22 BMI result Body Mass Index 34.1 Tobacco/Smoking Status: Tobacco use Status Tobacco use date assessed 09/02/24 09/02/24 14:25 Patient Tobacco Use Status Never used Tobacco 09/02/24 14:25 e-Cigarette/Vaping Use Never Used 09/02/24 14:25 Thrive Assessment: Date of Thrive Assessment Date Thrive assessed 07/29/24 09/02/24 14:25 Const Other: General: no acute distress, well developed, alert and awake Nutritional Appearance: well nourished Orientation/consciousness: patient oriented x3 HENMT Head: Yes normocephalic and Yes atraumatic Ears: hearing grossly normal bilaterally and TM's normal bilaterally General nose exam: Normal external nose present and Normal nares present Mouth: Normal oral and palatal mucosa present and moist mucous membranes Throat: Yes oropharynx normal Eyes Pupils: Equal, round and reactive pupils present and Pupil accommodation reflex normal EOM: EOMs intact bilaterally Neck Neck: Yes normal visual inspection, Yes no lymphadenopathy and Yes trachea midline Thyroid: Thyroid normal Carotids: no bruits Lymphatic: no lymphadenopathy noted Chest Chest palpation & inspection: normal inspection of the chest Resp Effort & Inspection: normal respiratory effort Auscultation: clear to auscultation bilaterally Cardio Rate: regular rate Rhythm: regular rhythm Heart sounds: S1 normal heart sound present, S2 normal heart sound present, no gallops, no murmurs and no rubs Bruits: no abdominal aortic bruits and no carotid bruits GI Palpation (GI): No Abdominal aortic bruit present, Soft to palpation, nontender, No hepatosplenomegaly present and No Rebound tenderness present Auscultation: normal bowel sounds General: Yes no CVA tenderness Back/Spine/Pelvis Back: no CVA tenderness Cervical Spine: cervical ROM normal and No Cervical spine tenderness Thoracic/Lumbar Spine: no lumbar tenderness to palpation Skin General: warm and dry. Normal skin color. Normal skin turgor Lesions: no lesions Nails: normal Neuro General: patient oriented x3, gait normal Cranial nerves: Yes Equal, round and reactive pupils present Cognition (Neuro): normal cognition Gait exam (Neuro): Normal gait present Extrem General: Yes normal to inspection, No edema and No calf tenderness Psych Appearance: grossly normal Affect: normal affect Attitude: cooperative Thought process: Normal thought process present Results Reviewed Results Reviewed: Laboratory Tests 08/16/24 10:00 WBC 7.5 RBC 5.23 Hgb 15.7 Hct 45.6 MCV 87.2 MCH 30.0 RDW 12.5 Plt Count 302 Sodium 141 Potassium 4.4 Chloride 109 H Carbon Dioxide 25 BUN 15 Creatinine 0.82 Estimated GFR > 60 AST 24 ALT 37 Alkaline Phosphatase 58 Triglycerides 93 Cholesterol 193 LDL Cholesterol, Calc 118 H HDL Cholesterol 57 TSH 0.92 Coding Level of Care Code Est Pt Level 3 (06378) Diagnoses Anxiety F41.9 Chest pain at rest R07.9 Pure hypercholesterolemia E78.00 Migraine without aura and without status migrainosus, not intractable G43.009 Migraine type: without aura Status migrainosus presence: without status migrainosus Intractability: not intractable Time Spent (min) 27 Assessment & Plan Assessment & Plan (1) Anxiety: Code(s): F41.9 - Anxiety disorder, unspecified Category: Medical Plan: The patient reports that his anxiety is intermittent and resolves with hydroxyzine 25 mg prn denies si/hi (2) Chest pain at rest: Code(s): R07.9 - Chest pain, unspecified Category: Medical Plan: The patient had reported chest pain/tightness in the past that is seem to be anxiety related. The patient reports that his chest pain/tightness resolves with hydroxzine 25 mg prn (3) Pure hypercholesterolemia: Code(s): E78.00 - Pure hypercholesterolemia, unspecified Category: Medical Plan: The patient LDL went to up 135 on 02/07/24, rechecked after dietary modifications 118 Encouraged the patient to continue dietary modifications (4) Migraine: Code(s): G43.909 - Migraine, unspecified, not intractable, without status migrainosus Category: Medical Qualifiers: Migraine type: without aura Status migrainosus presence: without status migrainosus Intractability: not intractable Qualified Code(s): G43.009 - Migraine without aura, not intractable, without status migrainosus Plan: stable. resolves with NSAIDS and infrequent
[2024-09-02 14:22] VITALS: BP 130/70; PULSE 78; TEMP 36.6; O2SAT 97; BMI 34.1
--- OUTSIDE RECORDS SUMMARY | 2024-09-02 15:01 | XMS_ITS | Encounter Summary ---
Author Organization [facility] Address [address] [place] [address] Phone Care Team Providers Care Fleecer Name Role Phone Flaquito Pearson Primary Care Provider [phone] Encounter Details Date Type Department Care Team (Late st Contact Info) Description 03/01/2017 Conversion Encounter [place] [facility] [address] [place] [address] Social History Tobacco Use Types Packs/Day Years [...] on filedocumented in this encounter Care Teams Fleecer Relationship Specialty Start Date End Date Flaquito Pearson [address] [place] [address] PCP - General 02/23/17 documented as of this encounter
--- OUTSIDE RECORDS SUMMARY | 2024-09-02 15:01 | XMS_ITS | Clinical Summary ---
Author Organization [facility] Address [address] [place] [address] Phone Care Team Providers Care Drafter Plumbing Name Role Phone Pearson Flaquito Razia Primary Care Provider Immunizations Immunization Administration Dates Next Due DTP 02/16/1994, 1,01/30/1989,1988,1988 Hep B, ped/adol 11/07/2000,07/18/2000,05/02/2000 Hib (PRP-T) 02/06/1990 MMR 01/22/2001,02/06/1990 OPV 02/16/1994, 0,1988,1988 Td (adult) (MBL), 2 Lf tetan us toxoid, PF, adsorbed 01/22/2001 Family History Relation Name Status Comments Brother Alive Brother: Migrai kim, Alive and well, STIBISMUS/LAZY EYE Father Father: Hyperli pidemia, Arthritis, Sudden /[place] under age 55, Heart disease, Diabetes mellitus [...] of 2 - 13+ 2-dose series) 2001 Influenza Vaccines (#1) 2024 COVID-19 Vaccine ( [...] age to complete this topic Care Teams Drafter Plumbing Relationship Specialty Start Date End Date Flaquito Pearson [address] [place] [address] PCP - General 02/23/17
== END 2024-09-02 14:56 | disposition home or self-care (01) ==
PROVIDERS: PCP Internal Medicine
DX: F41.9 Anxiety disorder, unspecified (principal); R07.9 Chest pain, unspecified; E78.00 Pure hypercholesterolemia, unspecified; G43.009 Migraine without aura, not intractable, without status migrainosus

== ENCOUNTER → 2024-09-02 13:59 | Outpatient (BNVA) | payer OTHER, SELFPAY | PROVIDERS: PCP Internal Medicine | DX: F41.9 Anxiety disorder, unspecified (principal); R07.9 Chest pain, unspecified; E78.00 Pure hypercholesterolemia, unspecified; G43.009 Migraine without aura, not intractable, without status migrainosus | CPT/HCPCS: 99212 ==

== ENCOUNTER 2024-09-19 08:25 | Outpatient (AMB) | payer OTHER, SELFPAY ==
--- OUTSIDE RECORDS SUMMARY | 2024-09-19 08:52 | XMS_ITS | Clinical Summary ---
Author Organization [facility] Address [address] [place] [address] Phone Care Team Providers Care Security Developer Name Role Phone Pearson Flaquito Randle Primary Care Provider [phone] Immunizations Immunization Administration Dates Next Due DTP 02/16/1994, 1,01/30/1989,1988,1988 Hep B, ped/adol 11/07/2000,07/18/2000,05/02/2000 Hib (PRP-T) 02/06/1990 MMR 01/22/2001,02/06/1990 OPV 02/16/1994, 0,1988,1988 Td (adult) (MBL), 2 Lf tetan us toxoid, PF, adsorbed 01/22/2001 Family History Relation Name Status Comments Brother Alive Brother: Migrai kim, Alive and well, STIBISMUS/LAZY EYE Father Father: Hyperli pidemia, Arthritis, Sudden /[place] under age 55, Heart disease, Diabetes mellitus [...] age to complete this topic Care Teams Security Developer Relationship Specialty Start Date End Date Flaquito Pearson [address] [place] [address] PCP - General 02/23/17
--- OUTSIDE RECORDS SUMMARY | 2024-09-19 08:52 | XMS_ITS | Encounter Summary ---
Author Organization [facility] Address [address] [place] [id number] Phone Care Team Providers Care Respiratory Coordinator Name Role Phone Flaquito Pearson Primary Care Provider [phone] Encounter Details Date Type Department Care Team (Late st Contact Info) Description 03/01/2017 Conversion Encounter [place] [facility] [address] [place] [address] Social History Tobacco Use Types Packs/Day Years [...] on filedocumented in this encounter Care Teams Respiratory Coordinator Relationship Specialty Start Date End Date Flaquito Pearson [address] [place] [address] PCP - General 02/23/17 documented as of this encounter
[2024-09-19 08:56] VITALS: BP 140/90; PULSE 94; TEMP 36.6; O2SAT 99; BMI 34.1
--- NOTE | 2024-09-19 08:56 | AM.OFFWIN_ITS ---
Intake Vital Signs 09/19/24 08:56 Height 5 ft 6 in Weight 211 lb BMI 34.1 BP 140/90 H Blood Pressure Location Lt brachial Position Sitting Pulse 94 Pulse Source Pulse Oximeter Temp 97.9 F Temp Source Oral Pulse Oximetry (%) 99 Oxygen Delivery Method Room Air Intake Visit Reasons: EP severe pain on RT hip Intake Note: pt is here for c/o pain on right hip, denies injury. Patient Tobacco Use Status: Never used Tobacco Allergies No Known Allergies Allergy (Verified 09/19/24 08:56) Do you need a note to return to daycare/school/sports/work: Yes HPI HPI Comments History of Present Illness Details History of Present Illness - The patient is a 34 year old male pres enting with acute sharp, shooting right hip pain x1 day. - Sudden onset of sharp right hip pain d uring routine activity, with no known injurious event. - Severity of pain fluctuates, reaching 7.5-8 out of 10, causing significant discomfort. - Pain aggravated by weight-bearing acti vities and some movements; absence of pain with palpation. - Previous episode of similar pain durin g adolescence without a conclusive diagnosis. - The patient's occupation involves [employer] lifting, possibly exacerbating the condition. - Tried ibuprofen and Tylenol for pain r elief without success. - difficulty putting pressure, sitting, walking, and standing due to pain - denies loss of strength in the right h ip or leg Physical Exam General: Cooperative, healthy appearing, comfortable, no acute distress and well developed Orientation: Patient oriented x3 Limitations: Pain and numbness in the right hip Head: Normal to inspection Ears: Hearing grossly normal bilaterally Nose: Normal external nose present Face and sinus: Normal facial exam Eyes: Appearance normal, both eyes and all related structures Neck: Normal visual inspection and Yes full ROM Respiratory: Normal respiratory effort and able to speak in complete sentences. Skin: No rashes or lesions noted Neuro: Patient oriented x3 Extremities: as below [facility] Medical History (Updated 09/19/24 @ 09:38 by Madina Monzon PA-C) Anxiety Carpal tunnel syndrome, bilateral Pure hypercholesterolemia Obesity (BMI 30-39.9) Allergic rhinitis Headache History of meconium aspiration Depression Low back pain Chronic pain of right knee Surgical History History of carpal tunnel surgery of right wrist Hx of esophagogastroduodenoscopy History of carpal tunnel surgery of left wrist History of arthroscopy of right knee (~06/25/13) Family History Father Diabetes Stroke Hypertension Mother Diabetes Social History Housing: Apartment Alcohol intake: current Alcohol intake frequency: holidays/special occasions only Patient Tobacco Use Status: Never used Tobacco e-Cigarette/Vaping Use: Never Used Second Hand Smoke Exposure: Yes service: No Current occupational status: employed Current occupation: [employer]- right hand dominant Current occupational exposures/hazards: No Cognitive needs: No Hearing needs: No Vision needs: Yes (glasses) Review of Systems Const All systems reviewed & are unremarkable except as noted in HPI and below Physical Exam Vital Signs: Last Vital Signs Temp 97.9 F 09/19/24 08:56 Pulse 94 09/19/24 08:56 BP 140/90 H 09/19/24 08:56 Pulse Ox 99 09/19/24 08:56 Oxygen Delivery Method Room Air 09/19/24 08:56 BMI result Body Mass Index 34.1 Extrem Left lower extremity: hip/thigh Details: normal to inspection and abnormal ROM Details: pain with active ROM; no tenderness, no swelling, no lacerations, no ecchymosis and no unusual warmth Assessment & Plan Assessment & Plan (1) Acute right hip pain: Code(s): M25.551 - Pain in right hip Plan: Plan Meloxicam is prescribed to alleviate inflammation, potentially reducing nerve impingement in the right hip. The patient is to avoid additional NSAIDs but may take Tylenol if needed for pain relief. Hydration is emphasized to support kidney function while taking meloxicam. Rest is advised, with a note for work absence until Sunday due to job-related physical demands. The patient is instructed to apply ice to the area to manage inflammation. Follow-up with Dr. Arreola is recommended if symptoms persist to ensure continued care and evaluation. Patient was informed and verbally consented to the use of an ambient scribe for clinic note documentation during this visit. Medications: New meloxicam 15 mg PO DAILY 15 tabs 0RF Coding Level of Care Code Est Pt Level 3 (72230) Diagnoses Acute right hip pain M25.551
== END 2024-09-19 09:44 | disposition home or self-care (01) ==
PROVIDERS: PCP Internal Medicine; Visit Provider Physician Assistant
DX: M25.551 Pain in right hip (principal)

== ENCOUNTER → 2024-09-19 08:25 | Outpatient (BNVA) | payer OTHER, SELFPAY | PROVIDERS: PCP Internal Medicine; Visit Provider Physician Assistant | DX: M25.551 Pain in right hip (principal) | CPT/HCPCS: 99212 ==

== ENCOUNTER 2024-09-29 09:50 | Outpatient (AMB) | payer OTHER, SELFPAY ==
[2024-09-29 10:03] VITALS: BP 124/86; PULSE 81; O2SAT 98; BMI 35.0
--- NOTE | 2024-09-29 10:03 | MHC.PC.OV ---
Vital Signs 09/29/24 10:03 Height 5 ft 6 in Weight 217 lb 2 oz BMI 35.0 BP 124/86 Blood Pressure Location Lt brachial Position Sitting Pulse 81 Pulse Source Pulse Oximeter Pulse Oximetry (%) 98 Oxygen Delivery Method Room Air Intake Visit Reasons: Hip pain Laboratory Analyst Required: No Accompanied by: Self / Same As Patient Allergies No Known Allergies Allergy (Verified 09/29/24 10:18) Medication List - Last Reconciled 09/29/24 by Sampson Arreola MD hydroxyzine HCl 25 mg PO TID PRN meloxicam 15 mg PO DAILY naproxen (Naprosyn) 500 mg PO BID Tobacco use date assessed: 09/29/24 Dental Screening Dental Screen Date: 09/29/24 Did you have a dental visit in the last 12 months?: No Did you have a dental problem in the last 6 months where you did not have access to dental care?: No Was dental information given to patient?: No HPI Hip pain HPI Details Patient comes in today for follow up of his right hip pain, which he states started up all of a sudden about 2 weeks ago He went to the walk-in clinic in [place] about 10 days ago and was attended to and started on Meloxicam for pain and advised to follow up with PCP if pain persists Patient denies any recent injury or trauma to his right hip and but recalls now that he was having some right hip issues/pain when he was 10 y/o but the doctors supposedly could not find anything wrong with his hip at the time States that his right hip pain eventually went away and has not bothered him until 2 weeks ago and that the pain is persistent irregardless of whether he is sitting, standing or walking but feels worse with weight-bearing States that all of the meds that he has taken so far, including the Meloxicam prescribed at the walk-in, and OTC Tylenol and Ibuprofen, have not really helped much States that he is currently also in danger of being let go by [employer] where he is currently working at, if he continues to call out of work due to his hip pain No other acute complaints or issues are noted at present [facility] Medical History Anxiety Carpal tunnel syndrome, bilateral Pure hypercholesterolemia Obesity (BMI 30-39.9) Allergic rhinitis Headache History of meconium aspiration Depression Low back pain Chronic pain of right knee Surgical History History of carpal tunnel surgery of right wrist Hx of esophagogastroduodenoscopy History of carpal tunnel surgery of left wrist History of arthroscopy of right knee (~06/25/13) Family History Father Diabetes Stroke Hypertension Mother Diabetes Social History Housing: Apartment Alcohol intake: current Alcohol intake frequency: holidays/special occasions only Patient Tobacco Use Status: Never used Tobacco e-Cigarette/Vaping Use: Never Used Second Hand Smoke Exposure: Yes service: No Current occupational status: employed Current occupation: [employer]- right hand dominant Current occupational exposures/hazards: No Cognitive needs: No Hearing needs: No Vision needs: Yes (glasses) Questionnaire PHQ-9 Over the last 2 weeks, how often have you been bothered by any of the following problems? 1. Little interest or pleasure in doing things: not at all 2. Feeling down, depressed, or hopeless: not at all 3. Trouble falling or staying asleep, or sleeping too much: not at all 4. Feeling tired or having little energy: not at all 5. Poor appetite or overeating: not at all 6. Feeling bad about yourself - or that you are a failure or have let yourself or your family down: not at all 7. Trouble concentrating on things, such as reading the newspaper or watching television: not at all 8. Moving or speaking so slowly that other people could have noticed. Or the opposite - being so fidgety or restless that you have been moving around a lot more than usual: not at all 9. Thoughts that you would be better off or of hurting yourself in some way: not at all Total score: 0 Depression Screening Interpretation: Negative Depression Screening Done: Yes 09686 - PHQ-9 Billing: Yes Source: Developed by Drs. Flaquito Braswell, Kerry Burns, Fabian Gupta and colleagues, with an educational yessica from [employer]. Thrive Questionnaire Date Thrive assessed: 09/29/24 I am a: Patient What is your living situation today?: I have a steady place to live Within the past 12 months, did the food you bought not last and you didn't have the money to get more?: Never true Within the past 12 months, did you worry whether your food would run out before you got money to buy more?: Never true Do you have trouble paying for medicines?: No Do you have trouble getting transportation to medical appointments?: No Do you have trouble paying your heating and electricity bill?: No Do you have trouble taking care of your child, family member or friend?: No Do you have trouble with day-to-day activities such as bathing, preparing meals, shopping, managing finances, etc.?: No Are you currently unemployed and looking for a job?: No Are you interested in more education?: No Please select the resources that you would like help with: None Currently or been in a relationship where the following occur: No concerns reported THRIVE Score: 0 AUDIT C Alcohol Use Questionnaire (AUDIT-C) 1. How often do you have a drink containing alcohol?: Monthly or less 2. How many drinks containing alcohol do you have on a typical day when you are drinking?: 1 or 2 3. How often do you have six or more drinks on one occasion?: Never Total Score: 1 Score Reviewed/Action Taken: Yes KAUSHAL-7 AMB Questionnaire KAUSHAL-7 Date KAUSHAL - 7 assessed: 09/29/24 Feeling nervous, anxious, or on edge: 0 = Not at all Not being able to stop or control worryin = Not at all Worrying too much about different things: 0 = Not at all Trouble relaxin = Not at all Being so restless that it is hard to sit still: 0 = Not at all Becoming easily annoyed or irritable: 0 = Not at all Feeling afraid as if something awful might happen: 0 = Not at all Total KAUSHAL-7 score (0-4 normal; 5-9 mild; 10-14 moderate; 15-21 severe): 0 Source: Developed by Drs. Flaquito Braswell, Kerry Burns, Fabian Gupta and colleagues, with an educational yessica from [employer]. Review of Systems Const Denies chills, Denies fatigue, Denies fever(s) and Denies headache(s) ENT Denies dysphagia, Denies dizziness, Denies headache(s), Denies neck pain, Denies odynophagia and Denies sore throat Card Denies chest pain, Denies palpitations and Denies dyspnea Resp Denies chest congestion, Denies cough and Denies dyspnea GI Denies abdominal pain, Denies constipation, Denies dysphagia, Denies heartburn, Denies diarrhea, Denies nausea, Denies odynophagia and Denies vomiting Denies dysuria, Denies nocturia and Denies urinary frequency Musc Denies back pain, Reports arthralgias (increased in the right hip lately) and Denies neck pain Skin/Breast Denies rash Neuro Denies dizziness and Denies headache(s) Endo Denies fatigue and Denies palpitations Physical exam (Primary Care) Vital Signs: Last Vital Signs Pulse 81 09/29/24 10:03 BP 124/86 09/29/24 10:03 Pulse Ox 98 09/29/24 10:03 Oxygen Delivery Method Room Air 09/29/24 10:03 BMI result Body Mass Index 35.0 Tobacco/Smoking Status: Tobacco use Status Tobacco use date assessed 09/29/24 09/29/24 10:09 Patient Tobacco Use Status Never used Tobacco 09/29/24 10:09 e-Cigarette/Vaping Use Never Used 09/29/24 10:09 PHQ-9: PHQ-9 Score PHQ-9: Total score 0 09/29/24 10:09 Depression Screening Interpretation: Negative Thrive Assessment: Date of Thrive Assessment Date Thrive assessed 09/29/24 09/29/24 10:09 Currently or been in a relationship where the following occur: No concerns reported Const General: no acute distress and alert Neck Neck: Yes supple and No lymphadenopathy Thyroid: Thyroid normal Resp Auscultation: clear to auscultation bilaterally, no rales and no wheezes Cardio Rate: regular rate Rhythm: regular rhythm Heart sounds: no murmurs GI Palpation (GI): Soft to palpation and nontender Auscultation: normal bowel sounds General: Yes no CVA tenderness Back/Spine/Pelvis Back: no CVA tenderness Thoracic/Lumbar Spine: No lumbar spinal tenderness Sacroiliac joints: bilaterally nontender Skin Rashes: no rashes Extrem General: Yes no clubbing, cyanosis or edema Right lower extremity: hip/thigh Details: tenderness Location: of the hip Location: posterolaterally Coding Level of Care Code Est Pt Level 3 (92621) Diagnoses Right hip pain M25.551 Additional Codes PHQ-9 - 94918 - PHQ-9 Billing: Yes ([id number]) Assessment & Plan Assessment & Plan (1) Right hip pain: Code(s): M25.551 - Pain in right hip Category: Medical Plan: Unknown etiology at this time Will send patient for right hip x-rays VIDAL for further evaluation Will also go ahead and refer him to orthopedics for further evaluation and management Have advised patient to try reaching out to the HR department at this workplace ([employer]) regarding his employment situation and out-of-work status as I do not otherwise know how to help him with his work situation other than giving him a doctor's note to extend his time-off if needed Plan To return as scheduled in January 2025 for his annual physical examination Orders: Orders XR hip RT min 2V Today M25.551 - Pain in right hip Referrals Orthopedics Referral M25.551 - Pain in right hip
--- OUTSIDE RECORDS SUMMARY | 2024-09-29 10:49 | XMS_ITS | Clinical Summary ---
Author Organization [facility] Address [address] [place] [address] Phone Care Team Providers Care Siding Applicator Name Role Phone Pearson Flaquito Randle Primary Care Provider [phone] Immunizations Immunization Administration Dates Next Due DTP 02/16/1994, 1,01/30/1989,1988,1988 Hep B, ped/adol 11/07/2000,07/18/2000,05/02/2000 Hib (PRP-T) 02/06/1990 MMR 01/22/2001,02/06/1990 OPV 02/16/1994, 0,1988,1988 Td (adult) (MBL), 2 Lf tetan us toxoid, PF, adsorbed 01/22/2001 Family History Relation Name Status Comments Brother Alive Brother: Migrai kim, Alive and well, STIBISMUS/LAZY EYE Father Father: Hyperli pidemia, Arthritis, Sudden /[place] under age 55, Heart disease, Diabetes mellitus [...] age to complete this topic Care Teams Siding Applicator Relationship Specialty Start Date End Date Flaquito Pearson [address] [place] [address] PCP - General 02/23/17
--- OUTSIDE RECORDS SUMMARY | 2024-09-29 10:49 | XMS_ITS | Encounter Summary ---
Author Organization [facility] Address [address] [place] [address] Phone Care Team Providers Care Military Science Teacher Name Role Phone Flaquito Pearson Primary Care Provider [phone] Encounter Details Date Type Department Care Team (Late st Contact Info) Description 03/01/2017 Conversion Encounter [place] [facility] [address] [place] [address] Social History Tobacco Use Types Packs/Day Years [...] on filedocumented in this encounter Care Teams Military Science Teacher Relationship Specialty Start Date End Date Flaquito Pearson [address] [place] [address] PCP - General 02/23/17 documented as of this encounter
== END 2024-09-29 10:34 | disposition home or self-care (01) ==
LOC: HO.HMCH 09:50
PROVIDERS: PCP Internal Medicine; Visit Provider Internal Medicine
DX: M25.551 Pain in right hip (principal)

== ENCOUNTER 2024-09-29 09:50 | Outpatient (REF) | payer OTHER, SELFPAY ==
--- NOTE | ~2024-09-29 | XR_ITS ---
CLINICAL HISTORY: M25.551 - Pain in right hip 2 view, pelvis and right hip Comparison: None Findings: No acute fracture or dislocation. No significant arthritic change. The soft tissues are unremarkable. IMPRESSION: No acute osseous abnormality is identified. This document has been electronically signed by: Rakesh Brantley on 09/30/2024 08:48:16
== END 2024-09-29 09:51 | disposition home or self-care (01) ==
LOC: HO.XRAY 09:50
PROVIDERS: PCP Internal Medicine; Visit Provider Internal Medicine
DX: M25.551 Pain in right hip (principal)
CPT/HCPCS: 73502; 96127; 99212

== ENCOUNTER → 2024-09-29 10:48 | Outpatient (BNV) | payer OTHER, SELFPAY | PROVIDERS: PCP Internal Medicine; Visit Provider Radiology Vascular & Interventional Radiology | DX: M25.551 Pain in right hip (principal) | CPT/HCPCS: 73502 ==

== ENCOUNTER 2024-11-17 10:43 | Outpatient (AMB) | payer OTHER, SELFPAY ==
--- NOTE | 2024-11-17 10:49 | A.OFFVIS_ITS ---
Vital Signs 11/17/24 10:58 Height 5 ft 6 in Weight 217 lb BMI 35.0 Intake Visit Reasons: New prob- Right hip pain Intake Note: Chauncey is a 34 year old male who presents today with a cane for a evaluation of his right hip pain. patient reports ongoing pain for about 2 - 3 months. Hx of right hip pain for about 20 years ago. Patient expresses that he is unsure how his pain started. He states that his pain is near the groin area and it is a sharp pain. His pain is worse when he is sitting, walking and laying down. Patient has tried and failed NSAIDs, Tylenol, Naproxen, meloxicam. Allergies No Known Allergies Allergy (Verified 09/29/24 10:18) HPI HPI New prob- Right hip pain: Details: Mr. Angeles is a 34-year-old male who presents to the office today for excruciating right hip pain. He reports that the pain has been ongoing for the past 2-3 months. He is using a cane to assist with ambulation. He denies any injury or trauma. Reports the pain is in the groin area. Denies any radiation of symptoms. Pain is worsened with sitting for long periods of time walking and lying down. He has tried and failed Tylenol, naproxen and meloxicam with no relief. Of note the patient was seen at the walk-in clinic on 09/19/2024 and again in his primary care doctor for the same issue on 09/29/2024. He is concerned about his work status as his FMLA ends in the next few weeks. [facility] Medical History Anxiety Carpal tunnel syndrome, bilateral Pure hypercholesterolemia Obesity (BMI 30-39.9) Allergic rhinitis Headache History of meconium aspiration Depression Low back pain Chronic pain of right knee Surgical History History of carpal tunnel surgery of right wrist Hx of esophagogastroduodenoscopy History of carpal tunnel surgery of left wrist History of arthroscopy of right knee (~06/25/13) Family History Father Diabetes Stroke Hypertension Mother Diabetes Social History Housing: Apartment Alcohol intake: current Alcohol intake frequency: holidays/special occasions only Patient Tobacco Use Status: Never used Tobacco e-Cigarette/Vaping Use: Never Used Second Hand Smoke Exposure: Yes service: No Current occupational status: employed Current occupation: [employer]- right hand dominant Current occupational exposures/hazards: No Cognitive needs: No Hearing needs: No Vision needs: Yes (glasses) Review of Systems Const All systems reviewed & are unremarkable except as noted in HPI and below Physical Exam Vital Signs: BMI result Body Mass Index 35.0 Const General: cooperative, healthy appearing and no acute distress Resp Effort & Inspection: normal respiratory effort and able to speak in complete sentences Extrem Other: Right hip: Full internal and external rotation with mild to moderate groin pain. No tenderness to palpation over the greater trochanteric bursa. 3/5 strength with resisted hip flexion, knee extension, abduction, and abduction. Able to perform straight leg raise with no difficulty. NVI. Assessment & Plan Assessment & Plan (1) Acute right hip pain: Code(s): M25.551 - Pain in right hip Category: Medical (2) Intractable neuropathic pain of lower extremity: Code(s): M79.2 - Neuralgia and neuritis, unspecified Category: Medical Plan Mr. Angeles is a 34-year-old male who presents to the office today for excruciating right hip pain. He reports that the pain has been ongoing for the past 2-3 months. He is using a cane to assist with ambulation. He denies any injury or trauma. Reports the pain is in the groin area. Denies any radiation of symptoms. Pain is worsened with sitting for long periods of time walking and lying down. He has tried and failed Tylenol, naproxen and meloxicam with no relief. Of note the patient was seen at the walk-in clinic on 09/19/2024 and again in his primary care doctor for the same issue on 09/29/2024. He is concerned about his work status as his FMLA ends in the next few weeks. While the patient is in the office today, he is demonstrating significant excruciating right hip pain. X-rays that were obtained on 09/29/2024 are negati ve for any acute fracture or dislocation. Therefore, I have ordered an MRI to further evaluate the integrity of the right hip and surrounding structures. He will follow up after the MRIs obtained, sooner if needed. I did provide him with an out-of-work note pending MRI imaging. Orders: Orders MR hip RT wo con Today M25.551 - Pain in right hip, M79.2 - Neuralgia and neuritis, unspecified Coding Level of Care Code Est Pt Level 3 (19555) Diagnoses Acute right hip pain M25.551 Intractable neuropathic pain of lower extremity M79.2
[2024-11-17 10:58] VITALS: BMI 35.0
--- OUTSIDE RECORDS SUMMARY | 2024-11-17 12:11 | XMS_ITS | Encounter Summary ---
Author Organization [facility] Address [address] [place] [address] Phone Care Team Providers Care Multifocal Button Generator Name Role Phone Flaquito Pearson Primary Care Provider [phone] Encounter Details Date Type Department Care Team (Late st Contact Info) Description 03/01/2017 Conversion Encounter [place] [facility] [address] [place] [address] Social History Tobacco Use Types Packs/Day Years [...] on filedocumented in this encounter Care Teams Multifocal Button Generator Relationship Specialty Start Date End Date Flaquito Pearson [address] [place] [address] PCP - General 02/23/17 documented as of this encounter
--- OUTSIDE RECORDS SUMMARY | 2024-11-17 12:11 | XMS_ITS | Clinical Summary ---
Author Organization [facility] Address [address] [place] [address] Phone Care Team Providers Care Reamer Hand Name Role Phone Pearson Flaquito Randle Primary Care Provider Immunizations Immunization Administration Dates [...] age to complete this topic Care Teams Reamer Hand Relationship Specialty Start Date End Date Flaquito Pearson [address] [place] [address] PCP - General 02/23/17
== END 2024-11-17 11:15 | disposition home or self-care (01) ==
LOC: HO.HOS 10:44
PROVIDERS: PCP Internal Medicine; Visit Provider Physician Assistant
DX: M25.551 Pain in right hip (principal); M79.2 Neuralgia and neuritis, unspecified
CPT/HCPCS: 99214

== ENCOUNTER → 2024-11-17 10:43 | Outpatient (BNVA) | payer OTHER, SELFPAY | PROVIDERS: PCP Internal Medicine; Visit Provider Physician Assistant | DX: M25.551 Pain in right hip (principal); M79.2 Neuralgia and neuritis, unspecified | CPT/HCPCS: 99212 ==

== ENCOUNTER → 2024-11-22 14:30 | Outpatient (BNV) | payer OTHER, SELFPAY | PROVIDERS: PCP Internal Medicine; Visit Provider Radiology Diagnostic Radiology | DX: M25.551 Pain in right hip (principal) | CPT/HCPCS: 73721 ==

== ENCOUNTER 2024-11-22 14:35 | Outpatient (REF) | payer OTHER, SELFPAY ==
--- NOTE | ~2024-11-22 | MR_ITS ---
CLINICAL HISTORY: M25.551 - Pain in right hip MR right hip Comparison: CR - XR HIP RT MIN 2V - 09/29/24 11:00 EDT Findings: Normal marrow signal. Normal alignment without subluxation. No retroversion, over coverage, os acetabuli. Normal head neck angle. No fibrocystic lesion of the femoral neck. No dysplasia. No joint effusion. No labral tear. The femoral and acetabular cartilage are intact. The capsule and ligaments are normal. Unremarkable muscle, tendons and entheses. Normal vessels, nerves and soft tissues. Intrapelvic contents are unremarkable. Impression: Normal MR hip. This document has been electronically signed by: Tameka García MD on 11/22/2024 18:32:46
--- OUTSIDE RECORDS SUMMARY | 2024-11-22 14:37 | XMS_ITS | Encounter Summary ---
Author Organization [facility] Address [address] [place] [address] Phone Care Team Providers Care Adventure Guide Name Role Phone Flaquito Pearson Primary Care Provider [phone] Encounter Details Date Type Department Care Team (Late st Contact Info) Description 03/01/2017 Conversion Encounter [place] [facility] [address] [place] [address] Social History Tobacco Use Types Packs/Day Years [...] on filedocumented in this encounter Care Teams Adventure Guide Relationship Specialty Start Date End Date Flaquito Pearson [address] [place] [address] PCP - General 02/23/17 documented as of this encounter
--- OUTSIDE RECORDS SUMMARY | 2024-11-22 14:37 | XMS_ITS | Clinical Summary ---
Author Organization [facility] Address [address] [place] [address] Phone Care Team Providers Care Rn Radiology Name Role Phone Pearson Flaquito Randle Primary Care Provider [phone] Immunizations Immunization Administration Dates Next Due DTP 02/16/1994, 1,01/30/1989,1988,1988 Hep B, ped/adol 11/07/2000,07/18/2000,05/02/2000 Hib (PRP-T) 02/06/1990 MMR 01/22/2001,02/06/1990 OPV 02/16/1994, 0,1988,1988 Td (adult) (MBL), 2 Lf tetan us toxoid, PF, adsorbed 01/22/2001 Family History Relation Name Status Comments Brother Alive Brother: Migrai kim, Alive and well, STIBISMUS/LAZY EYE Father Father: Hyperli pidemia, Arthritis, Sudden /[place] under age 55, Heart disease, Diabetes mellitus [...] age to complete this topic Care Teams Rn Radiology Relationship Specialty Start Date End Date Flaquito Pearson [address] [place] [address] PCP - General 02/23/17
== END 2024-11-22 14:36 | disposition home or self-care (01) ==
LOC: HO.MRI 14:35
PROVIDERS: PCP Internal Medicine; Visit Provider Physician Assistant
DX: M25.561 Pain in right knee (principal); M79.2 Neuralgia and neuritis, unspecified
CPT/HCPCS: 73721

== ENCOUNTER 2025-07-02 18:05 | Emergency (ER) | payer OTHER, SELFPAY ==
--- NOTE | ~2025-07-02 | XR_ITS ---
CLINICAL HISTORY: swelling s p cat bite 3 view left hand Comparison: None provided Findings: No fractures or dislocations. No significant arthritic change. No erosions. No radiopaque foreign body. Subcentimeter lucency at of the base of the proximal 5th metacarpal epiphysis ulnar aspect. IMPRESSION: Subcentimeter lucency at the base of the proximal 5th metacarpal epiphysis ulnar aspect; in absence of comparative studies and with present clinical history osteomyelitis can not be excluded. This document has been electronically signed by: Al Wright MD on 07/02/2025 19:47:52
[2025-07-02 18:57] VITALS: BP 165/88; PULSE 105; RESP 20; TEMP 36.8; O2SAT 98; BMI 34.7
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
[2025-07-02 20:29] LABS: MANUAL DIFF FLAG NO
[2025-07-02 20:32] LABS: Hematocrit 44.2 % (42.0-52.0); Hemoglobin 15.2 g/dl (14.0-18.0); Imm Gran Abs Auto 0.03 X10*3/uL (0.00-0.03); Imm Gran Pct Auto 0.3 % (0.0-0.4); Lymphocytes Absolute Auto 2.8 X10*3/uL (1.2-4.9); Mean Corpuscular HGB Conc 34.4 g/dl (31.0-36.0); Mean Corpuscular Hemoglobin 30.1 pg (27.0-33.0); Mean Corpuscular Volume 87.5 fL (80.0-98.0); NRBC Abs Auto 0.000 X10*3/uL (0.0-0.012); NRBC Pct Auto 0.0 /100WBC (0.0-0.2); Platelet Count 317 X10*3/uL (160-400); Red Blood Count 5.05 X10*6/uL (4.60-5.80); White Blood Count 10.7 X10*3/uL (4.8-10.8)
[2025-07-02 20:53] LABS: Alanine Aminotransferase 53 U/L (0-40); Albumin Level 4.8 g/dL (3.5-5.0); Alkaline Phosphatase 61 U/L (39-117); Anion Gap 13 (12-20); Aspartate Amino Transferase 33 U/L (5-37); Blood Urea Nitrogen 12 mg/dL (9-16); Calcium 9.7 mg/dL (8.4-10.2); Carbon Dioxide 27 mmol/L (22-29); Chloride 106 mmol/L (96-108); Creatinine Clr Calc Pharmacy 104.3; Estimated Glomerular Filt Rate > 60; Potassium 4.0 mmol/L (3.3-5.1); Sodium 142 mmol/L (135-145); Total Protein 7.7 g/dL (6.5-8.0)
[2025-07-02 21:20] VITALS: BP 136/84; PULSE 100; RESP 17; TEMP 36.9; O2SAT 96
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
--- OUTSIDE RECORDS SUMMARY | 2025-07-02 21:38 | XMS_ITS | Clinical Summary ---
Author Organization [facility] Address [address] [place] [address] Phone Care Team Providers Care General Manager Food Name Role Phone Michel Flaquito Razia Primary Care Provider [phone] Immunizations Immunization Administration Dates Next Due DTP 02/16/1994, 1,01/30/1989,1988,1988 Hep B, ped/adol 11/07/2000,07/18/2000,05/02/2000 Hib (PRP-T) 02/06/1990 MMR 01/22/2001,02/06/1990 OPV 02/16/1994, 0,1988,1988 Td (adult) (MBL), 2 Lf tetan us toxoid, PF, adsorbed 01/22/2001 Family History Relation Name Status Comments Brother Alive Brother: Migrai kim, Alive and well, STIBISMUS/LAZY EYE Father Father: Hyperli pidemia, Arthritis, Sudden /[place] under age 55, Heart disease, Diabetes mellitus [...] of 2 - 13+ 2-dose series) 2001 HPV Vaccines (1 - 3-dose SCDM series) 2015 Influenza Vaccines (#1) 2025 COVID-19 Vaccine ( season) 2025 HIB Vaccines Completed 02/06/1990 IPV Vaccines Completed 02/16/1994, 01/14, 1988, Additional history exists Hepatitis B Vaccines Completed 11/07/2000, 07/18/2000, 05/02/2000 MMR Vaccines Completed 01/22/2001, 02/06/1990 Hepatitis A Vaccines Aged Out No long [...] age to complete this topic Care Teams General Manager Food Relationship Specialty Start Date End Date Flaquito Pearson [address] [place] [address] PCP - General 02/23/17
--- OUTSIDE RECORDS SUMMARY | 2025-07-02 21:38 | XMS_ITS | Encounter Summary ---
Author Organization [facility] Address [address] [place] [phone] Phone Care Team Providers Care District Resource Officer Name Role Phone Flaquito Pearson Primary Care Provider [phone] Encounter Details Date Type Department Care Team (Late st Contact Info) Description 03/01/2017 Conversion Encounter [facility] [address] [place] [address] Social History Tobacco Use Types Packs/Day Years [...] on filedocumented in this encounter Care Teams District Resource Officer Relationship Specialty Start Date End Date Flaquito Pearson [address] [place] [address] PCP - General 02/23/17 documented as of this encounter
[2025-07-02] MEDS: Diphth,Pertus(ACell),Tet Adult 0.5 ML SYRINGE IM (22:06)
[2025-07-02 22:27] LABS: Reflex Lactate? Lactic Acid Added
[2025-07-03 00:02] LABS: ~Lactic Acid-LAB USE ONLY 1.5 mmol/L (0.5-2.0)
[2025-07-03 00:14] VITALS: BP 125/80; PULSE 69; RESP 18; TEMP 36.7; O2SAT 97
[2025-07-03 01:04] VITALS: BP 125/80; PULSE 69; RESP 18; TEMP 36.7; O2SAT 97
== END 2025-07-03 01:06 | disposition home or self-care (01) ==
PROVIDERS: Physician Assistant Medical; Emergency Provider Emergency Medicine Emergency Medical Services; PCP Internal Medicine
DX: S61.231A Puncture wound without foreign body of left index finger without damage to nail, initial encounter (principal); S61.233A Puncture wound without foreign body of left middle finger without damage to nail, initial encounter; W55.01XA Bitten by cat, initial encounter; Y93.89 Activity, other specified; Y92.039 Unspecified place in apartment as the place of occurrence of the external cause; Y99.9 Unspecified external cause status; Z23 Encounter for immunization
CPT/HCPCS: 36415; 73130; 80048; 80076; 83605; 85025; 85652; 86140; 87040; 90471; 90715; 96361; 96372; 96374; 99284; J1885

== ENCOUNTER → 2025-07-02 19:00 | Outpatient (BNV) | payer OTHER, SELFPAY | PROVIDERS: PCP Internal Medicine; Visit Provider Radiology Diagnostic Radiology | DX: R22.32 Localized swelling, mass and lump, left upper limb (principal); W55.01XA Bitten by cat, initial encounter | CPT/HCPCS: 73130 ==

== ENCOUNTER 2025-07-08 13:33 | Outpatient (AMB) | payer OTHER, SELFPAY ==
--- OUTSIDE RECORDS SUMMARY | 2025-07-08 13:36 | XMS_ITS | Encounter Summary ---
Author Organization [facility] Address [address] [place] [id number] Phone Care Team Providers Care Film Processing Supervisor Name Role Phone Flaquito Pearson Primary Care Provider [phone] Encounter Details Date Type Department Care Team (Late st Contact Info) Description 03/01/2017 Conversion Encounter [facility] [address] [place] [address] Social History Tobacco Use Types Packs/Day Years [...] on filedocumented in this encounter Care Teams Film Processing Supervisor Relationship Specialty Start Date End Date Flaquito Pearson [address] [place] [address] PCP - General 02/23/17 documented as of this encounter
--- OUTSIDE RECORDS SUMMARY | 2025-07-08 13:36 | XMS_ITS | Clinical Summary ---
Author Organization [facility] Address [address] [place] [address] Phone Care Team Providers Care Managing Director Name Role Phone Pearson Flaquito Razia Primary Care Provider [phone] Immunizations Immunization Administration Dates Next Due DTP 02/16/1994, 1,01/30/1989,1988,1988 Hep B, ped/adol 11/07/2000,07/18/2000,05/02/2000 Hib (PRP-T) 02/06/1990 MMR 01/22/2001,02/06/1990 OPV 02/16/1994, 0,1988,1988 Td (adult) (MBL), 2 Lf tetan us toxoid, PF, adsorbed 01/22/2001 Family History Relation Name Status Comments Brother Alive Brother: Migrai kim, Alive and well, STIBISMUS/LAZY EYE Father Father: Hyperli pidemia, Arthritis, Sudden /[place] under age 55, Heart disease, Diabetes mellitus [...] age to complete this topic Care Teams Managing Director Relationship Specialty Start Date End Date Flaquito Pearson [address] [place] [address] PCP - General 02/23/17
--- NOTE | 2025-07-08 13:37 | MHC.OFFVIS ---
Vital Signs 07/08/25 13:43 Height 5 ft 6 in Weight 215 lb BMI 34.7 Intake Visit Reasons: ED f/u Cat bite LT hand Intake Note: Chauncey is a 35 year old 0 hand dominant male who presents today for an ED Follow UP status post Left Hand Cat Bite, DOI 07/02/25. He was started on antibiotics while at the ED. He reports he was bitten by his own cat. Patient complains of pain on the dorsal aspect of his left index finger with difficulty bending. He continues aking his antibiotics as prescribed. Allergies No Known Allergies Allergy (Verified 07/08/25 13:43) HPI HPI ED f/u Cat bite LT hand: Details: Chauncey is a 35 year old right hand dominant male who presents today for an ED Follow UP status post Left Hand Cat Bite, DOI 07/02/25. He was started on antibiotics while at the ED. He reports he was bitten by his own cat. Patient complains of pain on the dorsal aspect of his left index finger with difficulty bending. Patient also reports some mild swelling around the puncture site on the left middle finger. He continues aking his antibiotics as prescribed. Reports that pain, swelling, and redness of all improved significantly since evaluation in the emergency department. [facility] Medical History Anxiety Carpal tunnel syndrome, bilateral Pure hypercholesterolemia Obesity (BMI 30-39.9) Allergic rhinitis Headache History of meconium aspiration Depression Low back pain Chronic pain of right knee Surgical History History of carpal tunnel surgery of right wrist Hx of esophagogastroduodenoscopy History of carpal tunnel surgery of left wrist History of arthroscopy of right knee (~06/25/13) Family History Father Diabetes Stroke Hypertension Mother Diabetes Social History Housing: Apartment Alcohol intake: current Alcohol intake frequency: holidays/special occasions only Patient Tobacco Use Status: Never used Tobacco e-Cigarette/Vaping Use: Never Used Second Hand Smoke Exposure: Yes service: No Current occupational status: employed 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 Neuro: Normal sensation of the tips of all digits of the left hand at this time Vascular: Cap refill brisk Pain: Minimal tenderness to palpation about wounds of dorsal left 2nd MCP joint, left index finger, and left middle finger Some discomfort with range of motion, particularly flexion of the left index finger, in the dorsal aspect of the left index finger ROM: Patient is able to make a closed fist and extend all digits of the left hand fully, however with discomfort in the left index finger Skin: There are several small punctate wounds noted of the left index and middle fingers, with some in the MCP joint of the left index finger, with very minimal surrounding erythema and edema. Dry, no drainage, no evidence of deeper abscess formation Psych: Appears grossly normal Affect normal Attitude cooperative Assessment & Plan Assessment & Plan (1) Cat bite of left hand: Code(s): S61.452A - Open bite of left hand, initial encounter; W55.01XA - Bitten by cat, initial encounter Category: Medical Plan 1. Cat bite of left hand Date of injury 07/02/2025 Patient appears to be recovering fairly well from his injury Patient is educated about the typical recovery course Continue antibiotics until current course ends, I do not feel there are any additional antibiotics indicated at this time Continue working on range of motion of the left hand Call our office or re-present to the ED for signs and symptoms of worsening infection, including worsening, redness, swelling, pain, or discharge from wound sites Follow-up in 1 week for wound check Patient understands this and is amenable to this plan Coding Level of Care Code Est Pt Level 3 (89134) Diagnoses Cat bite of left hand S61.452A; W55.01XA
[2025-07-08 13:43] VITALS: BMI 34.7
== END 2025-07-08 13:49 | disposition home or self-care (01) ==
LOC: HO.HOS 13:33
PROVIDERS: PCP Internal Medicine
DX: S61.452A Open bite of left hand, initial encounter (principal); W55.01XA Bitten by cat, initial encounter
CPT/HCPCS: 99213

== ENCOUNTER → 2025-07-08 13:33 | Outpatient (BNVA) | payer OTHER, SELFPAY | PROVIDERS: PCP Internal Medicine | DX: S61.452D Open bite of left hand, subsequent encounter (principal); W55.01XD Bitten by cat, subsequent encounter | CPT/HCPCS: 99212 ==

== ENCOUNTER 2025-07-15 09:41 | Outpatient (AMB) | payer OTHER, SELFPAY ==
--- NOTE | 2025-07-15 09:43 | A.OFFVIS_ITS ---
Vital Signs 07/15/25 09:45 Height 5 ft 6 in Weight 215 lb BMI 34.7 Intake Visit Reasons: OV-f/u Cat bite LT hand-one week follow up Intake Note: Chauncey is a 35 year old right hand dominant male who presents today for a Wound Check status post Left Hand Cat Bite, DOI 07/02/25. At his last visit he was advised to finish taking his antibiotics and work on his ROM. Patient reports he continues to have tightnes when bending his left index finger. Patient has completed antibiotic treatment. Allergies No Known Allergies Allergy (Verified 07/15/25 09:46) HPI HPI OV-f/u Cat bite LT hand-one week follow up: Details: Chauncey is a 35 year old right hand dominant male who presents today for a Wound Check status post Left Hand Cat Bite, DOI 07/02/25. At his last visit he was advised to finish taking his antibiotics and work on his ROM. Patient reports he continues to have tightnes when bending his left index finger. Patient also reports some discomfort that has continued around the wound sites. Patient states overall, he is improved significantly. No other acute complaints or concerns at this time. Patient has completed antibiotic treatment. [facility] Medical History Anxiety Carpal tunnel syndrome, bilateral Pure hypercholesterolemia Obesity (BMI 30-39.9) Allergic rhinitis Headache History of meconium aspiration Depression Low back pain Chronic pain of right knee Surgical History History of carpal tunnel surgery of right wrist Hx of esophagogastroduodenoscopy History of carpal tunnel surgery of left wrist History of arthroscopy of right knee (~06/25/13) Family History Father Diabetes Stroke Hypertension Mother Diabetes Social History Housing: Apartment Alcohol intake: current Alcohol intake frequency: holidays/special occasions only Patient Tobacco Use Status: Never used Tobacco e-Cigarette/Vaping Use: Never Used Second Hand Smoke Exposure: Yes service: No Current occupational status: employed 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 Current occupational exposures/hazards: No Cognitive needs: No Hearing needs: No Vision needs: Yes (glasses) Review of Systems Const All systems reviewed & are unremarkable except as noted in HPI and below Physical Exam Vital Signs: BMI result Body Mass Index 34.7 Extrem Other: Patient is alert, oriented, and in no acute distress. Neuro: Normal sensation of the tips of all digits of the left hand at this time Vascular: Cap refill brisk Pain: Very minimal Minimal tenderness to palpation about wounds of dorsal left 2nd MCP joint, left index finger, and left middle finger Some discomfort with range of motion, particularly flexion of the left index finger, in the dorsal aspect of the left index finger ROM: Patient is able to make a closed fist and extend all digits of the left hand fully, however with discomfort in the left index finger Skin: There are several small punctate wounds noted of the left index and middle fingers, with some in the MCP joint of the left index finger, with very minimal surrounding erythema and edema. Dry, no drainage, no evidence of deeper abscess formation. These wounds appear to be healing well. Psych: Appears grossly normal Affect normal Attitude cooperative Assessment & Plan Assessment & Plan (1) Cat bite of left hand: Code(s): S61.452A - Open bite of left hand, initial encounter; W55.01XA - Bitten by cat, initial encounter Category: Medical Plan 1. Cat bite of left hand Date of injury 07/02/2025 Patient appears to be recovering fairly well from his injury Patient is educated about the typical recovery course No need for further antibiotics Call our office or re-present to the ED for signs and symptoms of worsening infection, including worsening, redness, swelling, pain, or discharge from wound sites Follow-up as needed with any acute concerns Patient understands this and is amenable to this plan Coding Level of Care Code Est Pt Level 3 (63112) Diagnoses Cat bite of left hand S61.452A; W55.01XA
[2025-07-15 09:45] VITALS: BMI 34.7
--- OUTSIDE RECORDS SUMMARY | 2025-07-15 10:14 | XMS_ITS | Encounter Summary ---
Author Organization [facility] Address [address] [place] [phone] Phone Care Team Providers Care Occupational Health Nurse Supervisor Name Role Phone Flaquito Pearson Primary Care Provider [phone] Encounter Details Date Type Department Care Team (Late st Contact Info) Description 03/01/2017 Conversion Encounter [facility] [address] [place] [address] Social History Tobacco Use Types Packs/Day Years [...] on filedocumented in this encounter Care Teams Occupational Health Nurse Supervisor Relationship Specialty Start Date End Date Flaquito Pearson [address] [place] [address] PCP - General 02/23/17 documented as of this encounter
--- OUTSIDE RECORDS SUMMARY | 2025-07-15 10:14 | XMS_ITS | Clinical Summary ---
Author Organization [facility] Address [address] [place] [address] Phone Care Team Providers Care Powerplant Operator Name Role Phone Michel Flaquito Razia Primary Care Provider [phone] Immunizations Immunization Administration Dates Next Due DTP 02/16/1994, 1,01/30/1989,1988,1988 Hep B, ped/adol 11/07/2000,07/18/2000,05/02/2000 Hib (PRP-T) 02/06/1990 MMR 01/22/2001,02/06/1990 OPV 02/16/1994, 0,1988,1988 Td (adult) (MBL), 2 Lf tetan us toxoid, PF, adsorbed 01/22/2001 Family History Relation Name Status Comments Brother Alive Brother: Migrai kim, Alive and well, STIBISMUS/LAZY EYE Father Father: Hyperli pidemia, Arthritis, Sudden /PR under age 55, Heart disease, Diabetes mellitus [...] age to complete this topic Care Teams Powerplant Operator Relationship Specialty Start Date End Date Flaquito Pearson [address] [place] [address] PCP - General 02/23/17
== END 2025-07-15 10:02 | disposition home or self-care (01) ==
LOC: HO.HOS 09:41
PROVIDERS: PCP Internal Medicine
DX: S61.452A Open bite of left hand, initial encounter (principal); W55.01XA Bitten by cat, initial encounter
CPT/HCPCS: 99213

== ENCOUNTER → 2025-07-15 09:41 | Outpatient (BNVA) | payer OTHER, SELFPAY | PROVIDERS: PCP Internal Medicine | DX: S61.452D Open bite of left hand, subsequent encounter (principal); W55.01XD Bitten by cat, subsequent encounter | CPT/HCPCS: 99212 ==